=== PATIENT | female | born 1940 | race Caucasian/White ===

== ENCOUNTER 2023-06-30 14:22 | Inpatient (IN) | payer MEDICARE, SELFPAY ==
[2023-06-30 14:30] VITALS: BP 118/73; PULSE 110; RESP 20; TEMP 37.2; O2SAT 95
--- NOTE | 2023-06-30 14:48 | W.ED.GENAD ---
Discharge Plan Disposition Patient Disposition: Admit to [facility] Condition: Poor Discharge Details Clinical Impression: OSWALDO (acute kidney injury), CAP (community acquired pneumonia), Sepsis Primary Care Provider: Unknown,Unknown ED Provider: Marco Ria and New Rx's Prescriptions: No Action levothyroxine Patient Comments: pt does not know the dose of medication atorvastatin Patient Comments: pt states takes a statin every night but doesnt know dose or which brand DuoNeb Rx Instructions: pt states taking a nebulizer 2x daily but does not know the kind of medication. Medical Decision Making Patient presenting with overall vague symptoms with report of recent flulike illness. She does report cough with increased sputum production and has markedly diminished breath sounds in the right base with wheeze and rhonchi scattered throughout the rest of her lung guajardo. She appears to be extremely dehydrated and dry. IV ordered with a liter of fluids, laboratory studies, chest x-ray, urinalysis, EKG. Patient's EKG is sinus rhythm, nonspecific ST changes, nothing acute. White count markedly elevated to 31.6. She is anemic. Likely has OSWALDO with a BUN of 38 and a creatinine of 1.1 but no baseline here. Nasal swab is negative for flu, COVID, RSV. Chest x-ray per my read with large right pneumonia. She is ordered for IV ceftriaxone and oral azithromycin. She is finishing her liter of LR. Still has not produced urine and will likely need more fluids. Blood pressure remained stable. Discussed with hospitalist service. Patient accepted for admission to [facility] for further management. Lab Data Lab results reviewed: Yes I reviewed the patient's lab results. ECG Data Attestation: I personally reviewed and interpreted this ECG (s) as follows: Prior ECG tracings: not available for review Interpretation: see EKG HPI General Mode of arrival: wheelchair. Date/Time Provider Initiated Documentation: 06/30/23 14:48. Information obtained by: patient and family. HPI Narrative: Patient presents to ED brought in by her brother with generalized weakness, malaise, body aches, chapped lips. Reportedly had flulike symptoms a couple weeks ago. Seem to get over that for the most part but continues to have cough productive of sputum, generalized weakness and malaise, body aches. Her primary care physician is over in the [facility]. She has history of COPD and uses DuoNebs. She does not complain of worsening shortness of breath but does complain of cough productive of thick sputum. She has had decreased oral intake. She denies having headache, chest pain, abdominal pain, back pain. Related Data Home Medications Medication Instructions Recorded Confirmed DuoNeb 06/30/23 atorvastatin 06/30/23 levothyroxine 06/30/23 Allergies Allergy/AdvReac Type Severity Reaction Status Date / Time No Known Allergies Allergy Unverified 06/30/23 14:38 General Stated Complaint: GenMedical KRISTIN: 3 Review of Systems Narrative: per HPI PFSH All Active Problems (Updated 06/30/23 @ 16:42 by Marco Rai MD) Sepsis (Acute) CAP (community acquired pneumonia) (Acute) OSWALDO (acute kidney injury) (Acute) Medical History COPD (chronic obstructive pulmonary disease) Hypothyroid Hypercholesterolemia Social History Smoking/Tobacco Use Status: Never Smoking risk assessment performed?: Yes Exam Narrative Exam Narrative: Const: Frail thin elderly female in NAD. HEENT: NC/AT. Normal facial exam. Dry mucous membranes. Eyes: Normal conjunctiva and sclera. Neck: Supple. Trachea midline. Lungs: Normal respiratory effort. Lungs very diminished in the right base with faint wheeze and rhonchi throughout rest of lung guajardo. Cor: RRR with loud mitral murmur and displaced PMI. GI: Soft. NT/ND. No guarding or rebound Neuro: A+O x 3. Normal speech, mentation, gait. Cranial nerves II - XII grossly intact. No gross motor or sensory deficit. Ext: No C/C. 2+ bilateral lower extremity edema. Skin: Warm and dry without rash. Course Vital Signs Vital signs: Vital Signs Temperature 99.0 F 06/30/23 14:30 Pulse 110 H 06/30/23 14:30 Respiratory Rate 20 06/30/23 14:30 Blood Pressure 118/73 06/30/23 14:30 Pulse Oximetry 95 06/30/23 14:30 Temperature 99.0 F 06/30/23 14:30 Temperature Source Skin 06/30/23 14:30 Pulse 110 H 06/30/23 14:30 Respiratory Rate 20 06/30/23 14:30 Blood Pressure 118/73 06/30/23 14:30 Blood Pressure Position Sitting 06/30/23 14:30 Pulse Oximetry 95 06/30/23 14:30 Oxygen Delivery Method Room Air 06/30/23 14:30 Oxygen Flow Rate 0 06/30/23 14:30 Pain Level 10 06/30/23 14:30
--- NOTE | 2023-06-30 15:00 | RT.EKG_ITS ---
APPROVED REPORT Exam: Resting ECG Reason for Exam: tachycardia Patient Location: E HR:96 bpm ECG Measurements Heart Rate 96 AXIS NE 134 P 87 QRSd 93 QRS 79 QT 339 T 82 QTc 428 Conclusion Sinus rhythm...normal P axis, V-rate 60- 99 Probable left atrial enlargement...P >50mS, <-0.10mV V1 Nonspecific T abnrm, anterolateral leads...T <-0.10mV, I aVL V2-V6 I have reviewed and interpreted ECG and agree with software generated interpretation.
[2023-06-30] MEDS: Lactated Ringers 1,000 ML 1000 ML IV (15:33)
[2023-06-30 15:36] LABS: HCT 31.1 % (36.0-46.0); HGB 9.9 g/dL (11.2-15.7); MCH 26.5 pg (27.0-33.0); MCHC 31.8 % (32.0-36.0); MCV 83 fL (80-95); Platelet Count 503 10^3/uL (130-400); RBC 3.74 10^6/uL (3.93-5.22); RDW 16.1 % (11.7-14.6); RDW-SD 49.1 fL
[2023-06-30 15:48] LABS: Absolute Lymphocyte Count 0.32 10^3/uL (1.2-3.4); Absolute Monocyte Count 1.58 10^3/uL (0.1-0.8); Absolute Neutrophil Count 29.66 10^3/uL (1.2-6.7); Bands % 1
[2023-06-30 15:49] LABS: Diff Comment Diff Reviewed; Hypochromasia 1+
[2023-06-30 15:50] LABS: WBC 31.55 10^3/uL (4.4-10.8)
[2023-06-30 15:51] LABS: ALT 29 U/L (14-59); AST 31 U/L (15-37); Albumin 2.2 g/dL (3.4-5.0); Alkaline Phosphatase 157 U/L (46-116); Anion Gap 9.4 mmol/L (3-11); BUN 38 mg/dL (7-18); Bilirubin, Total 0.7 mg/dL (0.2-1.0); CO2 28.6 mmol/L (21.0-32.0); CREATININE 1.1 mg/dL (0.55-1.02); Calcium 9.5 mg/dL (8.5-10.1); Chloride 97 mmol/L (98-107); Estimated GFR 50.48 (mL/min/1.73m2); Glucose 96 mg/dL (74-106); Magnesium 2.1 mg/dL (1.8-2.4); Potassium 3.8 mmol/L (3.5-5.1); Sodium 135 mmol/L (136-145); Total Protein 7.8 g/dL (6.4-8.2)
[2023-06-30 16:18] LABS: COVID-19 PCR Negative (Negative); Influenza A PCR Negative (Negative); Influenza B PCR Negative (Negative); RSV PCR Negative (Negative)
[2023-06-30 16:21] LABS: Source Nasopharynx
--- NOTE | 2023-06-30 16:30 | DI.RAD_ITS ---
Exam(s) XR CHEST 2V PA LATERAL EXAM: XR CHEST 2V PA LATERAL CLINICAL HISTORY: cough, decreased left breath sounds TECHNIQUE: 2D digital imaging was performed of the chest. Two images were obtained. PA and lateral views were obtained. COMPARISON: No exams were available for comparison FINDINGS: MEDIASTINUM: Normal. HEART: Normal. PULMONARY VASCULATURE: Normal. LUNGS: The lungs appear hyperinflated suggesting underlying COPD. Multifocal opacities are seen in t he lungs. PLEURAL SPACE: No pleural effusion or pneumothorax. BONE:Within normal limits for the patient's age. OTHER FINDINGS:Normal. IMPRESSION: Multifocal opacities in the lung suspicious for pneumonia. DATA REPOSITORY: RADIATION DOSE DELIVERED:
--- NOTE | 2023-06-30 17:13 | W.PM.HP.N ---
Date of service: 06/30/23 Time of Service: 17:13 Assessment and Plan Assessment and plan (1) Sepsis: Status: Acute Assessment and plan: Tachycardic, elevated white blood count, and lactate 1.6. Received IV hydration. Source community-acquired pneumonia, we will continue antibiotic therapy as initiated in the ED blood cultures are pending heart rate has improved to the 90s. Trend lactic acid (2) CAP (community acquired pneumonia): Status: Acute Assessment and plan: Admit to the medical surgical unit continue day 1 of ceftriaxone and azithromycin We will add Mucinex nebulizer Acapella and incentive spirometer. (3) OSWALDO (acute kidney injury): Status: Acute Assessment and plan: Receiving IV hydration will avoid nephrotoxic drugs and renal dose meds as needed Suspect prerenal due to dehydration (4) Hypothyroid: Status: Chronic Assessment and plan: We will continue levothyroxine after med rec check by [facility] telepharmary check TSH (5) Discharge planning issues: Status: Acute Assessment and plan: Patient will consult physical therapy for discharge planning recommendations DVT prophylaxis with enoxaparin daily Case management will be following for discharge planning Discussed with Dr. Wing History of Present Illness History of Present Illness Chief Complaint: cough Narrative: This is an 83-year-old female patient who resides with her brother and his who presents for evaluation to the emergency department cough increased sputum production and malaise. She is a poor historian. She denies fever or chest pain. Her work-up in the emergency department included routine lab chest x-ray UA EKG. She received a liter of fluid. Her work-up significant for elevated white blood count viral swab negative for flu COVID RSV. Chest x-ray significant for right-sided pneumonia. She received ceftriaxone and azithromycin and will be admitted to hospitalist services for further management. Review of Systems All systems reviewed & are unremarkable except as noted in HPI and below PFSH All Active Problems (Updated 06/30/23 @ 21:09 by Kassie Garrison NP) Discharge planning issues (Acute) Hypothyroid (Chronic) Sepsis (Acute) CAP (community acquired pneumonia) (Acute) OSWALDO (acute kidney injury) (Acute) Medical History COPD (chronic obstructive pulmonary disease) Hypothyroid Hypercholesterolemia Social History Smoking/Tobacco Use Status: Never Smoking risk assessment performed?: Yes Housing: house Meds Allergies and Home Medications Allergies Allergy/AdvReac Type Severity Reaction Status Date / Time No Known Allergies Allergy Unverified 06/30/23 14:38 Home Medications Medication Instructions Recorded Confirmed Type DuoNeb 06/30/23 History atorvastatin 06/30/23 History levothyroxine 06/30/23 History Exam Narrative Exam Narrative: Frail elderly female in no acute distress resting on the stretcher. Head is atraumatic oral mucosa slightly dry, no JVD, cardiovascular regular rate and rhythm respirations are even and unlabored breath sounds diminished throughout with scattered expiratory wheeze. Abdomen benign extremities trace edema bilateral lower moves all extremities. She is nontoxic-appearing and well perfused no oxygen requirement satting in the mid 90s on room air. Const General: cooperative and comfortable Nutritional Appearance: thin Orientation: alert and awake HENTX Head: normal to inspection, normocephalic and atraumatic Results Labs 06/30/23 15:28 06/30/23 15:28 Labs: Laboratory Results - last 24 hr 06/30/23 06/30/23 15:25 15:28 WBC 31.55 H* RBC 3.74 L Hgb 9.9 L Hct 31.1 L MCV 83 MCH 26.5 L MCHC 31.8 L RDW 16.1 H Plt Count 503 H MPV 9.0 Immature Gran % 0.0 Neutrophils % 93.0 Band Neutrophils % 1 Lymphocytes % 1.0 Monocytes % 5.0 Eosinophils % 0.0 Basophils % 0.0 Nucleated RBC % 0.0 Absolute Neutrophils 29.66 H Absolute Lymphocytes 0.32 L Absolute Monocytes 1.58 H Absolute Eosinophils 0.00 Absolute Basophils 0.00 RBC Morphology See Below Hypochromasia 1+ Sodium 135 L Potassium 3.8 Chloride 97 L Carbon Dioxide 28.6 Anion Gap 9.4 BUN 38 H Creatinine 1.1 H Est GFR (CKD-EPI 2020) 50.48 Glucose 96 Calcium 9.5 Magnesium 2.1 Total Bilirubin 0.7 AST 31 ALT 29 Alkaline Phosphatase 157 H Total Protein 7.8 Albumin 2.2 L COVID-19 Source Nasopharynx SARS-CoV-2 (PCR) Negative Influenza Type A (PCR) Negative Influenza Type B (PCR) Negative RSV (PCR) Negative Last Vital Signs Temp 37.2 C 06/30/23 14:30 Pulse 110 H 11/17/23 14:30 Resp 20 06/30/23 14:30 BP 118/73 06/30/23 14:30 Pulse Ox 95 06/30/23 14:30 Time Spent Time spent with Patient: 40-54 minutes Time was spent: preparing to see the patient(eg.review tests), obtaining and/or reviewing separately otained hiistory, ordering medications,tests, procedures, indepentently interpreting results and counseling the patient
[2023-06-30 17:14] LABS: Lactate 1.1 mmol/L (0.6-1.4)
[2023-06-30] MEDS: cefTRIAXone 1 GM/50 ML BAG IVPB (17:34)
[2023-06-30 18:03] VITALS: BP 146/82; PULSE 99; RESP 18; TEMP 35.6; O2SAT 94
[2023-06-30] MEDS: Enoxaparin 40 MG/0.4 ML SYR SC (19:30)
[2023-06-30 20:00] VITALS: BP 146/82; PULSE 99; RESP 18; TEMP 35.6; O2SAT 94
[2023-06-30 20:02] LABS: Lactate 1.6 mmol/L (0.6-1.4)
[2023-06-30 22:51] LABS: Lactate 0.9 mmol/L (0.6-1.4)
[2023-07-01] MEDS: Lactated Ringers 1,000 ML 75 ML IV (00:40)
[2023-07-01 01:24] LABS: Bilirubin Negative (Negative); Blood Negative (Negative); Clarity Clear (Clear); Glucose Negative (Negative); Ketones Negative (Negative); Leukocyte Esterase Negative (Negative); Nitrite Negative (Negative); Specific Gravity 1.015 (1.005-1.025); pH 5.5 (5-8)
[2023-07-01 06:45] LABS: HCT 26.3 % (36.0-46.0); HGB 8.2 g/dL (11.2-15.7); MCH 26.1 pg (27.0-33.0); MCHC 31.2 % (32.0-36.0); MCV 84 fL (80-95); MPV 9.4 fL (8.0-11.0); Platelet Count 422 10^3/uL (130-400); RBC 3.14 10^6/uL (3.93-5.22); RDW-SD 48.9 fL; WBC 17.83 10^3/uL (4.4-10.8)
[2023-07-01 07:09] VITALS: BP 137/67; PULSE 74; RESP 16; TEMP 36.5; O2SAT 95
--- NOTE | 2023-07-01 07:10 | NUR.NOTE ---
Accessed pt chart to determine number of EKG orders. Nursing Note:
[2023-07-01 07:16] LABS: Anion Gap 5.7 mmol/L (3-11); BUN 31 mg/dL (7-18); CO2 29.3 mmol/L (21.0-32.0); CREATININE 0.9 mg/dL (0.55-1.02); Calcium 8.7 mg/dL (8.5-10.1); Chloride 101 mmol/L (98-107); Estimated GFR 64.23 (mL/min/1.73m2); Glucose 104 mg/dL (74-106); Magnesium 1.8 mg/dL (1.8-2.4); Potassium 3.1 mmol/L (3.5-5.1); Sodium 136 mmol/L (136-145); TSH (W/Ref FT4) 7.83 uIU/mL (0.36-3.74)
[2023-07-01 07:32] LABS: FREE T4 1.33 ng/dL (0.76-1.46)
--- NOTE | 2023-07-01 07:53 | TELEP.MEDR_ITS ---
Date of service: 07/01/23 Time of Service: 07:54 Telepharmacy Home Med Rec Allergies Allergies: No Known Allergies Allergy (Unverified 06/30/23 14:38) Interview Person Interviewed: * Patient Quality Quality of Interview/Accuracy of Medication List: Good Sources Sources used to compile medication list: Xopik Medication List and SureScripts Changes made to Home Medication List: ADDITIONS: * Vitamin D 2000 units PO daily * Calcium 1200mg PO daily DELETIONS: * none CHANGES: * none Additional Notes Additional Notes: * none Recommended Changes Recommended Changes(reason for recommendation): * none Attestation: The home medication list is now updated to the best of my knowledge and is ready to be reconciled by the provider. Please contact the TelePharmacy Medication Reconciliation Pharmacist at for any questions.
--- NOTE | 2023-07-01 07:53 | TELEP.MEDREC ---
Date of service: 07/01/23 Time of Service: 07:54 Telepharmacy Home Med Rec Allergies Allergies: No Known Allergies Allergy (Unverified 06/30/23 14:38) Interview Person Interviewed: Patient Quality Quality of Interview/Accuracy of Medication List: Good Sources Sources used to compile medication list: ROXIMITY Medication List and SureScripts Changes made to Home Medication List: ADDITIONS: Vitamin D 2000 units PO daily Calcium 1200mg PO daily DELETIONS: none CHANGES: none Additional Notes Additional Notes: none Recommended Changes Recommended Changes(reason for recommendation): none Attestation: The home medication list is now updated to the best of my knowledge and is ready to be reconciled by the provider. Please contact the TelePharmacy Medication Reconciliation Pharmacist at for any questions.
--- NOTE | 2023-07-01 08:33 | IN_ITS ---
PT Notes Visit Reasons: Sepsis PNA Inpatient Physical Therapy Evaluation Date: 07/01/23 Referring Doctor: Kassie Garrison NP PT Orders: PT CONSULT: safety consultation for discharge planning Precautions: fall Patient Profile/Admitting Diagnosis: This is an 83-year-old female who presented for evaluation to the emergency department cough increased sputum production and malaise She was admitted for management of community acquired pneumonia and sepsis. Social History/Home Situation: Patient lives with her brother and his . Ambulates independently without device. No longer drives. States that she's always been in excellent health, and has only been in the hospital once before. She's very anxious to return home. Equipment Owned/DME: none Subjective: Jess initially declines PT, stating she'd like to eat her aydin akfast first. She reports that she was able to walk to the chair from her bed without difficulty. Denies h/o falls. Objective: General Observation: Resting in chair with IV in LUE. Mental Status: A&Ox3. Has specific questions about her medications and medical management; deferred questions to nursing and medical staff. Requires redirecting for purpose of PT consultation. Pain: denies ROM: Right Upper Extremity: WFL Left Upper Extremity: WFL Right Lower Extremity: WFL Left Lower Extremity: WFL Strength: Right Upper Extremity: Grossly 3/5 for all motions. Quality Control Lab Technician is strong and equal. Left Upper Extremity: Grossly 3/5 for all motions. Quality Control Lab Technician is strong and equal. Right Lower Extremity: Hip flexion 5/5. Quads 5/5. DF 5/5. Left Lower Extremity: Hip flexion 5/5. Quads 5/5. DF 5/5. Bed Mobility/Transfers: reports independent bed mobility sit-stand: supervision stand-sit: supervision Gait: Ambulates 150' with FWW, SBA. Requires min cues for FWW management. Balance: Static Sitting: normal Dynamic Sitting: good Static Standing: good Dynamic Standing: fair Special Tests: Mobility Limitations Standardized Measure [facility] AM-PAC 6 clicks Basic Mobility Inpatient Short Form: Raw Score: 22 CMS Score: 21% impairment Informed Consent/Education: Patient instructed in purpose of PT consult and plan of care. Treatment: Initial Evaluation (89089) Therapeutic Activities ([id number]) (15 minutes) -began with static standing, 30 seconds x 2. Patient requires wide HOLLAND and demonstrates stooped trunk positioning -ambuates as above, with need for cues for FWW management. Patient opts to ambulate with walker, stating she's been in bed too long and feels wobbly. -upon return to room, ambulates 6' with supervision only, no AD Assessment: Patient is an 83 year old female referred to physical therapy services for safety consult for discharge planning. Patient presents with decreased balance and activity tolerance related to acute illness. Although she required FWW for initiation of gait today, she demosntrated safe short distance ambulation in her room without AD. She additionally has built in rails from her bedroom to the living space in her home, and do not anticipate need for AD upon discharge. She requires skilled PT intervention during her acute care stay to maximize mobility and safety, and is safe for d/c home with family support once medically stable. She currently demonstrates the following impairment level findings: 1. decreased balance 2. decreased activity tolerance Impairments are contributing to the following functional limitations: 1. requiring UE support for community distance ambulation Patient is assessed as low 10729 complexity based on the following: History: Patient is an 83 year old female seen in acute care setting where she is being managed for pneumonia and sepsis. Complicating factors include advanced age and acute medical issues. Examination: functional limitations as above Presentation: stable Decision Making: low Goals: Goals X1 week 1. Supine-Sit : supervision 2. Sit-Supine : supervision 3. Sit-Stand : supervision 4. Stand-Sit : supervision 5. Bed-Chair : supervision 6. Chair-Bed : supervision 7. Gait : supervision wihtout AD x 50' Plan of Care/Treatment Plan: 1-2x/day, 7 days/week x 1 week. Plan of care has been reviewed with the DECORATING CONSULTANT providing the service under Physical Therapy direction. Initiate Physical Therapy intervention for strengthening, bed mobility, transfers, gait, stairs, balance training, use of assistive device. DISCHARGE RECOMMENDATIONS: Home with services ( PT) TREATMENT CODE/TIME: [id number]; [id number] ([id number], [id number]) Janey Shea, PT, DPT [facility]
--- NOTE | 2023-07-01 09:31 | INITIAL_ITS ---
Date of service: 07/01/23 Time of Service: 09:31 Care Management Initial Assmt Initial Assessment REASON FOR HOSPITALIZATION:: sepsis PREVIOUS FUNCTIONAL STATUS/SOCIAL/FAMILY SUPPORTS:: Jess lives in [place] with her brother Venkat and his Viridiana. She has never been nor does she have any children. 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 She is independent at baseline and very active for her age. CURRENT FUNCTIONAL STATUS:: Jess was sitting up in a chair visiting with her brother when CM met with her. She was smiling and pleasant but seemed obsessed with getting something for her dry lips and a denture cup, which CM provided. Jess repeatedly informed CM that she lives with her brother and is safe and does not need any additional help. Her brother confirmed this. She was admitted with pneumonia but is not hypoxic and does not have an oxygen requirement. Per provider it is possible she may discharge as soon as tomorrow. ADVANCE DIRECTIVES:: none Has patient been provided with info about the portal/API?: Yes Did the patient sign up for the portal?: No CODE STATUS:: Full Code INSURANCE COVERAGE / FINANCIAL ISSUES:: Medicare CURRENT HOME/COMMUNITY SERVICES/EQUIPMENT:: none PRIMARY CARE PHYSICIAN:: Jess has a PCP at a [facility] medical clinic in [place], [place] The PCP she used to see named Dr. Patel is no longer with that practice, however other practitioners are covering. POTENTIAL DISCHARGE NEEDS:: follow up with her PCP and plan of care PATIENT/FAMILY EDUCATION NEEDS:: Review of discharge instructions, limitations, follow up plan, discuss Ask Me Three TRANSPORTATION:: via private vehicle with family PLAN:: Anticipate Jess will be discharged home with no new services. She will follow up with her community providers and plan of care and transport with family. CM will folow and continue to assess discharge needs and readiness. PFSH All Active Problems (Updated 06/30/23 @ 21:09 by Kassie Garrison NP) Discharge planning issues (Acute) Hypothyroid (Chronic) Sepsis (Acute) CAP (community acquired pneumonia) (Acute) OSWALDO (acute kidney injury) (Acute) Medical History COPD (chronic obstructive pulmonary disease) Hypothyroid Hypercholesterolemia Social History Smoking/Tobacco Use Status: Never Smoking risk assessment performed?: Yes Housing: house
[2023-07-01] MEDS: Azithromycin 250 MG TAB 500 MG PO (10:03)
[2023-07-01] MEDS: guaiFENesin 600 MG TABCR PO ×2 (10:03→19:56)
[2023-07-01] MEDS: Potassium Chloride 20 MEQ TABCR 40 MEQ PO (10:26)
[2023-07-01 16:31] VITALS: BP 130/84; PULSE 77; RESP 18; TEMP 36.1; O2SAT 96
[2023-07-01] MEDS: Normal Saline Flush 10 ML SYR IVP ×2 (16:49→23:30)
[2023-07-01] MEDS: cefTRIAXone 1 GM/50 ML BAG IVPB (17:00)
--- NOTE | 2023-07-01 17:20 | W.PM.PROGNOT ---
Date of Service Date of service: 07/01/23 Time of Service: 17:20 Assessment and Plan Assessment and plan (1) Sepsis: Status: Resolved Assessment and plan: Tachycardic, elevated white blood count, and lactate 1.6. Received IV hydration. Source community-acquired pneumonia, we will continue antibiotic therapy as initiated in the ED blood cultures are pending heart rate has improved to the 90s. Trend lactic acid (2) CAP (community acquired pneumonia): Status: Acute Assessment and plan: continue day 2 of ceftriaxone and azithromycin Mucinex nebulizer Acapella and incentive spirometer. Respiratory status stable with no oxygen requirements (3) OSWALDO (acute kidney injury): Status: Resolved Assessment and plan: Receiving IV hydration will avoid nephrotoxic drugs and renal dose meds as needed Suspect prerenal due to dehydration (4) Hypothyroid: Status: Chronic Assessment and plan: We will continue levothyroxine after med rec check by [facility] [place] telepharmary check TSH (5) Discharge planning issues: Status: Acute Assessment and plan: Patient will consult physical therapy for discharge planning recommendations DVT prophylaxis with enoxaparin daily Case management will be following for discharge planning Discussed with Dr. Magana Subjective Subjective Patient reports: no new complaints, tolerating liquids well, tolerating a regular diet and afebrile; denies shortness of breath Exam Narrative Exam Narrative: Frail elderly female in no acute distress resting on the stretcher. Head is atraumatic oral mucosa slightly dry, no JVD, cardiovascular regular rate and rhythm respirations are even and unlabored breath sounds diminished throughout with scattered expiratory wheeze. Abdomen benign extremities trace edema bilateral lower moves all extremities. She is nontoxic-appearing and well perfused no oxygen requirement satting in the mid 90s on room air. Objective Last Vital Signs Temp 36.1 C L 07/01/23 16:31 Pulse 77 07/01/23 16:31 Resp 18 07/01/23 16:31 BP 130/84 07/01/23 16:31 Pulse Ox 96 07/01/23 16:31 Laboratory Results - last 24 hr 06/30/23 06/30/23 07/01/23 19:54 22:45 01:15 WBC RBC Hgb Hct MCV MCH MCHC RDW Plt Count MPV VBG Lactate 1.6 H 0.9 Sodium Potassium Chloride Carbon Dioxide Anion Gap BUN Creatinine Est GFR (CKD-EPI 2020) Glucose Calcium Magnesium TSH Free T4 Urine Color Yellow Urine Clarity Clear Urine pH 5.5 Ur Specific [place] 1.015 Urine Protein Negative Urine Ketones Negative Urine Blood Negative Urine Nitrite Negative Urine Bilirubin Negative Urine Urobilinogen 1.0 H Ur Leukocyte Esterase Negative Urine Glucose Negative 07/01/23 06:02 WBC 17.83 H RBC 3.14 L Hgb 8.2 L Hct 26.3 L MCV 84 MCH 26.1 L MCHC 31.2 L RDW 16.0 H Plt Count 422 H MPV 9.4 VBG Lactate Sodium 136 Potassium 3.1 L Chloride 101 Carbon Dioxide 29.3 Anion Gap 5.7 BUN 31 H Creatinine 0.9 Est GFR (CKD-EPI 2020) 64.23 Glucose 104 Calcium 8.7 Magnesium 1.8 TSH 7.83 H Free T4 1.33 Urine Color Urine Clarity Urine pH Ur Specific [place]ac Urine Protein Urine Ketones Urine Blood Urine Nitrite Urine Bilirubin Urine Urobilinogen Ur Leukocyte Esterase Urine Glucose Time Spent with Patient Time Spent with Patient: 25-34 minutes Time was spent: preparing to see the patient(eg.review tests), obtaining and/or reviewing separately otained hiistory, ordering medications,tests, procedures and indepentently interpreting results
[2023-07-01] MEDS: Enoxaparin 40 MG/0.4 ML SYR SC (18:50)
[2023-07-01] MEDS: Calcium Carbonate *TUMS* 500 MG CHEW PO (19:56)
[2023-07-01 20:21] VITALS: BP 126/58; PULSE 95; RESP 18; TEMP 36.3; O2SAT 95
[2023-07-01] MEDS: Pantoprazole 40 MG VIAL IVP (23:30)
[2023-07-01 23:46] VITALS: BP 129/62; PULSE 80; RESP 18; TEMP 36.5; O2SAT 97
[2023-07-02 06:26] LABS: Abs Immature Grans 0.37 10^3/uL (0.0-0.06); Absolute Basophil Count 0.05 10^3/uL (0.0-0.2); Absolute Eosinophil Count 0.22 10^3/uL (0.0-0.7); Absolute Lymphocyte Count 0.71 10^3/uL (1.2-3.4); Absolute Neutrophil Count 8.31 10^3/uL (1.2-6.7); Basophils % 0.5; Eosinophils % 2.1; HCT 26.4 % (36.0-46.0); HGB 8.2 g/dL (11.2-15.7); Immature Grans % 3.6; Lymphocytes % 6.9; MCH 26.2 pg (27.0-33.0); MCHC 31.1 % (32.0-36.0); MCV 84 fL (80-95); MPV 9.2 fL (8.0-11.0); Monocytes % 6.8; Neutrophils % 80.1; Platelet Count 401 10^3/uL (130-400); RBC 3.13 10^6/uL (3.93-5.22); RDW 16.2 % (11.7-14.6); WBC 10.36 10^3/uL (4.4-10.8)
[2023-07-02 06:48] LABS: Anion Gap 4.9 mmol/L (3-11); BUN 24 mg/dL (7-18); CO2 29.1 mmol/L (21.0-32.0); CREATININE 0.9 mg/dL (0.55-1.02); Calcium 8.5 mg/dL (8.5-10.1); Chloride 102 mmol/L (98-107); Estimated GFR 64.23 (mL/min/1.73m2); Glucose 87 mg/dL (74-106); Potassium 4.2 mmol/L (3.5-5.1); Sodium 136 mmol/L (136-145)
[2023-07-02] MEDS: Azithromycin 250 MG TAB 500 MG PO (08:45)
[2023-07-02] MEDS: Levothyroxine 50 MCG TAB PO (08:46)
[2023-07-02 08:47] VITALS: BP 161/67; PULSE 60; RESP 16; TEMP 35.6; O2SAT 92
[2023-07-02] MEDS: guaiFENesin 600 MG TABCR PO ×2 (08:47→20:06)
--- NOTE | 2023-07-02 10:34 | PT.INTREAT ---
PT Notes Visit Reasons: Sepsis PNA Date: 07/02/23 PRECAUTIONS: Fall, standard, activity as tolerated. SUBJECTIVE: Pt in recliner awake, agreed to participating with therapy OBJECTIVE: no complaint, confused with how the spyrometer and acapella works. ? PAIN: no complaint VITALS: monitored by nursing staff. Therapeutic Activities 54396 20mins: Direct one-on-one instruction in dynamic activities to improve functional performance. ? ? BED MOBILITY/TRANSFERS? Rolling L/R: supervision Supine-sit:supervision ? Sit-supine: supervision ? Sit-stand: SBA ? Stand-sit: SBA? Bed-Chair: SBA ? Chair-bed: SBA Gait training [id number]: Gait trained using FWW, SBA/CGA 300', stoop forward posture, low step height and step length Provided skilled cues and instruction on performance and technique throughout. ASSESSMENT:? pt cue for increased step height and length, to get closer to the FWW for increased stability and control, pt education about how to use spyrometer and acapella, eventually labeling the unit for pt to use properly. pt able to utilize device the right way after review. PLAN: Continue strengthening per plan of care to patient tolerance. TREATMENT CODE/TIME: [id number] 20mins (10:10-10:30am)
[2023-07-02 11:07] VITALS: BP 122/69; PULSE 72; RESP 16; TEMP 35.9; O2SAT 92
--- NOTE | 2023-07-02 15:15 | W.PM.PROGNOT ---
Date of Service Date of service: 07/02/23 Time of Service: 15:15 Assessment and Plan Assessment and plan (1) Sepsis: Status: Resolved Assessment and plan: lactic acid, white count and heart rate normalized (2) CAP (community acquired pneumonia): Status: Acute Assessment and plan: continue day 3 of ceftriaxone and azithromycin Mucinex nebulizer Acapella and incentive spirometer. Respiratory status remains stable with no oxygen requirements (3) OSWALDO (acute kidney injury): Status: Resolved Assessment and plan: resolved with hydration (4) Hypothyroid: Status: Chronic Assessment and plan: We will continue levothyroxine, defer changes to outpatient team TSH 7.83 (5) Discharge planning issues: Status: Acute Assessment and plan: Patient will consult physical therapy for discharge planning recommendations DVT prophylaxis with enoxaparin daily Case management will be following for discharge planning Discussed with Dr. Magana Subjective Subjective Patient reports: no new complaints, tolerating liquids well, tolerating a regular diet and afebrile; denies shortness of breath Interval history since last seen: respiratory status remains stable with no oxygen requirements, working with PT and has been reambulated. Exam Narrative Exam Narrative: Frail elderly female in no acute distress resting on the stretcher. Head is atraumatic oral mucosa slightly dry, no JVD, cardiovascular regular rate and rhythm respirations are even and unlabored breath sounds diminished throughout with scattered expiratory wheeze. Abdomen benign extremities trace edema bilateral lower moves all extremities. She is nontoxic-appearing and well perfused no oxygen requirement satting in the mid 90s on room air. Objective Last Vital Signs Temp 35.9 C L 07/02/23 11:07 Pulse 72 07/02/23 11:07 Resp 16 07/02/23 11:07 BP 122/69 07/02/23 11:07 Pulse Ox 92 07/02/23 11:07 Laboratory Results - last 24 hr 07/02/23 06:02 WBC 10.36 RBC 3.13 L Hgb 8.2 L Hct 26.4 L MCV 84 MCH 26.2 L MCHC 31.1 L RDW 16.2 H Plt Count 401 H MPV 9.2 Immature Gran % 3.6 Neutrophils % 80.1 Lymphocytes % 6.9 Monocytes % 6.8 Eosinophils % 2.1 Basophils % 0.5 Nucleated RBC % 0.0 Absolute Neutrophils 8.31 H Absolute Lymphocytes 0.71 L Absolute Monocytes 0.70 Absolute Eosinophils 0.22 Absolute Basophils 0.05 Sodium 136 Potassium 4.2 D Chloride 102 Carbon Dioxide 29.1 Anion Gap 4.9 BUN 24 H Creatinine 0.9 Est GFR (CKD-EPI 2020) 64.23 Glucose 87 Calcium 8.5 Time Spent with Patient Time Spent with Patient: 25-34 minutes Time was spent: preparing to see the patient(eg.review tests), obtaining and/or reviewing separately otained hiistory, ordering medications,tests, procedures and indepentently interpreting results
[2023-07-02] MEDS: cefTRIAXone 1 GM/50 ML BAG IVPB (15:23)
[2023-07-02 15:26] VITALS: BP 146/74; PULSE 60; RESP 17; TEMP 36.3; O2SAT 93
[2023-07-02] MEDS: Enoxaparin 40 MG/0.4 ML SYR SC (17:08)
[2023-07-02 19:47] VITALS: BP 154/68; PULSE 82; RESP 16; TEMP 36.1; O2SAT 96
[2023-07-02 22:43] VITALS: BP 96/60; PULSE 65; RESP 16; TEMP 35.7; O2SAT 95
[2023-07-03 03:30] VITALS: BP 152/71; PULSE 87; RESP 16; TEMP 35.7; O2SAT 98
[2023-07-03] MEDS: Levothyroxine 50 MCG TAB PO (05:43)
[2023-07-03 06:52] LABS: HCT 27.7 % (36.0-46.0); HGB 8.7 g/dL (11.2-15.7); MCH 26.4 pg (27.0-33.0); MCHC 31.4 % (32.0-36.0); MCV 84 fL (80-95); MPV 9.5 fL (8.0-11.0); Platelet Count 438 10^3/uL (130-400); RBC 3.29 10^6/uL (3.93-5.22); RDW-SD 49.5 fL; WBC 10.95 10^3/uL (4.4-10.8)
[2023-07-03] MEDS: guaiFENesin 600 MG TABCR PO (07:55)
[2023-07-03] MEDS: Azithromycin 250 MG TAB 500 MG PO (07:55)
[2023-07-03] MEDS: Pantoprazole 40 MG TABCR PO (07:55)
[2023-07-03 07:59] VITALS: BP 150/77; PULSE 73; RESP 18; TEMP 36; O2SAT 94
[2023-07-03 11:10] VITALS: BP 135/70; PULSE 87; RESP 18; TEMP 36; O2SAT 92
--- NOTE | 2023-07-03 11:14 | PT.INTREAT ---
Date of service: 07/03/23 Time of Service: 10:47 PT Notes Visit Reasons: Sepsis PNA Inpatient Physical Therapy Treatment Note [facility] Date: 07/03/23 PRECAUTIONS: Fall, standard, activity as tolerated. SUBJECTIVE: Patient reports feeling much better than when she arrived. Is eager to get home. OBJECTIVE: Sitting up in recliner, agreeable to therapy. ? PAIN: none reported. VITALS: monitored by nursing staff.? BED MOBILITY/TRANSFERS? Rolling L/R: independent Supine-sit: independent ? Sit-supine: independent ? Sit-stand: independent ? Stand-sit: independent ? Bed-Chair: SBA ? Chair-bed: SBA Gait Training ([id number]): Direct one-on-one instruction and skilled instruction in: [x] employing an assistive device [] modified weight-bearing status [] movement sequencing [x] turning and movement with proper form [x] Provided verbal cues for equipment management and technique [] Provided instruction in gait pattern [] Patient education regarding pacing and breathing techniques to maximize activity tolerance? GAIT? Assistive Device: FWW? Weight bearing: full Assist: SBA ? Distance:?300 feet, seated rest, 200 feet ? Deviation: stooped posture, reduced step height, reduced step length. ? ASSESSMENT:? Patient tolerates therapy well, no c/o pain or dyspnea. Is very concerned as to whether her walker is the right height. Believes it should be higher. Believes that it is causing her to stoop however when this therapist adjustst it up, she remains stooped and simply pushes the walker further out in front of her, which is unsafe. PLAN: Continue treatment per plan of care until patient is medically cleared for discharge, possibly today. Provided youth size FWW from [facility]. TREATMENT CODE/TIME: 22 minutes beginning at 10:47
--- NOTE | 2023-07-03 11:50 | W.PM.DS.N ---
Date of service: 07/03/23 Time of Service: 11:50 DS: Diagnosis Discharge Diagnosis (1) Sepsis: Status: Resolved (2) CAP (community acquired pneumonia): Status: Acute (3) OSWALDO (acute kidney injury): Status: Resolved (4) Hypothyroid: Status: Chronic Discharge Plan Disposition Patient Disposition: Home Condition: Stable Discharge Details Reason For Visit: Sepsis PNA Admit Date/Time: 06/30/23 16:46 Admit Provider: Jemal Wing Attending Provider: Jemal Wing Primary Care Provider: Unknown,Unknown Hospital Course Hospital Course: This is a 83-year-old female patient who lives with family members presented to the emergency department with symptoms of cough and shortness of breath. She was diagnosed with community-acquired pneumonia. She was started on ceftriaxone and azithromycin and was found to be dehydrated so provided IV fluids. She was admitted to the medical surgical unit for further evaluation. She was evaluated by physical therapy and safely really ambulated. She remained hemodynamically stable while on the unit oxygenating in the low to mid 90s on room air. She was eating and drinking bowels and bladder functioning. Blood cultures have remained negative. She is stable and ready for discharge to home now she will be down stepped to oral azithromycin and cefpodoxime to complete her course. She should follow-up with her primary care provider for recheck after discharge. There have been no changes to her medications. It was noted that her TSH was 7.38 on this admission and should be followed up by her outpatient team I did not adjust her levothyroxine in the setting of her acute infection. She was also noted to have some cognitive impairment which I suspect is baseline for her so I do question compliance with medication. On admission she was not able to provide prescription information. She is stable for discharge to home with no services. Discharge discussed with Dr. Magana Home Meds and New Rx's Prescriptions: New azithromycin 250 mg tablet 250 mg PO DAILY Qty: 2 0RF cefpodoxime 200 mg tablet 200 mg PO BID Qty: 5 0RF Rx Instructions: must administer with a meal/food Continued atorvastatin 10 mg tablet 10 mg PO QPM Patient Comments: TAKE 1 TABLET BY MOUTH AT BEDTIME levothyroxine 50 mcg tablet 50 mcg PO DAILY Patient Comments: TAKE 1 TABLET BY MOUTH ONCE DAILY ipratropium-albuterol 0.5 mg-3 mg(2.5 mg base)/3 mL solution for nebulization 3 ml INHALATION 4XD Patient Comments: USE 1 AMPULE IN NEBULIZER 4 TIMES DAILY cholecalciferol (vitamin D3) [D3 DOTS] 50 mcg (2,000 unit) tablet 50 mcg PO DAILY calcium carbonate [Calcium 600] 600 mg calcium (1,500 mg) tablet 1,200 mg PO DAILY Discharge Instructions Instructions: Community Acquired Pneumonia (DC) Stand Alone Forms: Nursing Discharge Form Referrals: Unknown,Unknown [Primary Care Provider] - (Per the patient she said her brother will make her appointment with here PCP marleni he sets that all up for her.) Activity:: Activity as Tolerated Equipment/Supplies:: No Equipment Needed Diet:: As Tolerated Discharge Orders Discharge Orders: Discharge Order (Routine); Ordered 07/03/23 Ordered By: Kassie Garrison Discharge Data Discharge Date/Time-TO BE ENTERED AT DEPARTURE: 07/03/23 14:09 DS: Summary Time Spent with Patient providing and/or coordinating discharge services: Less than 30 minutes Status at Discharge Functional status at discharge: independent ambulation Overall status at discharge: patient is back to baseline Mental Status: mental status grossly normal and other (Cognitive impairment) Speech and Movement: speech and movement normal Mood: congruent mood and other (Cognitive impairment) Affect: normal affect Exam Narrative Exam Narrative: Frail elderly female in no acute distress resting on the stretcher. Head is atraumatic oral mucosa slightly dry, no JVD, cardiovascular regular rate and rhythm respirations are even and unlabored breath sounds diminished throughout with scattered expiratory wheeze. Abdomen benign extremities trace edema bilateral lower moves all extremities. She is nontoxic-appearing and well perfused no oxygen requirement satting in the mid 90s on room air. Psych Mental Status: mental status grossly normal and other (Cognitive impairment) Speech and Movement: speech and movement normal Mood: congruent mood and other (Cognitive impairment) Affect: normal affect DS: Data Vitals/I&O Vitals and I&O: Vital Signs Temperature 36.0 C L 07/03/23 11:10 Temperature Source Tympanic 07/03/23 11:10 Pulse 87 07/03/23 11:10 Pulse Rhythm Regular 07/03/23 03:19 Respiratory Rate 18 07/03/23 11:10 Respiratory Effort Normal, Non-Labored 07/03/23 03:19 Respiratory Depth Normal 07/03/23 03:19 Respiratory Pattern Normal 07/03/23 03:19 Blood Pressure 135/70 07/03/23 11:10 Blood Pressure Position Sitting 06/30/23 14:30 Pulse Oximetry 92 07/03/23 11:10 Oxygen Delivery Method Room Air 07/03/23 11:10 Oxygen Flow Rate 0 07/03/23 11:10 Pain Level 0 07/03/23 11:10 Comment Nurse in room when vitals got done. 07/03/23 07:59 Intake & Output 07/02/23 07/02/23 07/03/23 11:59 23:59 11:59 Intake Total 210 / 260 50 / 260 Output Total 600 / 650 50 / 650 100 / 100 Balance -390 / -390 0 / -390 -100 / -100 Intake: IV 50 / 50 Oral 210 / 210 Output: Urine 600 / 650 50 / 650 100 / 100 Other: Urine Color Yellow Yellow Pale Yellow Urine Appearance Clear Clear Clear Urine Odor Normal Normal Comment hard to tell exactly the amount r/t pt putting an immense amount of toilet paper in the commode after voiding pT voided. Stool Size Small Small Stool Characteristics Formed Brown Voiding Methods Bedside Commode Bedside Commode Toilet Data Completed and Pending Labs on day of discharge: Labs from last 24 hours 07/03/23 05:50 WBC 10.95 H RBC 3.29 L Hgb 8.7 L Hct 27.7 L MCV 84 MCH 26.4 L MCHC 31.4 L RDW 16.0 H Plt Count 438 H MPV 9.5 PFSH All Active Problems (Updated 07/02/23 @ 15:18 by Kassie Garrison NP) Discharge planning issues (Acute) Hypothyroid (Chronic) CAP (community acquired pneumonia) (Acute) Medical History COPD (chronic obstructive pulmonary disease) Hypothyroid Hypercholesterolemia Social History Smoking/Tobacco Use Status: Never Smoking risk assessment performed?: Yes Housing: house Time Spent with Patient Time Spent with Patient: <45 minutes Time was spent: preparing to see the patient(eg.review tests), ordering medications,tests, procedures and indepentently interpreting results
--- NOTE | 2023-07-03 12:17 | PDOC.CMDIS ---
Date of service: 07/03/23 Time of Service: 12:17 LACE Index Scoring Tool Questions: Length of Stay (in days): 3 Was the patient admitted via the E.D.?: Yes Care Management Discharge Plan Reason for Hospitalization: sepsis Discharge Plan: Jess will return home today with no new services. Her brother will drive her home via private vehicle. She will follow up with her PCP and discharge plan of care. She is happy to be going home. Patient/Family Education Needs: Review discharge instructions and limitations, discussion of self care needs including ask me three.
== END 2023-07-03 14:09 | disposition home or self-care (01) | DRG 871 ==
LOC: ER 16:42 → MS 17:58
PROVIDERS: Nurse Practitioner Acute Care; Admitting Provider Family Medicine; Emergency Provider Emergency Medicine; Visit Provider Family Medicine
DX: A41.9 Sepsis, unspecified organism (principal); J18.9 Pneumonia, unspecified organism; N17.9 Acute kidney failure, unspecified; J44.0 Chronic obstructive pulmonary disease with (acute) lower respiratory infection; E03.9 Hypothyroidism, unspecified; E78.00 Pure hypercholesterolemia, unspecified; D64.9 Anemia, unspecified; E86.0 Dehydration
CPT/HCPCS: 00123; 36415; 80048; 80053; 85027; 87637; 93005; 96361; 96365; 97116; 97161; 97530; 99285; J1650; 71046; 81003; 83605; 83735; 84439; 84443; 85025; 93010; 94668; 99223; 99233; 99238; J0696

== ENCOUNTER 2024-03-22 13:31 | Outpatient (REF) | payer MEDICARE, SELFPAY ==
[2024-03-22 16:07] LABS: Abs Immature Grans 0.02 10^3/uL (0.0-0.06); Absolute Basophil Count 0.05 10^3/uL (0.0-0.2); Absolute Eosinophil Count 0.33 10^3/uL (0.0-0.7); Absolute Lymphocyte Count 0.89 10^3/uL (1.2-3.4); Absolute Neutrophil Count 4.43 10^3/uL (1.2-6.7); Basophils % 0.8 %; Eosinophils % 5.3 %; HCT 32.2 % (36.0-46.0); HGB 9.8 g/dL (11.2-15.7); Immature Grans % 0.3 %; Lymphocytes % 14.3 %; MCH 25.8 pg (27.0-33.0); MCHC 30.4 % (32.0-36.0); MCV 85 fL (80-95); Neutrophils % 71.3 %; Platelet Count 275 10^3/uL (130-400); RDW 17.4 % (11.7-14.6); RDW-SD 53.9 fL; WBC 6.22 10^3/uL (4.4-10.8)
[2024-03-22 16:46] LABS: ALT 12 U/L (14-59); AST 21 U/L (15-37); Albumin 3.1 g/dL (3.4-5.0); Alkaline Phosphatase 125 U/L (46-116); Anion Gap 5.7 mmol/L (3-11); BUN 14 mg/dL (7-18); CO2 31.3 mmol/L (21.0-32.0); CREATININE 0.8 mg/dL (0.55-1.02); Calcium 9.3 mg/dL (8.5-10.1); Chloride 103 mmol/L (98-107); Estimated GFR 73.98 (mL/min/1.73m2); Glucose 97 mg/dL (74-106); Sodium 140 mmol/L (136-145); TSH (W/Ref FT4) 3.22 uIU/mL (0.36-3.74); Total Protein 7.7 g/dL (6.4-8.2)
[2024-03-25 12:59] LABS: Iron 26 ug/dL (50-170); Total Iron Binding Capacity 321 ug/dL (250-450); Transferrin Sat 8 % (15-50)
[2024-03-25 18:38] LABS: Folate 13.2 ng/mL (See Note); Vitamin B12 499 pg/mL (211-911)
[2024-03-25 19:29] LABS: Ferritin 29 ng/mL (8-252)
== END 2024-03-22 13:32 | disposition home or self-care (01) ==
LOC: NCHCN 13:31
PROVIDERS: PCP Student in an Organized Health Care Education/Training Program; Visit Provider Student in an Organized Health Care Education/Training Program
DX: D64.9 Anemia, unspecified (principal); E03.9 Hypothyroidism, unspecified; R10.30 Lower abdominal pain, unspecified; Z79.899 Other long term (current) drug therapy
CPT/HCPCS: 80053; 82607; 82728; 82746; 83540; 83550; 84443; 85025

== ENCOUNTER 2024-04-02 01:07 | Outpatient (CLI) | payer MEDICARE, SELFPAY ==
--- NOTE | 2024-04-02 | DI.US_ITS ---
Exam(s) US ABDOMEN PELVIS EXAM: US ABDOMEN PELVIS CLINICAL HISTORY: Lower abd pain, R10.30, with 3 mos of low-grade RLQ pain; TECHNIQUE: Ultrasound abdomen performed using standard protocol. COMPARISON: No exams were available for comparison FINDINGS: Exam limited by large quadrant bowel gas. Patient was not fasting. Gallbladder is contracted and n ot well evaluated. LIVER: Normal size and echogenicity. No focal liver lesions are seen. GALLBLADDER: Contracted, not well evaluated.. SHANKAR'S SIGN: Negative. BILIARY SYSTEM: No intrahepatic or extrahepatic biliary ductal dilation. KIDNEYS: Right kidney normal in size. No evidence of renal calculi. No evidence of hydronephrosis. N o renal mass or cyst identified. Left kidney obscured by bowel gas. PANCREAS: Normal where visualized. SPLEEN: Not enlarged. ABDOMINAL AORTA AND IVC: Visualized portions normal caliber. ASCITES: None seen. Bladder not sufficiently distended to evaluate pelvic contents. It is area obscured by bowel gas. IMPRESSION: Limited exam due to bowel gas. Left kidney is obscured. Gallbladder is contracted. DATA REPOSITORY:
== END 2024-04-02 01:27 ==
LOC: DI 01:07
PROVIDERS: PCP Student in an Organized Health Care Education/Training Program; Visit Provider Student in an Organized Health Care Education/Training Program
DX: R10.30 Lower abdominal pain, unspecified (principal)
CPT/HCPCS: 76700; 76856

== ENCOUNTER 2024-04-19 13:32 | Outpatient (REF) | payer MEDICARE, SELFPAY ==
[2024-04-19 15:34] LABS: Abs Immature Grans 0.02 10^3/uL (0.0-0.06); Absolute Basophil Count 0.03 10^3/uL (0.0-0.2); Absolute Eosinophil Count 0.32 10^3/uL (0.0-0.7); Absolute Neutrophil Count 3.39 10^3/uL (1.2-6.7); Basophils % 0.6 %; Eosinophils % 6.3 %; HCT 31.8 % (36.0-46.0); HGB 9.6 g/dL (11.2-15.7); Immature Grans % 0.4 %; Lymphocytes % 15.8 %; MCH 26.4 pg (27.0-33.0); MCHC 30.2 % (32.0-36.0); MCV 87 fL (80-95); MPV 11.1 fL (8.0-11.0); Monocytes % 9.9 %; Platelet Count 239 10^3/uL (130-400); RBC 3.64 10^6/uL (3.93-5.22); RDW 18.7 % (11.7-14.6); RDW-SD 59.4 fL; WBC 5.06 10^3/uL (4.4-10.8)
== END 2024-04-19 13:33 | disposition home or self-care (01) ==
LOC: NCHCN 13:32
PROVIDERS: PCP Student in an Organized Health Care Education/Training Program; Visit Provider Student in an Organized Health Care Education/Training Program
DX: D64.9 Anemia, unspecified (principal)
CPT/HCPCS: 85025

== ENCOUNTER → 2024-05-20 12:44 | Outpatient (BNVA) | payer MEDICARE, SELFPAY | PROVIDERS: PCP Student in an Organized Health Care Education/Training Program; Referring Provider Student in an Organized Health Care Education/Training Program; Visit Provider Surgery | DX: D64.9 Anemia, unspecified (principal); E03.9 Hypothyroidism, unspecified; R63.6 Underweight; J44.9 Chronic obstructive pulmonary disease, unspecified | CPT/HCPCS: 99214 ==

== ENCOUNTER 2024-05-29 14:22 | Emergency (ER) | payer MEDICARE, SELFPAY ==
[2024-05-29 14:26] VITALS: BP 166/80; PULSE 76; RESP 16; TEMP 36.4; O2SAT 96
--- NOTE | 2024-05-29 14:40 | ED.GENADUL_ITS ---
Discharge Plan Disposition Patient Disposition: Home Condition: Stable Discharge Details Clinical Impression: Fall, CHI (closed head injury) Primary Care Provider: Sean Henderson ED Provider: Kath Elizabeth Home Meds and New Rx's Prescriptions: No Action levothyroxine 50 mcg tablet 75 mcg PO DAILY Patient Comments: TAKE 1 TABLET BY MOUTH ONCE DAILY Ensure Enlive 0.08 gram-1.5 kcal/mL liquid 250 ml PO BID ferrous sulfate [FeroSul] 325 mg (65 mg iron) tablet 325 mg PO DAILY omeprazole 40 mg capsule,delayed release(DR/EC) 40 mg PO DAILY atorvastatin 10 mg tablet 10 mg PO QPM Patient Comments: TAKE 1 TABLET BY MOUTH AT BEDTIME cholecalciferol (vitamin D3) [D3 DOTS] 50 mcg (2,000 unit) tablet 50 mcg PO DAILY calcium carbonate [Calcium 600] 600 mg calcium (1,500 mg) tablet 1,200 mg PO DAILY ipratropium-albuterol 0.5 mg-3 mg(2.5 mg base)/3 mL solution for nebulization 3 ml INHALATION 4XD PRN Patient Comments: USE 1 AMPULE IN NEBULIZER 4 TIMES DAILY Discharge Instructions Additional Instructions: The bruise on your face is getting larger, you can continue to apply ice pack 10 minutes every hour or so to help with this You may be a little sore tomorrow after this fall, you can take Motrin or Tylenol as needed Follow-up with your PCP as needed or return to the emergency department with any concerns HPI General Date/Time Provider Initiated Documentation: 05/29/24 14:37 . Limitations to Documentation: no limitations . Information obtained by: patient and family () . HPI Narrative: 84 y F with PMH of dementia, gait instability, anemia, presents for evaluation after a fall. reports she was upstairs getting iron infusion and when she was finished, she missed the step down out of the chair and lost her balance. she landed on her left hip and then fell against the wall and slid down. reports that it wasn't a very hard fall and that she didn't loose consciousness. she is not on blood thinner. Related Data Home Medications ?Medication ?Instructions ?Recorded ?Confirmed atorvastatin 10 mg tablet 10 mg PO QPM 07/01/23 05/29/24 calcium carbonate (Calcium 600) 1,200 mg PO DAILY 07/01/23 05/29/24 cholecalciferol (vitamin D3) 50 50 mcg PO DAILY 07/01/23 05/29/24 mcg (2,000 unit) tablet (D3 DOTS) ferrous sulfate 325 mg (65 mg 325 mg PO DAILY 05/09/24 05/29/24 iron) tablet (FeroSul) food supplemt, lactose-reduced 250 ml PO BID 05/09/24 05/29/24 0.08 gram-1.5 kcal/mL oral liquid (Ensure Enlive) levothyroxine 50 mcg tablet 75 mcg PO DAILY 05/09/24 05/29/24 omeprazole 40 mg capsule,delayed 40 mg PO DAILY 05/09/24 05/29/24 release ipratropium 0.5 mg-albuterol 3 mg 3 ml inhalation 4XD PRN 05/20/24 05/29/24 (2.5 mg base)/3 mL nebulization soln Allergies Allergy/AdvReac Type Severity Reaction Status Date / Time No Known Allergies Allergy Unverified 05/29/24 14:32 General Stated Complaint: Fall/Non TraumaCriteria KRISTIN: 3 Exam Narrative Exam Narrative: Review of Systems: All systems reviewed & are unremarkable except as noted in HPI and below cachectic, no acute distress small bruise noted over left presybeterian, no head trauma no c spine tenderness, full ROM Unlabored respiratory effort, CTAB Nondistended abdomen , soft non tender Extremities w/o deformity or tenderness pelvis stable, non tender no midline back tenderness no focal neurologic deficits, 5/5 strength bilateral LE Course Vital Signs Vital signs: Vital Signs Temperature 36.4 C 05/29/24 14:26 Pulse 76 05/29/24 14:26 Respiratory Rate 16 05/29/24 14:26 Blood Pressure 166/80 H 05/29/24 14:26 Pulse Oximetry 96 05/29/24 14:26 Temperature 36.4 C 05/29/24 14:26 Pulse 76 05/29/24 14:26 Respiratory Rate 16 05/29/24 14:26 Respiratory Effort Normal 05/29/24 14:32 Blood Pressure 166/80 H 05/29/24 14:26 Pulse Oximetry 96 05/29/24 14:26 Pain Level 5 05/29/24 14:26 Medical Decision Making emergent evaluation after a fall. fall was mechanical and unlikely to be syncope, vasovagal episode or malignant dysrythmia. minimal injury appreciated and patient has no complaints. she has non tender pelvis and is able to high kick impressively. i doubt pelvis injury. given age with get head CT. 1455 just prior to imaging, patient has started vomiting. will give ODT and proceed with imaging. 1546 Discussed imaging with radiologist, there are no acute findings. The patient was observed in the emergency department and reports resolution of any nausea. Her bruise on the face is slightly getting worse and recommend some ice pack to that area. a gait trial was performed and the patient basically ran in the emergency department. At this time I feel she is stable for discharge home. Continued Motrin and Tylenol as needed for any soreness. Follow-up with PCP as needed. Quality:SDOH Health Related Social Needs: No Data to Display PFSH All Active Problems (Updated 05/29/24 @ 15:48 by Kath Elizabeth MD) CHI (closed head injury) (Acute) Fall (Acute) Abdominal pain (Acute) Anemia (Chronic ~04/19/24) Unsteady gait (Acute) Advanced care planning/counseling discussion (Acute) Palliative care patient (Acute) Underweight (Acute) Mild cognitive impairment with memory loss (Acute) Bronchiectasis (Acute) [facility], last eval 05/2023 Hypothyroid (Chronic) CAP (community acquired pneumonia) (Acute) Medical History COPD (chronic obstructive pulmonary disease) Hypercholesterolemia Surgical History S/P tonsillectomy Social History Smoking/Tobacco Use Status: Never Smoking risk assessment performed?: Yes Alcohol Intake: never Drug use: Never Substance use type: does not use Housing: house Do you feel safe at home: Yes Do you feel safe in your relationship?: Yes
--- NOTE | 2024-05-29 15:10 | DI.CT_ITS ---
Exam(s) CT HEAD CERVICAL SPINE WO EXAM: CT HEAD CERVICAL SPINE WO CLINICAL HISTORY: fall. TECHNIQUE: Imaging Protocol: Axial computed tomography images with coronal and sagittal reformatted images were created and reviewed COMPARISON: CR XR CHEST 2V PA LATERAL from 06/30/2023 FINDINGS: BRAIN: There are no skull fractures nor fluid in the visualized paranasal sinuses. There is no evidence of intracranial hemorrhage, mass effect, or shift of midline structures. There are no extra-axial fluid collections. The ventricles are not enlarged or shifted and there is no blo od within the ventricular system nor within the basal cisterns. There is a moderate amount of bilateral symmetrical periventricular hypodensity consistent with chron ic small vessel disease. CERVICAL SPINE: There is no evidence of fracture nor listhesis. No significant prevertebral soft tissue swelling. Multilevel advanced chronic this narrowing at each level in the cervical spine. There is mild degene rative anterolisthesis of C4 upon C5. There is multilevel facet arthropathy. There is no significant facet joint malalignment. No significant osseous lesions evident. Incidentally noted is infiltrate in the upper lobes, more so on the left side. IMPRESSION: No acute intracranial findings on this noninfused CT scan of the brain. No evidence of cervical spine fracture, malalignment, nor acute compromise of the cervical spinal can al. However, multilevel chronic degenerative disc disease and facet arthropathy most levels evident. Infiltrate is noted in the visualized bilateral lung apices, more on the left than right side Report called by myself to ER physician 05/29/2024 3:30 p.m. RADIATION DOSE DELIVERED: Total DLP DATA REPOSITORY: All CT scans at this facility are submitted to the National Radiology Data Registry (NRDR) Dose Index Registry (DIR) with the [employer] ([employer]). RADIATION OPTIMIZATION: All CT scans at this facility use at least one of these dose optimization te chniques: automated exposure control; mA and/or kV adjustment per patient size (includes targeted exa ms where dose is matched to clinical indication); or iterative reconstruction.
[2024-05-29] MEDS: Ondansetron O.D.T. 4 MG TABEF (15:39)
== END 2024-05-29 15:57 | disposition home or self-care (01) ==
PROVIDERS: Emergency Provider Emergency Medicine; PCP Student in an Organized Health Care Education/Training Program
DX: S09.8XXA Other specified injuries of head, initial encounter (principal); W01.190A Fall on same level from slipping, tripping and stumbling with subsequent striking against furniture, initial encounter; Y92.238 Other place in hospital as the place of occurrence of the external cause
CPT/HCPCS: 96365; 99284; 70450; 72125; 99283; J1756

== ENCOUNTER 2024-06-05 03:06 | Outpatient (RCR) | payer MEDICARE, SELFPAY ==
[2024-05-22] MEDS: IRON SUCROSE COMPLEX 200 MG in Normal Saline 100 ML 440 MG IVPB (12:38)
[2024-05-22] MEDS: Normal Saline Flush 10 ML SYR IVP (12:38)
[2024-05-29] MEDS: Normal Saline Flush 10 ML SYR IVP (13:02)
[2024-05-29] MEDS: IRON SUCROSE COMPLEX 200 MG in Normal Saline 100 ML 440 MG IVPB (13:14)
[2024-05-29 13:40] VITALS: BP 195/92; PULSE 72; RESP 16; O2SAT 96
[2024-05-29 13:50] VITALS: BP 158/84; PULSE 72; RESP 17; O2SAT 98
[2024-05-29 14:03] VITALS: BP 176/81; PULSE 75; RESP 16; TEMP 36.2; O2SAT 95
[2024-06-05] MEDS: IRON SUCROSE COMPLEX 200 MG in Normal Saline 100 ML 440 MG IVPB (12:57)
[2024-06-05] MEDS: Normal Saline Flush 10 ML SYR IVP (12:57)
== END 2024-06-13 23:59 | disposition home or self-care (01) ==
LOC: INF 03:06
PROVIDERS: PCP Student in an Organized Health Care Education/Training Program; Visit Provider Surgery
DX: D50.9 Iron deficiency anemia, unspecified
CPT/HCPCS: 96365; J1756

== ENCOUNTER → 2024-06-25 13:12 | Outpatient (BNVA) | payer MEDICARE, SELFPAY | PROVIDERS: PCP Student in an Organized Health Care Education/Training Program; Referring Provider Student in an Organized Health Care Education/Training Program; Visit Provider Nurse Practitioner Adult Health | DX: F03.90 Unspecified dementia, unspecified severity, without behavioral disturbance, psychotic disturbance, mood disturbance, and anxiety (principal) | CPT/HCPCS: 99215 ==

== ENCOUNTER 2024-08-13 16:07 | Inpatient (IN) | payer MEDICARE, SELFPAY ==
[2024-08-13] VITALS (50 sets, daily range): BP systolic 107–168; BP diastolic 55–85; PULSE 85–122; RESP 16–32; TEMP 36.5–38.1; O2SAT 93–98
--- NOTE | 2024-08-13 16:15 | RT.EKG_ITS ---
APPROVED REPORT Exam: Resting ECG Reason for Exam: Fall Patient Location: E HR:111 bpm ECG Measurements Heart Rate 111 AXIS MI 157 P 82 QRSd 92 QRS -12 QT 298 T 75 QTc 406 Conclusion Sinus tachycardia...rate> 99
--- NOTE | 2024-08-13 16:15 | DI.RAD_ITS ---
Exam(s) XR PELVIS AP XR FEMUR RT EXAM: XR PELVIS AP CLINICAL HISTORY: Fall, Right hip pain. TECHNIQUE: 2D digital imaging was performed. Single AP view of the pelvis. AP and lateral views of the femur. COMPARISON: CR XR FEMUR RT from 08/13/2024 FINDINGS: BONES: No acute fracture is present. No bony destructive lesion is seen. Severe degenerative change s are noted in the lower lumbar spine. JOINTS: No dislocation present. Mild degenerative changes of both hips and SI joints. The knee is u nremarkable. SOFT TISSUE: Vascular calcifications. IMPRESSION: No acute abnormality. DATA REPOSITORY: RADIATION DOSE DELIVERED:
--- NOTE | 2024-08-13 16:15 | DI.RAD_ITS ---
Exam(s) XR CHEST 2V PA LATERAL EXAM: XR CHEST 2V PA LATERAL CLINICAL HISTORY: Fall TECHNIQUE: 2D digital imaging was performed. Two views. COMPARISON: CR XR CHEST 2V PA LATERAL from 06/30/2023 FINDINGS: The AP views limited by rotation. HEART: Normal size. Aorta: Not dilated. PULMONARY VASCULATURE: Normal. MEDIASTINUM: Unremarkable. LUNGS: Severe underlying emphysematous and fibrotic changes. Similar atelectasis versus scarring in the anterior lung seen on the lateral view. New dense infiltrate seen in the posterior right upper l obe. Increased densities also noted at the right lower lobe. Similar scarring and pleural thickenin g at the left lung apex. Other areas of scarring or infiltrate in the left mid lung. PLEURAL SPACE: No pleural effusion or pneumothorax. BONE:Unremarkable for age. SOFT TISSUES: Unremarkable. IMPRESSION: Area of consolidation in the posterior right upper lobe. Other questionable areas of pneumonia in th e left upper and right lower lobes. DATA REPOSITORY: RADIATION DOSE DELIVERED:
--- NOTE | 2024-08-13 16:25 | W.ED.GENAD ---
Discharge Plan Disposition Patient Disposition: Admit to [facility] Condition: Stable Discharge Details Clinical Impression: Pneumonia Primary Care Provider: Sean Henderson ED Provider: Lakeshia Gallardo Home Meds and New Rx's Prescriptions: No Action levothyroxine 50 mcg tablet 75 mcg PO DAILY Patient Comments: TAKE 1 TABLET BY MOUTH ONCE DAILY Ensure Enlive 0.08 gram-1.5 kcal/mL liquid 250 ml PO BID ferrous sulfate [FeroSul] 325 mg (65 mg iron) tablet 325 mg PO DAILY omeprazole 40 mg capsule,delayed release(DR/EC) 40 mg PO DAILY atorvastatin 10 mg tablet 10 mg PO QPM Patient Comments: TAKE 1 TABLET BY MOUTH AT BEDTIME cholecalciferol (vitamin D3) [D3 DOTS] 50 mcg (2,000 unit) tablet 50 mcg PO DAILY calcium carbonate [Calcium 600] 600 mg calcium (1,500 mg) tablet 1,200 mg PO DAILY ipratropium-albuterol 0.5 mg-3 mg(2.5 mg base)/3 mL solution for nebulization 3 ml INHALATION 4XD PRN Patient Comments: USE 1 AMPULE IN NEBULIZER 4 TIMES DAILY HPI General Mode of arrival: wheelchair. Date/Time Provider Initiated Documentation: 08/13/24 16:22. Limitations to Documentation: no limitations and altered mental status (Somewhat limited memory of the event). Information obtained by: patient, family (Brother), RN notes reviewed and old records reviewed. HPI Narrative: 84-year-old female presents to the ER accompanied by her brother who found her 7:00 this morning on her knees by her bed. Patient states she fell out of bed but cannot give details about the event. She does not think she hit her head. Is not complaining of headache or neck pain. She is complaining of right hip and femur pain and right ankle pain. No obvious deformity noted. She is quite thin. She usually uses a walker at home. Past medical history includes hypothyroidism, high cholesterol, chronic anemia, gait instability inability to gain weight and GERD., COPD. She does have a history of dementia. She has not been unable to stand on her leg since the fall. The brother reports that she has been more weak today. She did have Tylenol this morning. Related Data Home Medications ?Medication ?Instructions ?Recorded ?Confirmed atorvastatin 10 mg tablet 10 mg PO QPM 07/01/23 08/13/24 calcium carbonate (Calcium 600) 1,200 mg PO DAILY 07/01/23 08/13/24 cholecalciferol (vitamin D3) 50 50 mcg PO DAILY 07/01/23 08/13/24 mcg (2,000 unit) tablet (D3 DOTS) ferrous sulfate 325 mg (65 mg 325 mg PO DAILY 05/09/24 08/13/24 iron) tablet (FeroSul) food supplemt, lactose-reduced 250 ml PO BID 05/09/24 08/13/24 0.08 gram-1.5 kcal/mL oral liquid (Ensure Enlive) levothyroxine 50 mcg tablet 75 mcg PO DAILY 05/09/24 08/13/24 omeprazole 40 mg capsule,delayed 40 mg PO DAILY 05/09/24 08/13/24 release ipratropium 0.5 mg-albuterol 3 mg 3 ml inhalation 4XD PRN 05/20/24 08/13/24 (2.5 mg base)/3 mL nebulization soln Allergies Allergy/AdvReac Type Severity Reaction Status Date / Time No Known Allergies Allergy Unverified 08/13/24 17:11 General Stated Complaint: Orthopedic KRISTIN: 3 Review of Systems All systems reviewed & are unremarkable except as noted in HPI and below Constitutional Constitutional: Reports as per HPI and Reports weakness Musculoskeletal Musculoskeletal: Reports as per HPI Neurologic Neurologic: Reports weakness Exam Narrative Exam Narrative: General: Appears very thin, slightly confused, Awake and conversant. Skin: Warm and Dry HEENT: Head: No palpable deformities, Normocephalic Eyes: Pupils PERRLA, EOM's intact. No periorbital eccymosis or step off Ears: Canal patent. Tympanic membranes are clear . No norton's sign, no hemptympanum. Nose/Face: Atraumatic. Facial bones nontender to palpation and stable with manipulation. Mouth/Throat: No intraoral trauma. Teeth and mandible are intact. Neck: No midline tenderness, no step off, no deformity to palpation of C-spine. Trachea midline. Chest: No surface trauma. Nontender without crepitus or deformity. Lungs clear to ausculatation bilaterally. Heart: RRR, no rubs, murmurs or gallop. Abdomen: No abrasions, ecchymosis, or surface trauma. Nondistended. Nontender to palpation no guarding, rebound, or rigidity. Pelvis: Tender with palpation to right hip and femur and right ankle femoral pulses strong and equal Extremities: no surface trauma. Sensation intact. Peripheral pulses intact and equal. Neuro: ANO x2, GCS 15, cranial nerves II through XII intact. Motor and sensory exam nonfocal. Reflexes are symmetric. Course Vital Signs Vital signs: Vital Signs Temperature 37.0 C 08/13/24 16:10 Pulse 118 H 08/13/24 16:10 Respiratory Rate 18 08/13/24 16:10 Blood Pressure 164/82 H 08/13/24 16:10 Pulse Oximetry 95 08/13/24 16:10 Temperature 37.0 C 08/13/24 16:10 Pulse 118 H 08/13/24 16:10 Respiratory Rate 18 08/13/24 16:10 Blood Pressure 164/82 H 08/13/24 16:10 Pulse Oximetry 95 08/13/24 16:10 Medical Decision Making 84-year-old female presents to the ER accompanied by her brother who found her 7:00 this morning on her knees by her bed. Patient states she fell out of bed but cannot give details about the event. She does not think she hit her head. Is not complaining of headache or neck pain. She is complaining of right hip and femur pain and right ankle pain. No obvious deformity noted. She is quite thin. She usually uses a walker at home. Past medical history includes hypothyroidism, high cholesterol, chronic anemia, gait instability inability to gain weight and GERD., COPD. She does have a history of dementia. She has not been unable to stand on her leg since the fall. The brother reports that she has been more weak today. She did have Tylenol this morning. Workup ordered including CBC CMP TSH UA chest x-ray hip and pelvis and femur x-ray and ankle x-ray. Informed by ED staff that temperature is 100.5 blood cultures added on lactate added on patient also has dry mucous membranes. Will consider IV fluids or p.o. fluids. Will give a liter of normal saline and 650 mg IV acetaminophen, at this time pending further workup patient is meeting SIRS criteria. She is tachycardic tachypneic febrile with a temperature. Lactate is within normal limits at 1.2 CBC shows a white blood cell count of 17.48, absolute neutrophils 16.27, sodium and potassium within normal limits BUN 25 creatinine 1.1 GFR is 50 glucose 115 magnesium 1.6 alk phos 131 albumin 2.9 TSH within normal limits, negative flu COVID and RSV. X-rays show possible right upper quadrant pneumonia and multilobular left side pneumonia. Urinalysis is pending at this time. I will initiate antibiotics and consult with hospitalist as patient has fallen twice in the last 2 days, fever and weakness also with history of dementia and confusion.. Offered admission discussed with brother who is primary caregiver and patient he agrees that admission would probably be safest for the patient at this time. I did discuss lab and x-ray results with them they verbalized understanding. Most recent temperature is 99. 1903: Hospitalist paged. 192: Spoke with Dr. Taylor who agrees to accept patient for admission, patient and family aware of plan of care. This text was generated using [employer] system, please disregard any oddities of phrase or misspellings. Medical Records Medical records reviewed: Yes I reviewed the patient's medical records. Imaging Data Radiologic Study: Imaging: X-Ray Radiologist's impression: COMPARISON: CR XR CHEST 2V PA LATERAL from 06/30/2023 FINDINGS: The AP views limited by rotation. HEART: Normal size. Aorta: Not dilated. PULMONARY VASCULATURE: Normal. MEDIASTINUM: Unremarkable. LUNGS: Severe underlying emphysematous and fibrotic changes. Similar atelectasis versus scarring in the anterior lung seen on the lateral view. New dense infiltrate seen in the posterior right upper lobe. Increased densities also noted at the right lower lobe. Similar scarring and pleural thickening at the left lung apex. Other areas of scarring or infiltrate in the left mid lung. PLEURAL SPACE: No pleural effusion or pneumothorax. BONE:Unremarkable for age. SOFT TISSUES: Unremarkable. IMPRESSION: Area of consolidation in the posterior right upper lobe. Other questionable areas of pneumonia in the left upper and right lower lobes. Lab Data Lab results reviewed: Yes I reviewed the patient's lab results. Labs: 08/13/24 16:54 Blood Blood Culture - Pending 08/13/24 16:44 Blood Blood Culture - Pending Laboratory Tests Range/Units 08/13/24 08/13/24 16:35 16:44 WBC (4.4-10.8) 10^3/uL 17.48 H RBC (3.93-5.22) 10^6/uL 4.19 Hgb (11.2-15.7) g/dL 12.2 Hct (36.0-46.0) % 38.6 MCV (80-95) fL 92 MCH (27.0-33.0) pg 29.1 MCHC (32.0-36.0) % 31.6 L RDW (11.7-14.6) % 16.1 H Plt Count (130-400) 10^3/uL 211 MPV (8.0-11.0) fL 9.7 Immature Gran % % 0.4 Neutrophils % % 93.1 Lymphocytes % % 2.2 Monocytes % % 3.9 Eosinophils % % 0.1 Basophils % % 0.3 Nucleated RBC % (0.0-0.3) % 0.0 Absolute Neutrophils (1.2-6.7) 10^3/uL 16.27 H Absolute Lymphocytes (1.2-3.4) 10^3/uL 0.38 L Absolute Monocytes (0.1-0.8) 10^3/uL 0.68 Absolute Eosinophils (0.0-0.7) 10^3/uL 0.02 Absolute Basophils (0.0-0.2) 10^3/uL 0.05 VBG Lactate (0.6-1.4) mmol/L 1.2 Sodium (136-145) mmol/L 136 Potassium (3.5-5.1) mmol/L 4.0 Chloride (98-107) mmol/L 98 Carbon Dioxide (21.0-32.0) mmol/L 32.5 H Anion Gap (3-11) mmol/L 5.5 BUN (7-18) mg/dL 25 H Creatinine (0.55-1.02) mg/dL 1.1 H Est GFR (CKD-EPI 2020) (mL/min/1.73m2) 50.17 Glucose (74-106) mg/dL 115 H Calcium (8.5-10.1) mg/dL 9.3 Magnesium (1.8-2.4) mg/dL 1.6 L Total Bilirubin (0.2-1.0) mg/dL 0.61 AST (15-37) U/L 21 ALT (14-59) U/L 16 Alkaline Phosphatase (46-116) U/L 131 H Troponin I (<or=51) ng/L 17 Total Protein (6.4-8.2) g/dL 8.5 H Albumin (3.4-5.0) g/dL 2.9 L TSH (0.36-3.74) uIU/mL 0.58 COVID-19 Source NASOPHARYNX SARS-CoV-2 (PCR) (Negative) Negative Influenza Type A (PCR) (Negative) Negative Influenza Type B (PCR) (Negative) Negative RSV (PCR) (Negative) Negative Quality:SDOH Health Related Social Needs: No Data to Display PFSH All Active Problems Hypomagnesemia (Acute) SASKIA (obstructive sleep apnea) (Chronic) Acute right hip pain (Acute) Pneumonia (Acute) Dementia (Chronic) Anemia (Chronic ~04/19/24) Unsteady gait (Chronic) Advanced care planning/counseling discussion (Acute) Palliative care patient (Acute) Underweight (Acute) Mild cognitive impairment with memory loss (Acute) Bronchiectasis (Acute) [facility] Pulmonary, last eval 05/2023 Hypothyroid (Chronic) CAP (community acquired pneumonia) (Acute) Medical History COPD (chronic obstructive pulmonary disease) Hypercholesterolemia Surgical History S/P tonsillectomy Social History Smoking/Tobacco Use Status: Never Smoking risk assessment performed?: Yes Alcohol Intake: never Drug use: Never Substance use type: does not use Housing: house Do you feel safe at home: Yes Do you feel safe in your relationship?: Yes
[2024-08-13 16:50] LABS: Lactate 1.2 mmol/L (0.6-1.4)
[2024-08-13 16:53] LABS: Abs Immature Grans 0.07 10^3/uL (0.0-0.06); Absolute Basophil Count 0.05 10^3/uL (0.0-0.2); Absolute Neutrophil Count 16.27 10^3/uL (1.2-6.7); Basophils % 0.3 %; Eosinophils % 0.1 %; HCT 38.6 % (36.0-46.0); HGB 12.2 g/dL (11.2-15.7); Immature Grans % 0.4 %; Lymphocytes % 2.2 %; MCH 29.1 pg (27.0-33.0); MCHC 31.6 % (32.0-36.0); MCV 92 fL (80-95); MPV 9.7 fL (8.0-11.0); Monocytes % 3.9 %; Neutrophils % 93.1 %; Platelet Count 211 10^3/uL (130-400); RBC 4.19 10^6/uL (3.93-5.22); RDW 16.1 % (11.7-14.6); RDW-SD 54.8 fL; WBC 17.48 10^3/uL (4.4-10.8)
[2024-08-13 16:55] LABS: Absolute Eosinophil Count 0.02 10^3/uL (0.0-0.7); Absolute Lymphocyte Count 0.38 10^3/uL (1.2-3.4); Absolute Monocyte Count 0.68 10^3/uL (0.1-0.8)
[2024-08-13] MEDS: ACETAMINOPHEN 650 MG/65 ML BAG 260 MG IVPB (16:58)
[2024-08-13] MEDS: Normal Saline 500 ML 1000 ML IV (16:59)
[2024-08-13 17:16] LABS: ALT 16 U/L (14-59); AST 21 U/L (15-37); Albumin 2.9 g/dL (3.4-5.0); Alkaline Phosphatase 131 U/L (46-116); Anion Gap 5.5 mmol/L (3-11); BUN 25 mg/dL (7-18); Bilirubin, Total 0.61 mg/dL (0.2-1.0); CO2 32.5 mmol/L (21.0-32.0); CREATININE 1.1 mg/dL (0.55-1.02); Calcium 9.3 mg/dL (8.5-10.1); Chloride 98 mmol/L (98-107); Estimated GFR 50.17 (mL/min/1.73m2); Glucose 115 mg/dL (74-106); Magnesium 1.6 mg/dL (1.8-2.4); Sodium 136 mmol/L (136-145); TSH (W/Ref FT4) 0.58 uIU/mL (0.36-3.74); Total Protein 8.5 g/dL (6.4-8.2); Troponin I 17 ng/L (<or=51)
[2024-08-13 17:29] LABS: COVID-19 PCR Negative (Negative); Influenza A PCR Negative (Negative); Influenza B PCR Negative (Negative); RSV PCR Negative (Negative)
[2024-08-13 17:30] LABS: Source NASOPHARYNX
--- NOTE | 2024-08-13 17:54 | DI.RAD_ITS ---
Exam(s) XR ANKLE RT COMPLETE EXAM: XR ANKLE RT COMPLETE CLINICAL HISTORY: Fall, pain. TECHNIQUE: 2D digital imaging was performed. Three views. COMPARISON: No exams were available for comparison FINDINGS: BONES: No acute fracture is present. No bony destructive lesion is seen. JOINTS: The ankle mortise is normally aligned. SOFT TISSUE: Normal. IMPRESSION: Unremarkable radiographs of the right ankle. DATA REPOSITORY: RADIATION DOSE DELIVERED:
[2024-08-13] MEDS: DOXYCYCLINE 100 MG in Normal Saline 100 ML IVPB (18:45)
[2024-08-13] MEDS: cefTRIAXone 1 GM/50 ML BAG IVPB (18:45)
[2024-08-13 18:55] LABS: Troponin I 22 ng/L (<or=51)
[2024-08-13 19:23] LABS: Bilirubin Negative (Negative); Blood Negative (Negative); Clarity Clear (Clear); Glucose Negative (Negative); Ketones Negative (Negative); Leukocyte Esterase Negative (Negative); Nitrite Negative (Negative); Urobilinogen 0.2 mg/dL (Up to 0.2); pH 6.5 (5-8)
--- NOTE | 2024-08-13 19:23 | W.PM.HP.N ---
Date of service: 08/13/24 Time of Service: 19:23 Assessment and Plan Assessment and plan (1) CAP (community acquired pneumonia): Start date: 08/13/24 Status: Acute Assessment and plan: This is an 84-year-old lady with progressive dementia and weight loss with her dementia having increased weakness and increased falls recently. She had right hip pain which is negative for any acute fractures but will be followed closely. She was found to have a rather prominent right upper lobe pneumonia which is new this will be treated aggressively with IV antibiotic therapy. Ceftriaxone and Zithromax have been initiated. She is not hypoxic. Aggressive nebulizer treatments for her underlying COPD with emphysema and pulmonary fibrosis. She remains a full code and this should be reviewed with her progressive disease and severe lung disease as a baseline. Palliative care consultation has been sought in the past. (2) COPD (chronic obstructive pulmonary disease): Assessment and plan: Continue aggressive nebulizer treatments while patient is being treated for pneumonia. (3) Hypomagnesemia: Start date: 08/13/24 Status: Acute Assessment and plan: Most likely nutritional deficit with repletion IV while hospitalized. (4) Acute right hip pain: Start date: 08/13/24 Status: Acute Assessment and plan: Patient did fall but has no acute fracture by imaging. If PT is not making progress and if pain persist, consider CT of the hip and pelvis reviewing for occult fracture. (5) Unsteady gait: Status: Chronic Assessment and plan: Patient does have arthritis and uses a walker and/or cane at home but did fall and is falling more frequently with increased weakness at home. Consider increase services at discharge. CODE STATUS needs to be reviewed. (6) Dementia: Status: Chronic Assessment and plan: Patient does have some memory deficits but is not on medication for behavioral abnormalities. She has become cachectic and is malnourished which may be part of this disease. Continue nutritional supplements as tolerated. (7) Hypothyroid: Status: Chronic Assessment and plan: Continue outpatient medical therapy. TSH was normal. History of Present Illness History of Present Illness Chief Complaint: Fall at home the morning of admission with right hip pain Narrative: This is an 84-year-old female patient who lives with her brother and was found by her brother at her bedside on her knees and then she had fallen and could not bear weight on her right leg. Patient was brought to the ED for evaluation and by imaging was found to have no fractures but an acute right upper posterior lobe pneumonia with chronic severe emphysematous and pulmonary fibrosis changes with chronic COPD on no oxygen at home. She has a history of using a nebulizer at home but no other breathing treatments and no history of prolonged smoking though [place] and her father smoked. She was not hypoxic in the ED but did have a fever and this responded to Tylenol. She does not have any complaints of cough or shortness of breath and had negative screening for flu/RSV/COVID. Her WBC was elevated around 17,000, creatinine was slightly elevated from baseline and she had a low magnesium of 1.6. Magnesium will be repleted IV and she was on gentle IV hydration. She was weak compared to her baseline according to the brother. Vital signs did reveal tachycardia initially which resolved but no tachypnea and her fever did resolve with Tylenol as mentioned. Patient will be admitted for PT evaluation for safety and weightbearing of the right lower extremity which has arthritic changes but no acute fractures. Patient does use a walker and/or cane at home. If hip pain persists consider CT of the hip. She also will be treated with gentle IV hydration with follow-up labs and IV ceftriaxone and a Zithromax for her pneumonia. She is not requiring oxygen supplementation. She is a full code. Review of Systems Narrative: 13 point review of systems otherwise unrevealing or stable per patient and brother. PFSH All Active Problems Hypomagnesemia (Acute) SASKIA (obstructive sleep apnea) (Chronic) Acute right hip pain (Acute) Pneumonia (Acute) Dementia (Chronic) Anemia (Chronic ~04/19/24) Unsteady gait (Chronic) Advanced care planning/counseling discussion (Acute) Palliative care patient (Acute) Underweight (Acute) Mild cognitive impairment with memory loss (Acute) Bronchiectasis (Acute) [facility], last eval 05/2023 Hypothyroid (Chronic) CAP (community acquired pneumonia) (Acute) Medical History COPD (chronic obstructive pulmonary disease) Hypercholesterolemia Surgical History S/P tonsillectomy Social History Smoking/Tobacco Use Status: Never Smoking risk assessment performed?: Yes Alcohol Intake: never Drug use: Never Substance use type: does not use Housing: house Do you feel safe at home: Yes Do you feel safe in your relationship?: Yes Meds Allergies and Home Medications Allergies Allergy/AdvReac Type Severity Reaction Status Date / Time No Known Allergies Allergy Unverified 08/13/24 17:11 Home Medications ?Medication ?Instructions ?Recorded ?Confirmed ?Type atorvastatin 10 mg tablet 10 mg PO QPM 07/01/23 08/13/24 History calcium carbonate (Calcium 600) 1,200 mg PO DAILY 07/01/23 08/13/24 History cholecalciferol (vitamin D3) 50 50 mcg PO DAILY 07/01/23 08/13/24 History mcg (2,000 unit) tablet (D3 DOTS) ferrous sulfate 325 mg (65 mg 325 mg PO DAILY 05/09/24 08/13/24 History iron) tablet (FeroSul) food supplemt, lactose-reduced 250 ml PO BID 05/09/24 08/13/24 History 0.08 gram-1.5 kcal/mL oral liquid (Ensure Enlive) levothyroxine 50 mcg tablet 75 mcg PO DAILY 05/09/24 08/13/24 History omeprazole 40 mg capsule,delayed 40 mg PO DAILY 05/09/24 08/13/24 History release ipratropium 0.5 mg-albuterol 3 mg 3 ml inhalation 4XD PRN 05/20/24 08/13/24 History (2.5 mg base)/3 mL nebulization soln Exam Narrative Exam Narrative: General: Thin and frail appearing in no acute distress, good eye contact and normal speech but decreased memory of recent events. Alert and oriented at least to person and place. HEENT: Normocephalic with coarsened facial features, eyes with pupils equal and react to light specially, extraocular movement intact and sclera anicteric. Oropharynx with slightly dry mucosa and poor dentition with missing broken teeth. No acute trauma apparent. Neck: Supple without JVD. Back: Kyphotic without CVA tenderness. Lungs: Inspiratory coarse crackles left more than right but no focalizing, fair aeration and bronchovesicular breath sounds diffusely without expiratory wheeze. Breast: Exam deferred. Heart: Tachycardic rate, regular rhythm with 4/6 pansystolic murmur over left sternum. No gallop or rub. Abdomen: Scaphoid contour, soft nontender to palpation with no palpable hepatosplenomegaly. No focalizing guarding or rebound. Bowel sounds positive all quadrants. Genitalia/rectal: Exam deferred. Extremities: Nonpitting edema lower extremities with no obvious bruising or trauma to lower extremities, no clubbing or cyanosis. Hip is tender to rotational movements but has full rotational movement without restriction. Minimal tenderness to palpation with hip, no knee or ankle tenderness. Peripheral pulses intact. Skin: Normal color, warm and dry. Neuro: Cranial nerves II through XII gross intact, no focalized motor deficits and no tremor. Psych: Normal affect blunted depressed mood. No abnormal thought processes. Remote memory intact and recent memory less intact. Results Imaging Imaging Studies: EXAM: XR CHEST 2V PA LATERAL CLINICAL HISTORY: Fall TECHNIQUE: 2D digital imaging was performed. Two views. COMPARISON: CR XR CHEST 2V PA LATERAL from 06/30/2023 FINDINGS: The AP views limited by rotation. HEART: Normal size. Aorta: Not dilated. PULMONARY VASCULATURE: Normal. MEDIASTINUM: Unremarkable. LUNGS: Severe underlying emphysematous and fibrotic changes. Similar atelectasis versus scarring in the anterior lung seen on the lateral view. New dense infiltrate seen in the posterior right upper lobe. Increased densities also noted at the right lower lobe. Similar scarring and pleural thickening at the left lung apex. Other areas of scarring or infiltrate in the left mid lung. PLEURAL SPACE: No pleural effusion or pneumothorax. BONE:Unremarkable for age. SOFT TISSUES: Unremarkable. IMPRESSION: Area of consolidation in the posterior right upper lobe. Other questionable areas of pneumonia in the left upper and right lower lobes. EXAM: XR PELVIS AP CLINICAL HISTORY: Fall, Right hip pain. TECHNIQUE: 2D digital imaging was performed. Single AP view of the pelvis. AP and lateral views of the femur. COMPARISON: CR XR FEMUR RT from 08/13/2024 FINDINGS: BONES: No acute fracture is present. No bony destructive lesion is seen. Severe degenerative changes are noted in the lower lumbar spine. JOINTS: No dislocation present. Mild degenerative changes of both hips and SI joints. The knee is unremarkable. SOFT TISSUE: Vascular calcifications. IMPRESSION: No acute abnormality. Exam(s) XR PELVIS AP XR FEMUR RT EXAM: XR PELVIS AP CLINICAL HISTORY: Fall, Right hip pain. TECHNIQUE: 2D digital imaging was performed. Single AP view of the pelvis. AP and lateral views of the femur. COMPARISON: CR XR FEMUR RT from 08/13/2024 FINDINGS: BONES: No acute fracture is present. No bony destructive lesion is seen. Severe degenerative changes are noted in the lower lumbar spine. JOINTS: No dislocation present. Mild degenerative changes of both hips and SI joints. The knee is unremarkable. SOFT TISSUE: Vascular calcifications. IMPRESSION: No acute abnormality. EXAM: XR ANKLE RT COMPLETE CLINICAL HISTORY: Fall, pain. TECHNIQUE: 2D digital imaging was performed. Three views. COMPARISON: No exams were available for comparison FINDINGS: BONES: No acute fracture is present. No bony destructive lesion is seen. JOINTS: The ankle mortise is normally aligned. SOFT TISSUE: Normal. IMPRESSION: Unremarkable radiographs of the right ankle. Labs 08/13/24 16:44 08/13/24 16:44 Labs: Laboratory Results - last 24 hr 08/13/24 08/13/24 08/13/24 16:35 16:44 18:34 WBC 17.48 H RBC 4.19 Hgb 12.2 Hct 38.6 MCV 92 MCH 29.1 MCHC 31.6 L RDW 16.1 H Plt Count 211 MPV 9.7 Immature Gran % 0.4 Neutrophils % 93.1 Lymphocytes % 2.2 Monocytes % 3.9 Eosinophils % 0.1 Basophils % 0.3 Nucleated RBC % 0.0 Absolute Neutrophils 16.27 H Absolute Lymphocytes 0.38 L Absolute Monocytes 0.68 Absolute Eosinophils 0.02 Absolute Basophils 0.05 VBG Lactate 1.2 Sodium 136 Potassium 4.0 Chloride 98 Carbon Dioxide 32.5 H Anion Gap 5.5 BUN 25 H Creatinine 1.1 H Est GFR (CKD-EPI 2020) 50.17 Glucose 115 H Calcium 9.3 Magnesium 1.6 L Total Bilirubin 0.61 AST 21 ALT 16 Alkaline Phosphatase 131 H Troponin I 17 22 Total Protein 8.5 H Albumin 2.9 L TSH 0.58 COVID-19 Source NASOPHARYNX SARS-CoV-2 (PCR) Negative Influenza Type A (PCR) Negative Influenza Type B (PCR) Negative RSV (PCR) Negative Last Vital Signs Temp 37.3 C 08/13/24 18:00 Pulse 102 H 08/13/24 17:56 Resp 22 08/13/24 17:56 BP 123/59 L 08/13/24 17:56 Pulse Ox 94 08/13/24 17:56 Time Spent Time spent with Patient: >75 minutes Time was spent: preparing to see the patient(eg.review tests), obtaining and/or reviewing separately otained hiistory, ordering medications,tests, procedures, indepentently interpreting results and care coordination
[2024-08-13 19:35] LABS: Bacteria Negative HPF (Negative); C & S Indicated? No; Crystals Negative HPF (Negative); Epithelial Cells Rare HPF (Negative); Mucus Negative (Negative); RBC 0-2 HPF (0-2); WBC 0-2 HPF (0-5)
[2024-08-13] MEDS: MAGNESIUM SULFATE 2 GM/50 ML BAG IV_INF (21:25)
[2024-08-13] MEDS: Atorvastatin 10 MG TAB PO (21:25)
[2024-08-13] MEDS: Enoxaparin 40 MG/0.4 ML SYR SC (21:25)
[2024-08-13] MEDS: Normal Saline 1,000 ML 100 ML IV (21:56)
--- NOTE | 2024-08-13 22:22 | W.PC.ACHO ---
Registration Status: Primary Language: Preferred Language: ED Information & Data Chief Complaint Orthopedic 08/13/24 16:27 Triage Note right hip pain. fell trying 08/13/24 16:10 to get out of bed today was able to get on knees but unable to get self up Denies hitting head. Also Fell yesterday. Medical / Surgical History (Last Reviewed 08/13/24 @ 20:00 by Venkat Valles) COPD (chronic obstructive pulmonary disease) Hypercholesterolemia (Last Reviewed 08/13/24 @ 20:00 by Venkat Valles) S/P tonsillectomy Most Recent Vital Signs Temperature 36.5 C 08/13/24 21:30 Temperature Source Axillary 08/13/24 18:00 Pulse 88 08/13/24 21:30 Pulse Rhythm Regular 08/13/24 20:49 Pulse 87 08/13/24 20:31 Respiratory Rate 20 08/13/24 21:30 Respiratory Effort Normal, Non-Labored 08/13/24 20:49 Respiratory Depth Normal 08/13/24 20:49 Respiratory Pattern Normal 08/13/24 20:49 Blood Pressure 125/68 08/13/24 21:30 Blood Pressure Mean 81 08/13/24 20:31 Pulse Oximetry 98 08/13/24 21:30 Oxygen Delivery Method Room Air 08/13/24 21:30 Oxygen Flow Rate 0 08/13/24 21:30 Pain Level 6 08/13/24 21:30 Allergies No Known Allergies Allergy (Unverified 08/13/24 17:11) Active Medications Generic Name Dose Route Start Last Admin Trade Name Freq PRN Reason Stop Dose Admin Atorvastatin Calcium 10 mg 08/13/24 20:49 08/13/24 21:25 Atorvastatin 10 Mg Tab PO 10 mg QPM PAULO Administration Enoxaparin Sodium 40 mg 08/13/24 22:00 08/13/24 21:25 Enoxaparin 40 Mg/0.4 Ml Syr SC 40 mg Q24H PAULO Administration Sodium Chloride 1,000 mls @ 100 mls/hr 08/13/24 20:49 08/13/24 21:56 Saline 1000ml Bag IV 100 mls/hr INFUSION PAULO Administration Magnesium Sulfate 2 gm in 50 mls @ 25 mls/hr 08/13/24 20:49 08/13/24 21:25 IV_INF 08/13/24 22:48 25 mls/hr NOW ONE Administration IV IV Catheter Type [Right Peripheral IV Antecubital] IV Catheter Gauge [Right 18 Antecubital] Diet Orders Category Date Time Status Heart Healthy Eating [DIET] Nutrition 08/14/24 Breakfast Ordered Diagnostics 08/13/24 08/13/24 08/13/24 Range/Units 18:34 18:32 16:44 WBC 17.48 H (4.4-10.8) 10^3/uL RBC 4.19 (3.93-5.22) 10^6/uL Hgb 12.2 (11.2-15.7) g/dL Hct 38.6 (36.0-46.0) % MCV 92 (80-95) fL MCH 29.1 (27.0-33.0) pg MCHC 31.6 L (32.0-36.0) % RDW 16.1 H (11.7-14.6) % Plt Count 211 (130-400) 10^3/uL MPV 9.7 (8.0-11.0) fL Immature Gran % 0.4 % Neutrophils % 93.1 % Lymphocytes % 2.2 % Monocytes % 3.9 % Eosinophils % 0.1 % Basophils % 0.3 % Nucleated RBC % 0.0 (0.0-0.3) % Absolute Neutrophils 16.27 H (1.2-6.7) 10^3/uL Absolute Lymphocytes 0.38 L (1.2-3.4) 10^3/uL Absolute Monocytes 0.68 (0.1-0.8) 10^3/uL Absolute Eosinophils 0.02 (0.0-0.7) 10^3/uL Absolute Basophils 0.05 (0.0-0.2) 10^3/uL VBG Lactate 1.2 (0.6-1.4) mmol/L Sodium 136 (136-145) mmol/L Potassium 4.0 (3.5-5.1) mmol/L Chloride 98 (98-107) mmol/L Carbon Dioxide 32.5 H (21.0-32.0) mmol/L Anion Gap 5.5 (3-11) mmol/L BUN 25 H (7-18) mg/dL Creatinine 1.1 H (0.55-1.02) mg/dL Est GFR (CKD-EPI 2020) 50.17 (mL/min/1.73m2) Glucose 115 H (74-106) mg/dL Calcium 9.3 (8.5-10.1) mg/dL Magnesium 1.6 L (1.8-2.4) mg/dL Total Bilirubin 0.61 (0.2-1.0) mg/dL AST 21 (15-37) U/L ALT 16 (14-59) U/L Alkaline Phosphatase 131 H (46-116) U/L Troponin I 22 17 (<or=51) ng/L Total Protein 8.5 H (6.4-8.2) g/dL Albumin 2.9 L (3.4-5.0) g/dL TSH 0.58 (0.36-3.74) uIU/mL Urine Color Yellow (Yellow) Urine Clarity Clear (Clear) Urine pH 6.5 (5-8) Ur Specific [place] 1.020 (1.005-1.025) Urine Protein 100 H (Neg-Trace) mg/dL Urine Ketones Negative (Negative) mg/dL Urine Blood Negative (Negative) Urine Nitrite Negative (Negative) Urine Bilirubin Negative (Negative) Urine Urobilinogen 0.2 (Up to 0.2) mg/dL Ur Leukocyte Esterase Negative (Negative) Urine RBC 0-2 (0-2) HPF Urine WBC 0-2 (0-5) HPF Ur Epithelial Cells Rare (Negative) HPF Urine Crystals Negative (Negative) HPF Urine Bacteria Negative (Negative) HPF Urine Mucus Negative (Negative) Ur Culture Indicated? No Urine Glucose Negative (Negative) mg/dL COVID-19 Source SARS-CoV-2 (PCR) (Negative) Influenza Type A (PCR) (Negative) Influenza Type B (PCR) (Negative) RSV (PCR) (Negative) 08/13/24 Range/Units 16:35 WBC (4.4-10.8) 10^3/uL RBC (3.93-5.22) 10^6/uL Hgb (11.2-15.7) g/dL Hct (36.0-46.0) % MCV (80-95) fL MCH (27.0-33.0) pg MCHC (32.0-36.0) % RDW (11.7-14.6) % Plt Count (130-400) 10^3/uL MPV (8.0-11.0) fL Immature Gran % % Neutrophils % % Lymphocytes % % Monocytes % % Eosinophils % % Basophils % % Nucleated RBC % (0.0-0.3) % Absolute Neutrophils (1.2-6.7) 10^3/uL Absolute Lymphocytes (1.2-3.4) 10^3/uL Absolute Monocytes (0.1-0.8) 10^3/uL Absolute Eosinophils (0.0-0.7) 10^3/uL Absolute Basophils (0.0-0.2) 10^3/uL VBG Lactate (0.6-1.4) mmol/L Sodium (136-145) mmol/L Potassium (3.5-5.1) mmol/L Chloride (98-107) mmol/L Carbon Dioxide (21.0-32.0) mmol/L Anion Gap (3-11) mmol/L BUN (7-18) mg/dL Creatinine (0.55-1.02) mg/dL Est GFR (CKD-EPI 2020) (mL/min/1.73m2) Glucose (74-106) mg/dL Calcium (8.5-10.1) mg/dL Magnesium (1.8-2.4) mg/dL Total Bilirubin (0.2-1.0) mg/dL AST (15-37) U/L ALT (14-59) U/L Alkaline Phosphatase (46-116) U/L Troponin I (<or=51) ng/L Total Protein (6.4-8.2) g/dL Albumin (3.4-5.0) g/dL TSH (0.36-3.74) uIU/mL Urine Color (Yellow) Urine Clarity (Clear) Urine pH (5-8) Ur Specific [place] (1.005-1.025) Urine Protein (Neg-Trace) mg/dL Urine Ketones (Negative) mg/dL Urine Blood (Negative) Urine Nitrite (Negative) Urine Bilirubin (Negative) Urine Urobilinogen (Up to 0.2) mg/dL Ur Leukocyte Esterase (Negative) Urine RBC (0-2) HPF Urine WBC (0-5) HPF Ur Epithelial Cells (Negative) HPF Urine Crystals (Negative) HPF Urine Bacteria (Negative) HPF Urine Mucus (Negative) Ur Culture Indicated? Urine Glucose (Negative) mg/dL COVID-19 Source NASOPHARYNX SARS-CoV-2 (PCR) Negative (Negative) Influenza Type A (PCR) Negative (Negative) Influenza Type B (PCR) Negative (Negative) RSV (PCR) Negative (Negative) 08/13/24 16:54 Blood Culture - Pending Blood 08/13/24 16:44 Blood Culture - Pending Blood Intake and Output - 24 Hour Total 08/13/24 16:07 thru 08/13/24 22:05 Intake Total 715 Output Total 150 Balance 565 Weight 42.5 kg Intake: IV 715 Output: Urine 150 Other: Urine Color Yellow Urine Appearance Sediment Urine Odor Normal Falls Risk Assessment History of Falls Admit Due to Fall 08/13/24 20:49 Contributing Factors Confusion,Impairments 08/13/24 20:49 Ambulatory Aids Uses ambulatory device 08/13/24 20:49 Tubes/Lines With any additional score 08/13/24 20:49 Gait Evaluation W/any additional score 08/13/24 20:49 Cognition Cognitive impairment 08/13/24 20:49 Fall Total Score 101 08/13/24 20:49 Level of Risk Maximum Risk 08/13/24 20:49 Problems (Last Reviewed 08/13/24 @ 20:00 by Venkat Valles) Hypomagnesemia (Acute) Acute right hip pain (Acute) Dementia (Chronic) Unsteady gait (Chronic) Hypothyroid (Chronic) CAP (community acquired pneumonia) (Acute) v v v v v v v v v Sending and/or Receiving Nurses: Please use comment section below to note any information pertinent to the patient hand-off not included above. Information / Comments: Pt arrived to ED post fall at home per brother. Pt tachypneic, tachycardic and febrile upon arrival. Pt c/o RLE pain, Xray neg for fractures. CXR shows bilateral PNA. Pt started on ceftriaxone and doxycycline. Scattered bruising to bilateral knees and elbows. Pt is A&O x 1, hx of dementia. IV tylenol and 500ml bolus given with good result. Current VS: HR 86, R 20, BP 125/58, Temp 99.4, SPO2 96% on RA. Pt is 1A w/ walker. Report received from: Venkatesh Rouse, PERLA
[2024-08-13] MEDS: AZITHROMYCIN 500 MG in Normal Saline 250 ML 250 MG IVPB (23:55)
[2024-08-14] VITALS (12 sets, daily range): BP systolic 94–105; BP diastolic 50–55; PULSE 80–99; RESP 2–19; TEMP 36.5–37.5; O2SAT 91–100
[2024-08-14] MEDS: Albuterol/Ipratropium 3 ML UPD VIAL IH ×3 (02:45→21:33)
[2024-08-14] MEDS: Levothyroxine 50 MCG TAB 75 MCG PO (05:55)
[2024-08-14 06:47] LABS: HCT 32.5 % (36.0-46.0); HGB 10.5 g/dL (11.2-15.7); MCH 29.2 pg (27.0-33.0); MCHC 32.3 % (32.0-36.0); MCV 90 fL (80-95); MPV 10.1 fL (8.0-11.0); Platelet Count 184 10^3/uL (130-400); RDW-SD 53.3 fL; WBC 20.06 10^3/uL (4.4-10.8)
[2024-08-14 07:17] LABS: ALT 8 U/L (14-59); AST 16 U/L (15-37); Albumin 2.1 g/dL (3.4-5.0); Alkaline Phosphatase 103 U/L (46-116); Anion Gap 6.3 mmol/L (3-11); BUN 21 mg/dL (7-18); Bilirubin, Total 0.41 mg/dL (0.2-1.0); CO2 29.7 mmol/L (21.0-32.0); CREATININE 0.9 mg/dL (0.55-1.02); Calcium 8.6 mg/dL (8.5-10.1); Chloride 104 mmol/L (98-107); Estimated GFR 63.83 (mL/min/1.73m2); Glucose 88 mg/dL (74-106); Magnesium 2.1 mg/dL (1.8-2.4); Potassium 3.3 mmol/L (3.5-5.1); Sodium 140 mmol/L (136-145); Total Protein 6.6 g/dL (6.4-8.2)
[2024-08-14] MEDS: Calcium Carbonate 1.5 GM TAB PO (07:39)
[2024-08-14] MEDS: Pantoprazole 40 MG TABCR PO (07:39)
[2024-08-14] MEDS: Cholecalciferol (Vitamin D3) 1,000 UNIT TAB 2000 UNITS PO (07:39)
[2024-08-14] MEDS: Ferrous Sulfate 325 MG TAB PO (07:39)
[2024-08-14] MEDS: Normal Saline 1,000 ML 100 ML IV ×2 (07:40→17:34)
[2024-08-14] MEDS: Potassium Chloride 20 MEQ TABCR 40 MEQ PO (09:45)
--- NOTE | 2024-08-14 10:35 | NUR.NOTE ---
Nursing Note: RN noted patient unable to saftley swallow medication, fluids and food without coughing or aspirating. HYDRO TECHNICIAN aware, speech consult ordered.
--- NOTE | 2024-08-14 11:40 | IN_ITS ---
Date of service: 08/14/24 Time of Service: 11:17 PT Notes Visit Reasons: Right upper lobe pneumonia, COPD with emphysema Inpatient Physical Therapy Evaluation I certify the need for these services as being medically necessary and skilled as furnished under this plan of treatment while under my care. Please sign and return within 14 days if you agree with the plan of care listed below.? Thank you for this referral! ? Referring Physician? Date Referring Doctor:? Venkat Valles PT Orders: PT CONSULT for frequent falls with right hip pain Precautions: fall risk Patient Profile/Admitting Diagnosis:? The patient is an 84 yo female adm on 08/13/24 with community acquired pneumonia, COPD, Hypomagnesemia and right hip pain s/p fall at home. Past Medical History: PFSH All Active Problems Hypomagnesemia (Acute) SASKIA (obstructive sleep apnea) (Chronic) Acute right hip pain (Acute) Pneumonia (Acute) Dementia (Chronic) Anemia (Chronic ~04/19/24) Unsteady gait (Chronic) Advanced care planning/counseling discussion (Acute) Palliative care patient (Acute) Underweight (Acute) Mild cognitive impairment with memory loss (Acute) Bronchiectasis (Acute) [facility] Pulmonary, last eval 05/2023Hypothyroid (Chronic) CAP (community acquired pneumonia) (Acute) Medical History COPD (chronic obstructive pulmonary disease) Hypercholesterolemia Surgical History S/P tonsillectomy Medications: See chart Social History/Home Situation: Lives with brother, Venkat, and his in [facility] in a one level home with 3 steps to enter. Normally walks around the home with a 2 wheeled rolling walker independently (holding too far anteriorly at baseline). Sister in laws assists with showering (just got a walk in shower with grab bar). Patient is normally able to dress herself. Family assists with meals, laundry, appointments, etc Subjective: I don't shower...I can't get over the edge (of the tub. Brother reports she has used the new walk in shower with the assist of his . Objective: Mental Status: Patient is alert. Able to state her name. Difficulty but was able to report the town she lives in. Did not remember that she had a new walk in shower that she had used. Pain: C/o left pain today. C/o right hip pain upon admission; negative right hip xray. Vital Signs: 11:14 97/50 89 bpm 92% on RA by nursing just prior to arrival. ROM/Strength: Upper extremities: able to move against gravity WFL with c/o pain Lower extremities: able to move against gravity WFL with c/o left hip pain Sensation: no c/o numbness or tingling Soft tissue/edema: no bruising observed on either hip. bruising in left anterior elbow Bed Mobility: Supine to sit supervision Transfers: Sit to/from stand CGA. Patient leaving walker and turning to sit on the bed quickly, starting to sit prior to completely turned and in line with bed Gait: Ambulated 30 feet with rolling walker close CGA, holding walker too far anteriorly. Assist with walker positioning by therapist 2x for safety. Balance: Unsteady in standing with walker [facility] 6 clicks Basic Mobility Inpatient Short Form: Raw Score:???18? CMS Score:46.58% Informed Consent/Education:? Patient instructed in purpose of PT consult and plan of care and is agreeable Assessment:? The patient is an 84 yo female adm on 08/13/24 with community acq uired pneumonia, COPD, Hypomagnesemia and right hip pain s/p fall. ? Patient presents with left hip pain (previously right hip pain), decreased strength, decreased functional mobility, decreased balance and difficulty with ambulation. The patient would benefit from skilled inpatient services to improve these impairments to maximize function and safety. Patient is assessed as:? Low 36118?? History: dementia Examination: see above Presentation: Stable and uncomplicated? Decision Making:? Low (0 history, 1-2 exam, stable/predictable, easy 20) Goals: 3 days Able to get in/out of bed independently Able to perform sit to/from stand with supervision only. Able to walk 100 feet with rolling walker with supervision only. Able to go up and down 2-3 steps with 1 rail with contact guard assist only. Independent with home exercise program Plan of Care/Treatment Plan: 1-2x/day, 7 days/week x 1 week. Plan of care has been reviewed with the DEVELOPMENT ASSISTANT providing the service under Physical Therapy direction. Initiate Physical Therapy intervention for strengthening, bed mobility, transfers, gait, stairs, balance training, use of assistive device. DISCHARGE RECOMMENDATIONS: HHPT Informed consent Prior to the start and throughout the course of the examination and treatment, patient was made aware of the specifics and purpose of the physical assessment and treatment procedures. Appropriate draping procedures were utilized to protect modesty where applicable. Billing Charges: Treatment Units Time Duration Manual Therapy(91180) Hands-on techniques to modulate pain increase joint range of motion reduce or eliminate soft tissue swelling, inflammation, or restriction facilitate relaxation and improve contractile and non-contractile tissue extensibility ? ? Therapeutic Procedures (20835) Instruction in therapeutic exercises to develop strength and endurance, range of motion and flexibility. HEP instruction and review: Provided skilled instruction in proper exercise performance: Provided skilled manual cues to facilitate proper muscle recruitment and/or movement pattern Neurological Re-Education(05689) To improve balance, coordination, kinesthetic and proprioceptive sensations. ? ? Ultrasound(41619) To promote healing. ? ? Gait Training(02840) ? ? Therapeutic Activity(05032) Instruction in dynamic activities with one on one patient contact by the provider to improve functional performance as follows: 1 ? 9 ? Self Care Training(55182) ? ? E-Stim (Attended)(71645) ? ? Low IE(25513) 1 15 Mod IE(02444) ? ? High IE(96629) ? ? Time Coded Treatment Time ? 9 Total Treatment Time ? 24
[2024-08-14] MEDS: cefTRIAXone 1 GM/50 ML BAG IVPB (17:01)
--- NOTE | 2024-08-14 17:17 | W.PM.PROGNOT ---
Date of Service Date of service: 08/14/24 Time of Service: 17:17 Assessment and Plan Assessment and plan (1) CAP (community acquired pneumonia): Start date: 08/13/24 Status: Acute Assessment and plan: Right upper lobe pneumonia Continue ceftriaxone and Zithromax Nebulizer treatments for her underlying COPD with emphysema and pulmonary fibrosis. IS (2) COPD (chronic obstructive pulmonary disease): Assessment and plan: Continue nebulizer treatments (3) Hypomagnesemia: Start date: 08/13/24 Status: Resolved Assessment and plan: 2.1 today - trend (4) Acute right hip pain: Start date: 08/13/24 Status: Acute Assessment and plan: Patient did fall but has no acute fracture by imaging. PT consult -if pain persist, consider CT of the hip and pelvis reviewing for occult fracture. (5) Unsteady gait: Status: Chronic Assessment and plan: Patient does have arthritis and uses a walker and/or cane at home but did fall and is falling more frequently with increased weakness at home. Consider increase services at discharge. (6) Dementia: Status: Chronic Assessment and plan: Some memory deficits but is not on medication for behavioral abnormalities. Continue nutritional supplements as tolerated. (7) Hypothyroid: Status: Chronic Assessment and plan: Continue outpatient medical therapy. TSH was normal. (8) DNR (do not resuscitate) discussion: Status: Acute Assessment and plan: Patient was admitted with Full Code status. Her brother, Venkat, is the DPOA (Durable Power of Public Affairs Specialist). Shannon has a history of dementia and was somewhat confused today, but was able to recognize her location, identify her brother, and express that she wanted him to make all decisions for her. Venkat and Naila discussed code status and the various medical orders in the event of a life-threatening situation, particularly cardiac or respiratory arrest. We reviewed the following options: Full Code: Full resuscitation efforts, including chest compressions, defibrillation, medications, and intubation if necessary. Full Code offers the most aggressive chance of survival, but with potential for harm and suffering, especially in terminal or irreversible conditions. Do Not Resuscitate: No resuscitation (no CPR, intubation, or life support) if heart or breathing stops. DNR respects the desire for a natural without aggressive interventions, but sacrifices the possibility of recovery from a potentially reversible event. Do Not Intubate: No intubation if breathing stops, but CPR and other life-saving measures are still allowed. DNI offers a middle ground, allowing for life-saving treatments like CPR while avoiding invasive procedures like intubation, though it may not be sufficient in cases of severe respiratory failure. We discussed the risk/benefit of each. After the discussion, Shannon decided on DNR/DNI, and Venkat agreed. A COLST form was completed, signed, and scanned into her chart. Subjective Subjective Patient reports: no new complaints, tolerating a regular diet (small bites, thickened liquids ), voiding w/o difficulty, no bowel movement, bowel movement and afebrile; denies flatus, diarrhea or nausea Interval history since last seen: Conversant, up in the chair, somewhat confused to time/season. Answers where she is, who is with her etc but unclear on the date, holday, how long she has been here. Exam Narrative Exam Narrative: Frail elderly female in no acute distress sitting in the recliner in the room. Head is atraumatic oral mucosa slightly dry, no JVD, cardiovascular regular rate and rhythm respirations are even and unlabored breath sounds diminished throughout with scattered expiratory wheeze. Abdomen benign extremities no edema bilateral lower moves all extremities. She is nontoxic-appearing and well perfused no oxygen requirement satting in the mid 90s on room air. Psych Mental Status: mental status grossly normal and other (Cognitive impairment) Speech and Movement: speech and movement normal Mood: congruent mood and other (Cognitive impairment) Affect: normal affect Objective Last Vital Signs Temp 36.5 C 08/14/24 14:59 Pulse 86 08/14/24 14:59 Resp 18 08/14/24 14:59 BP 105/55 L 08/14/24 14:59 Pulse Ox 93 08/14/24 14:59 Laboratory Results - last 24 hr 08/13/24 08/13/24 08/13/24 16:35 16:44 18:32 WBC RBC Hgb Hct MCV MCH MCHC RDW Plt Count MPV Sodium 136 Potassium 4.0 Chloride 98 Carbon Dioxide 32.5 H Anion Gap 5.5 BUN 25 H Creatinine 1.1 H Est GFR (CKD-EPI 2020) 50.17 Glucose 115 H Calcium 9.3 Magnesium 1.6 L Total Bilirubin 0.61 AST 21 ALT 16 Alkaline Phosphatase 131 H Troponin I 17 Total Protein 8.5 H Albumin 2.9 L TSH 0.58 Urine Color Yellow Urine Clarity Clear Urine pH 6.5 Ur Specific [place] 1.020 Urine Protein 100 H Urine Ketones Negative Urine Blood Negative Urine Nitrite Negative Urine Bilirubin Negative Urine Urobilinogen 0.2 Ur Leukocyte Esterase Negative Urine RBC 0-2 Urine WBC 0-2 Ur Epithelial Cells Rare Urine Crystals Negative Urine Bacteria Negative Urine Mucus Negative Ur Culture Indicated? No Urine Glucose Negative COVID-19 Source NASOPHARYNX SARS-CoV-2 (PCR) Negative Influenza Type A (PCR) Negative Influenza Type B (PCR) Negative RSV (PCR) Negative 08/13/24 08/14/24 18:34 06:30 WBC 20.06 H RBC 3.60 L Hgb 10.5 L Hct 32.5 L MCV 90 MCH 29.2 MCHC 32.3 RDW 16.0 H Plt Count 184 MPV 10.1 Sodium 140 Potassium 3.3 L Chloride 104 Carbon Dioxide 29.7 Anion Gap 6.3 BUN 21 H Creatinine 0.9 Est GFR (CKD-EPI 2020) 63.83 Glucose 88 Calcium 8.6 Magnesium 2.1 Total Bilirubin 0.41 AST 16 ALT 8 L Alkaline Phosphatase 103 Troponin I 22 Total Protein 6.6 Albumin 2.1 L TSH Urine Color Urine Clarity Urine pH Ur Specific [place] Urine Protein Urine Ketones Urine Blood Urine Nitrite Urine Bilirubin Urine Urobilinogen Ur Leukocyte Esterase Urine RBC Urine WBC Ur Epithelial Cells Urine Crystals Urine Bacteria Urine Mucus Ur Culture Indicated? Urine Glucose COVID-19 Source SARS-CoV-2 (PCR) Influenza Type A (PCR) Influenza Type B (PCR) RSV (PCR) Time Spent with Patient Time Spent with Patient: 25-34 minutes Time was spent: preparing to see the patient(eg.review tests), ordering medications,tests, procedures, referring, communicating with other health health care coach, indepentently interpreting results, counseling the patient and care coordination
[2024-08-14] MEDS: Atorvastatin 10 MG TAB PO (22:19)
[2024-08-14] MEDS: Enoxaparin 40 MG/0.4 ML SYR SC (22:19)
[2024-08-15 00:29] VITALS: BP 96/51; PULSE 97; RESP 18; TEMP 37.6; O2SAT 93
[2024-08-15] MEDS: AZITHROMYCIN 500 MG in Normal Saline 250 ML 250 MG IVPB (00:41)
[2024-08-15 04:05] VITALS: BP 100/56; PULSE 85; RESP 18; TEMP 36.5; O2SAT 92
[2024-08-15 04:21] VITALS: PULSE 88; RESP 18; RESP 2; RESP 9; O2SAT 92
[2024-08-15] MEDS: Albuterol/Ipratropium 3 ML UPD VIAL IH (04:21)
[2024-08-15 04:43] VITALS: PULSE 72; RESP 18; RESP 2; RESP 9; O2SAT 93
[2024-08-15] MEDS: Normal Saline 1,000 ML 100 ML IV (05:11)
[2024-08-15 06:41] LABS: HCT 27.3 % (36.0-46.0); HGB 9.8 g/dL (11.2-15.7); MCH 33.2 pg (27.0-33.0); MCHC 35.9 % (32.0-36.0); MCV 93 fL (80-95); MPV 10.2 fL (8.0-11.0); Platelet Count 176 10^3/uL (130-400); RBC 2.95 10^6/uL (3.93-5.22); RDW 16.4 % (11.7-14.6); RDW-SD 55.3 fL; WBC 9.95 10^3/uL (4.4-10.8)
[2024-08-15] MEDS: Levothyroxine 50 MCG TAB 75 MCG PO (06:44)
[2024-08-15] MEDS: Pantoprazole 40 MG TABCR PO (06:47)
[2024-08-15 07:00] LABS: ALT 8 U/L (14-59); AST 15 U/L (15-37); Albumin 1.7 g/dL (3.4-5.0); Alkaline Phosphatase 89 U/L (46-116); Anion Gap 6.1 mmol/L (3-11); BUN 15 mg/dL (7-18); Bilirubin, Total 0.21 mg/dL (0.2-1.0); CO2 25.9 mmol/L (21.0-32.0); CREATININE 0.9 mg/dL (0.55-1.02); Calcium 8.4 mg/dL (8.5-10.1); Chloride 110 mmol/L (98-107); Estimated GFR 63.83 (mL/min/1.73m2); Glucose 84 mg/dL (74-106); Magnesium 1.9 mg/dL (1.8-2.4); Potassium 3.8 mmol/L (3.5-5.1); Sodium 142 mmol/L (136-145); Total Protein 5.7 g/dL (6.4-8.2)
[2024-08-15 07:46] VITALS: BP 105/54; PULSE 86; RESP 16; TEMP 36.7; O2SAT 97
--- NOTE | 2024-08-15 08:53 | PT.INTREAT ---
PT Notes Visit Reasons: Right upper lobe pneumonia, COPD with emphysema Inpatient Physical Therapy Treatment Note [facility] Date: 08/15/2024 PRECAUTIONS: Standard precautions. Fall risk. Activity as tolerated. SUBJECTIVE: Hopes to go back to brother's house as soon as medically cleared. Complained of pain in back of L hip that somewhat decreased with walking, Nurse Liam aware and managing. Mildly short of breath with activity but managed to recover okay later in the session. OBJECTIVE: IV through L UE. Cachexic.? No bruise/contusion noted on the L hip. Thoracic kyphosis. Mental Status: Mild confusion, thinks she is in [place] and unable to tell the year and the day. ? PAIN: Minimal pain in posterior L hip VITALS: ?126/56 mmHg, 96% SaO2on RA, 83 bpm AFTER walking about 100 feet ? BED MOBILITY/TRANSFERS: Moderate cueing provided for use of B hands as needed for support, movement sequence, AD management, and posture to reduce fall risk and minimize pain report ? Sit-stand: contact guard assist with FWW? Stand-sit: contact guard assist with FWW ? Bed-Chair: contact guard assist with FWW ? Chair-bed: contact guard assist with FWW GAIT: ? Minimal cueing provided for use of B hands as needed for support, movement sequence, AD management, and posture to reduce fall risk and minimize pain report Assistive Device: FWW? Weight bearing: FWB Assist: Stand by assist ? Distance:? 100 feet + 200 feet ? Deviation: Slowed lynn. Decreased step height and length. Decreased trunk extension. Mild SOB. No LOB. ? STAIRS: Minimal cueing provided for use of B hands as needed for support, movement sequence, AD management, and posture to reduce fall risk and minimize pain report. Guided patient with safe and correct negotiation of 6 x 4-inch steps and 4 x 6-inch steps while holding onto B rails for support with conatct guard assist provided. ASSESSMENT:? Femur and pelvic radiographs showed no fracture nor dislocation on L hip. Patient mildly confused, may be at baseline cognitive level as of right now. She will have adequate support at home and will benefit from PT services to continue with increasing safety of mobility performance using FWW. PLAN: Continue with PT POC to achieve initially established goals. DISCHARGE RECOMMENDATIONS: [] [] Home with no services [] [X] Home with services. Patient will benefit from home health PT services in order to progress mobility level using least restrictive assistive ambulatory device, assess home safety, identify additional equipment needs, and establish a functional maintenance program that will increase ability of patient to remain at home. [] Home with outpatient PT [] [] SNF for continued rehabilitation [] [] Sustainability Coordinator Care [] [] SNF versus LTC based on ability to participate and progress [] TREATMENT CODE/TIME: 99071 x 42 minutes for 3 units (8:53-09:40).
[2024-08-15] MEDS: Ferrous Sulfate 325 MG TAB PO (09:09)
[2024-08-15] MEDS: Calcium Carbonate 1.5 GM TAB PO (09:09)
[2024-08-15] MEDS: Cholecalciferol (Vitamin D3) 1,000 UNIT TAB 2000 UNITS PO (09:09)
--- NOTE | 2024-08-15 09:53 | PDOC.CMIN ---
Date of service: 08/15/24 Time of Service: 09:53 Care Management Initial Assmt Initial Assessment Reason for Hospitalization: Pneumonia Functional Status/Living Situation Town of Residence: [place] Resides with: Other (lives with brother Venkat) Employment Status: Retired Instrumental Activities of Daily Living (ADLs): Independent Medications Medication Management: No Issues/Barriers identified Physical Functioning/Mobility Assistive Device: uses cane and walker Advance Directives Advance Directives: Do you have an Advance Directive: N 06/30/23 14:30 AD On File at [facility]: N 06/30/23 14:30 Date Asked 08/13/24 08/13/24 16:09 AD Date Reviewed COLST On File at [facility] Yes 08/14/24 12:22 COLST Date Scanned 08/14/24 08/14/24 12:22 Code Status Resuscitation Status DNR/DNI Portal Pt does not currently have a portal and education provided: No Insurance Coverage/Financial Issues Insurance: Medicare Care Team Visit Care Team Role Provider Type Sean Henderson Primary Care Provider MD [facility] STAFF PHYSICIAN Keira Smith, BREAD DISTRIBUTOR Other Providers SPEECH LANGUAGE PATHOLOGIST Olga Lyons RDN, [facility] Other Providers CLOTHES WRINGER Yuli Pickens Other Providers CLOTHES WRINGER Wang Gordon, BREAD DISTRIBUTOR Other Providers SPEECH LANGUAGE PATHOLOGIST Rosana Montmeayor Other Providers SPEECH LANGUAGE PATHOLOGIST Ashley Null, BREAD DISTRIBUTOR Other Providers SPEECH LANGUAGE PATHOLOGIST Rashida Mata, BREAD DISTRIBUTOR Other Providers SPEECH LANGUAGE PATHOLOGIST Abram Carvalho Other Providers OTHER Mitch Conrad RDN Other Providers CLOTHES WRINGER Lakeshia Gallardo, EBONIE Emergency Provider NURSE PRACTITIONER Venkat Valles Admit Provider [facility] Attending Provider Discharge Potential Discharge Needs: PCP F/U Appt Anticipated Barriers to Discharge: None Identified Patient/Family Education Needs: Review discharge instructions, discuss Ask Me Three Transportation: Private vehicle Plan: Anticipate Shannon will be discharged back home with no new services when medically cleared. She will follow up with her PCP and plan ogf care and transport with family. CM will follow and continue to support discharge needs. Social Determinants of Health Screening Will the Patient Participate in the Screening?: Declined to provide PFSH All Active Problems (Updated 08/14/24 @ 17:56 by Sheree Giron NP) DNR (do not resuscitate) discussion (Acute) SASKIA (obstructive sleep apnea) (Chronic) Acute right hip pain (Acute) Pneumonia (Acute) Dementia (Chronic) Anemia (Chronic ~04/19/24) Unsteady gait (Chronic) Advanced care planning/counseling discussion (Acute) Palliative care patient (Acute) Underweight (Acute) Mild cognitive impairment with memory loss (Acute) Bronchiectasis (Acute) [facility] Pulmonary, last eval 05/2023 Hypothyroid (Chronic) CAP (community acquired pneumonia) (Acute) Medical History COPD (chronic obstructive pulmonary disease) Hypercholesterolemia Surgical History S/P tonsillectomy Social History Smoking/Tobacco Use Status: Never Smoking risk assessment performed?: Yes Alcohol Intake: never Drug use: Never Substance use type: does not use Housing: house Do you feel safe at home: Yes Do you feel safe in your relationship?: Yes
[2024-08-15 10:03] VITALS: O2SAT 100
--- NOTE | 2024-08-15 10:03 | PDOC.CMIN ---
Date of service: 08/15/24 Time of Service: 10:03 Care Management Initial Assmt Initial Assessment Reason for Hospitalization: pneumonia Functional Status/Living Situation Patient Presentation: Shannon was admitted through the ED on 08/13 secondary to a fall and increased weakness. She was unable to stand on her right leg after the fall. CXR showed possible RUQ pneumonia. Shannon was discharged home today before CM could meet with her. CM did speak with Shannon's brother, Venkat today, after she left. He stated that Shannon was so much better today, and he is happy to have her home. He was pleased to know that HH was going to be coming in, RN, PT, OT and LOOM CHANGER are all ordered and denied any concerns. 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) Instrumental Activities of Daily Living (ADLs): Independent and Requires support with Dishes/food prep, Continuous Still Operator, Groceries, Laundry and Transportation Activities/Hobbies/SocialSupport: likes to walk in good weather, enjoys caring for her grand nephew Medications Medication Management: No Issues/Barriers identified Advance Directives Advance Directives: Do you have an Advance Directive: N 06/30/23 14:30 AD On File at [facility]: N 06/30/23 14:30 Date Asked 08/13/24 08/13/24 16:09 AD Date Reviewed COLST On File at [facility] Yes 08/14/24 12:22 COLST Date Scanned 08/14/24 08/14/24 12:22 Code Status Resuscitation Status DNR/DNI Insurance Coverage/Financial Issues Insurance: Medicare Care Team Visit Care Team Role Provider Type Sean Henderson Primary Care Provider NON-[facility] STAFF PHYSICIAN Keira Smith, LOOM CHANGER Other Providers SPEECH LANGUAGE PATHOLOGIST Olga Lyons, RANDELL, CDCES Other Providers AUXILIARY POWER EQUIPMENT OPERATOR Yuli Pickens Other Providers AUXILIARY POWER EQUIPMENT OPERATOR Wang Gordon, LOOM CHANGER Other Providers SPEECH LANGUAGE PATHOLOGIST Rosana Montemayor Other Providers SPEECH LANGUAGE PATHOLOGIST Ashley Null, LOOM CHANGER Other Providers SPEECH LANGUAGE PATHOLOGIST Rashida Mata, LOOM CHANGER Other Providers SPEECH LANGUAGE PATHOLOGIST In[employer] Luis E Carvalho Other Providers OTHER Mitch Conrad RDN Other Providers AUXILIARY POWER EQUIPMENT OPERATOR Lakeshia Gallardo NP Emergency Provider NURSE PRACTITIONER Venkat Valles Admit Provider NON-[facility] STAFF PHYSICIAN Attending Provider Discharge Potential Discharge Needs: PCP F/U Appt Anticipated Barriers to Discharge: None Identified Patient/Family Education Needs: Review discharge instructions, discuss Ask Me Three Transportation: Private vehicle (with brother) Plan: Shannon was discharged home today with new orders for HH RN, PT, OT and LOOM CHANGER. CM was in touch with Shannon's Grievance And Appeals Specialist at her PCP office. Encouraged a ugashik on aging referral, or addition of CAMERA CONTROL OPERATOR to her HH orders, for senior care planning. Shannon has new orders for antibiotic tx, and will need to f/u with her PCP. Shannon was driven home by her brother. Social Determinants of Health Screening Will the Patient Participate in the Screening?: Declined to provide PFSH All Active Problems (Updated 08/14/24 @ 17:56 by Sheree Giron NP) DNR (do not resuscitate) discussion (Acute) SASKIA (obstructive sleep apnea) (Chronic) Acute right hip pain (Acute) Pneumonia (Acute) Dementia (Chronic) Anemia (Chronic ~04/19/24) Unsteady gait (Chronic) Advanced care planning/counseling discussion (Acute) Palliative care patient (Acute) Underweight (Acute) Mild cognitive impairment with memory loss (Acute) Bronchiectasis (Acute) [facility] Pulmonary, last eval 05/2023 Hypothyroid (Chronic) CAP (community acquired pneumonia) (Acute) Medical History COPD (chronic obstructive pulmonary disease) Hypercholesterolemia Surgical History S/P tonsillectomy Social History Smoking/Tobacco Use Status: Never Smoking risk assessment performed?: Yes Alcohol Intake: never Drug use: Never Substance use type: does not use Housing: house Do you feel safe at home: Yes Do you feel safe in your relationship?: Yes Readmission Within the Past 30 Days Yes or No: No Anticipated HH Services Anticipated HH Services at Discharge [facility] Needed, OT, PT, RN and Other (speech).
--- NOTE | 2024-08-15 10:59 | W.PM.DS.N ---
Date of service: 08/15/24 Time of Service: 10:59 DS: Diagnosis Discharge Diagnosis (1) CAP (community acquired pneumonia): Status: Acute (2) COPD (chronic obstructive pulmonary disease): (3) Hypomagnesemia: Status: Resolved (4) Acute right hip pain: Status: Acute (5) Unsteady gait: Status: Chronic (6) Dementia: Status: Chronic (7) Hypothyroid: Status: Chronic (8) DNR (do not resuscitate) discussion: Status: Acute Discharge Plan Disposition Patient Disposition: Home W/Home Health Services Condition: Improving Discharge Details Reason For Visit: Right upper lobe pneumonia, COPD with emphysema Admit Date/Time: 08/13/24 19:52 Admit Provider: Venkat Valles Attending Provider: Venkat Valles Primary Care Provider: Sean Henderson Hospital Course Hospital Course: This is an 84-year-old female patient past medical history significant for dementia, hypothyroidism, COPD who presented to the emergency department for evaluation of increased weakness and falls. Her workup in the emergency department was concerning for a right upper lobe pneumonia. She was admitted under hospitalist services and treated with ceftriaxone and azithromycin. She was not hypoxic with no oxygen requirements. She also was complaining of right hip pain following her fall there was no fracture by imaging and she has safely been really ambulated. She was also noted to have some difficulty with swallowing with suspicion of aspiration. She is being discharged to home on Augmentin for 3 more days to complete a 5-day course. She will be referred to home health services for nursing, physical therapy, Occupational Therapy, speech therapy, and medical manager. She has remained medically stable she has had no fever oxygenating in the mid to high 90s on room air with stable vital signs. She has been really ambulated with physical therapy utilizing her walker and tolerated well. Prescription has been sent to [facility] for Augmentin for 3 more days. Home health referral has been sent for the above services. She is also followed by palliative services who will follow her outpatient. She is being discharged to home by private vehicle. She resides with her brother and his discharge discussed with Dr. Clifton Home Meds and New Rx's Prescriptions: New amoxicillin-pot clavulanate 875-125 mg tablet 1 tab PO BID Qty: 7 0RF Continued levothyroxine 50 mcg tablet 75 mcg PO DAILY Patient Comments: TAKE 1 TABLET BY MOUTH ONCE DAILY Ensure Enlive 0.08 gram-1.5 kcal/mL liquid 250 ml PO BID ferrous sulfate [FeroSul] 325 mg (65 mg iron) tablet 325 mg PO DAILY omeprazole 40 mg capsule,delayed release(DR/EC) 40 mg PO DAILY atorvastatin 10 mg tablet 10 mg PO QPM Patient Comments: TAKE 1 TABLET BY MOUTH AT BEDTIME cholecalciferol (vitamin D3) [D3 DOTS] 50 mcg (2,000 unit) tablet 50 mcg PO DAILY calcium carbonate [Calcium 600] 600 mg calcium (1,500 mg) tablet 1,200 mg PO DAILY ipratropium-albuterol 0.5 mg-3 mg(2.5 mg base)/3 mL solution for nebulization 3 ml INHALATION 4XD PRN Patient Comments: USE 1 AMPULE IN NEBULIZER 4 TIMES DAILY Discharge Instructions Instructions: Community-acquired pneumonia in adults Additional Instructions: please complete antibiotics as prescribed even if you feel better. resume usual medication as previously directed. you have been ordered home health services for further evaluation and recommendations. Referrals: Sean Henderson [Primary Care Provider] - Activity:: Activity as Tolerated Equipment/Supplies:: No Equipment Needed Diet:: As Tolerated Discharge Orders Discharge Orders: Discharge Order (Routine); Ordered 08/15/24 Ordered By: Kassie Garrison DS: Summary Time Spent with Patient providing and/or coordinating discharge services: Greater than 30 minutes Status at Discharge Functional status at discharge: uses cane/walker Overall status at discharge: patient is progressing back to baseline Mental Status: other (Dementia at baseline) Speech and Movement: speech and movement normal Mood: congruent mood and other (Dementia at baseline) Affect: normal affect Quality:SDOH Health Related Social Needs: No Data to Display Exam Narrative Exam Narrative: Frail elderly female of stated age in no acute distress sitting up in her Eileen chair. She has been awake oriented to person alert, interactive and responding appropriately. Head is atraumatic eyes nonicteric noninjected oral mucosa is moist neck with no JVD full range of motion respirations even and unlabored she has bibasilar Rales cardiovascular regular rate and rhythm positive murmur. Abdomen is flat nontender extremities without edema moves extremities equally she is kyphotic. Psychiatric normal mood and affect, she is animated this morning when she was told that she was being discharged. Psych Mental Status: other (Dementia at baseline) Speech and Movement: speech and movement normal Mood: congruent mood and other (Dementia at baseline) Affect: normal affect DS: Data Vitals/I&O Vitals and I&O: Vital Signs Temperature 36.7 C 08/15/24 07:46 Temperature Source Tympanic 08/15/24 07:46 Pulse 86 08/15/24 07:46 Pulse Rhythm Regular 08/13/24 20:49 Pulse 87 08/13/24 20:31 Respiratory Rate 16 08/15/24 07:46 Respiratory Effort Normal, Non-Labored 08/13/24 20:49 Respiratory Depth Normal 08/13/24 20:49 Respiratory Pattern Normal 08/13/24 20:49 Blood Pressure 105/54 L 08/15/24 07:46 Blood Pressure Mean 81 08/13/24 20:31 Pulse Oximetry 100 08/15/24 10:03 Oxygen Delivery Method Room Air 08/15/24 10:03 Oxygen Flow Rate 0 08/15/24 10:03 Pain Level 0 08/15/24 04:05 Intake & Output 08/14/24 08/14/24 08/15/24 11:59 23:59 11:59 Intake Total 1471.667 / 2610.000 1138.333 / 2610.000 2432 2433 Output Total 200 / 680 480 / 680 400 / 400 Balance 1271.667 / 1930.000 658.333 / 8789.230 5582 / 2033 Weight 43.6 kg Intake: IV 1471.667 / 2510.000 1038.333 / 2510.000 2072 Oral 100 / 100 360 / 360 Output: Urine 200 / 680 480 / 680 400 / 400 Other: Urine Color Yellow Yellow Yellow Urine Appearance Clear Clear Clear Sediment Urine Odor Normal None Normal Stool Size Large Small Stool Characteristics Formed Soft Liquid Data Completed and Pending Labs on day of discharge: Labs from last 24 hours 08/15/24 08/15/24 08/14/24 06:48 06:23 22:45 WBC 9.95 RBC 2.95 L Hgb 9.8 L Hct 27.3 L MCV 93 MCH 33.2 H MCHC 35.9 D RDW 16.4 H Plt Count 176 MPV 10.2 Sodium 142 Potassium 3.8 Chloride 110 H Carbon Dioxide 25.9 Anion Gap 6.1 BUN 15 Creatinine 0.9 Est GFR (CKD-EPI 2021) 63.83 Glucose 84 Calcium 8.4 L Magnesium 1.9 Total Bilirubin 0.21 AST 15 ALT 8 L Alkaline Phosphatase 89 Total Protein 5.7 L Albumin 1.7 L Urine Legionella Ag Pending Ur Strep pneumoniae Ag Pending Preliminary micro results at discharge 08/13/24 16:54 Blood Culture - Preliminary Blood Gram positive cocci 08/13/24 16:44 Blood Culture - Preliminary Blood NO GROWTH 24 HOURS PFSH All Active Problems (Updated 08/14/24 @ 17:56 by Sheree Giron NP) DNR (do not resuscitate) discussion (Acute) SASKIA (obstructive sleep apnea) (Chronic) Acute right hip pain (Acute) Pneumonia (Acute) Dementia (Chronic) Anemia (Chronic ~04/19/24) Unsteady gait (Chronic) Advanced care planning/counseling discussion (Acute) Palliative care patient (Acute) Underweight (Acute) Mild cognitive impairment with memory loss (Acute) Bronchiectasis (Acute) [facility] Pulmonary, last eval 05/2023 Hypothyroid (Chronic) CAP (community acquired pneumonia) (Acute) Medical History COPD (chronic obstructive pulmonary disease) Hypercholesterolemia Surgical History S/P tonsillectomy Social History Smoking/Tobacco Use Status: Never Smoking risk assessment performed?: Yes Alcohol Intake: never Drug use: Never Substance use type: does not use Housing: house Do you feel safe at home: Yes Do you feel safe in your relationship?: Yes Time Spent with Patient Time Spent with Patient: 45-69 minutes Time was spent: preparing to see the patient(eg.review tests), obtaining and/or reviewing separately otained hiistory, ordering medications,tests, procedures, referring, communicating with other health aged or disabled care worker, indepentently interpreting results, counseling the patient and care coordination
--- NOTE | 2024-08-15 11:11 | PDOC.HHF2F_ITS ---
Home Health Referral Home Health Orders Clinical synopsis of why skilled professionals are needed: Frail elderly female at high risk Medical diagnosis necessitation home health referral: Pneumonia, dementia, unsteady gait with recent falls, Registered Nurse: Check all that apply Instruct on new or changed medication(s)/assess compliance: Ordered Assess for exacerbation of medical condition, instruct patient/caregivers on signs and symptoms to report for early detection: Ordered Physical Therapist: Check all that apply Increase strength & endurance for safe mobility at home: Ordered To design/establish home maintenance program: Ordered Fall reduction therapy program for patient with history of frequent falls: Ordered Home safety evaluation and teaching/gait training including stair management (if applicable): Ordered Better Breathing Program: Ordered Occupational Therapist: Evaluate and treat for patient unable to perform ADL/IADL/self-care: Ordered Upper extremity strengthening, range and motion: Ordered Speech Therapist: Check all that apply For swallow evaluation/therapy due to dysphagia: Ordered Cognition/memory: Ordered Other: Suspect aspiration Home Bound Status Requires the aid of supportive device (check all that apply): Walker Describe why leaving home would require a considerable and taxing effort: Requires frequent rest periods, Confusion and Safety Concerns: describe (Frequent falls) Encounter Date and Reason: I certify that a FTF encounter for this patient was performed on August 15, 2024 and that such encounter was related to the primary reason the patient requires home health services. The encounter was conducted in the following manner: * By me as the certifying physician, FLIGHT LINE MECHANIC, PA or * By an inpatient physician, FLIGHT LINE MECHANIC or PA during an inpatient stay who communicated findings to me, Certification And Authentication I certify that I composed the above information based on my clinical judgment relating to this patient's medical condition and, if applicable, clinical findings communicated to me by the NPP or inpatient physician who performed the FTF encounter. Name of Provider that will be monitoring home health services: Sean Henderson
[2024-08-17 00:40] LABS: Streptococcus Pneumoniae Ag, U Negative (Negative)
== END 2024-08-15 11:39 | disposition home health service (06) | DRG 194 ==
LOC: ER 19:26 → MS 20:39
PROVIDERS: Nurse Practitioner Family; Admitting Provider Family Medicine; Emergency Provider Registered Nurse Emergency; PCP Student in an Organized Health Care Education/Training Program; Visit Provider Family Medicine
DX: J18.9 Pneumonia, unspecified organism (principal); J44.0 Chronic obstructive pulmonary disease with (acute) lower respiratory infection; J47.0 Bronchiectasis with acute lower respiratory infection; F03.90 Unspecified dementia, unspecified severity, without behavioral disturbance, psychotic disturbance, mood disturbance, and anxiety; D64.9 Anemia, unspecified; E03.9 Hypothyroidism, unspecified; E83.42 Hypomagnesemia; M25.551 Pain in right hip; Z66 Do not resuscitate; R53.1 Weakness; R29.6 Repeated falls; R13.10 Dysphagia, unspecified; G47.33 Obstructive sleep apnea (adult) (pediatric); W19.XXXA Unspecified fall, initial encounter
CPT/HCPCS: 00123; 36415; 73552; 80053; 85027; 87040; 87077; 87449; 87637; 93005; 96365; 96367; 96368; 97161; 97530; 99285; J1650; 71046; 72170; 73610; 81003; 81015; 83605; 83735; 84443; 84484; 85025; 87186; 87899; 93010; 94640; 94760; 99223; 99232; 99239; J0131; J0456; J0696; J3475; J7620

== ENCOUNTER 2024-12-10 00:34 | Outpatient (CLI) | payer MEDICARE, SELFPAY ==
[2024-12-10 14:13] LABS: Abs Immature Grans 0.02 10^3/uL (0.0-0.06); Absolute Basophil Count 0.03 10^3/uL (0.0-0.2); Absolute Eosinophil Count 0.21 10^3/uL (0.0-0.7); Absolute Lymphocyte Count 0.87 10^3/uL (1.2-3.4); Absolute Monocyte Count 0.46 10^3/uL (0.1-0.8); Absolute Neutrophil Count 4.19 10^3/uL (1.2-6.7); Basophils % 0.5 %; Eosinophils % 3.6 %; HCT 37.1 % (36.0-46.0); HGB 11.6 g/dL (11.2-15.7); Immature Grans % 0.3 %; Lymphocytes % 15.1 %; MCH 29.8 pg (27.0-33.0); MCHC 31.3 % (32.0-36.0); MCV 95 fL (80-95); MPV 10.1 fL (8.0-11.0); Neutrophils % 72.5 %; Platelet Count 262 10^3/uL (130-400); RBC 3.89 10^6/uL (3.93-5.22); RDW 15.5 % (11.7-14.6); WBC 5.78 10^3/uL (4.4-10.8)
== END 2024-12-10 00:35 | disposition home or self-care (01) ==
LOC: LBO 00:34
PROVIDERS: PCP Student in an Organized Health Care Education/Training Program; Visit Provider Student in an Organized Health Care Education/Training Program
DX: D50.9 Iron deficiency anemia, unspecified (principal)
CPT/HCPCS: 36415; 85025

== ENCOUNTER 2025-03-28 09:22 | Emergency (ER) | payer MEDICARE, SELFPAY ==
[2025-03-28] VITALS (20 sets, daily range): BP systolic 147–180; BP diastolic 76–101; PULSE 60–88; RESP 14–26; TEMP 34.7; O2SAT 93–97
--- NOTE | 2025-03-28 09:15 | RT.EKG_ITS ---
APPROVED REPORT Exam: Resting ECG Reason for Exam: chest pain Patient Location: E HR:74 bpm ECG Measurements Heart Rate 74 AXIS NM 170 P 79 QRSd 81 QRS 0 QT 350 T 88 QTc 389 Conclusion Sinus rhythm...normal P axis, V-rate 60- 99 Left atrial enlargement...P, P'>60mS, <-0.15mV V1 ST elevation, consider inferior injury...ST >0.08mV, II III aVF No STEMI
--- NOTE | 2025-03-28 09:46 | W.ED.GENAD ---
Discharge Plan Discharge Details Chief Complaint: SOB Clinical Impression: Chronic cough, Urinary tract infection Primary Care Provider: Sean Henderson ED Provider: Edgar Castelan Home Meds and New Rx's Prescriptions: New nitrofurantoin monohyd/m-cryst [Macrobid] 100 mg capsule 100 mg PO Q12H 5 Days Qty: 10 0RF Rx Instructions: must administer with a meal/food Continued levothyroxine 50 mcg tablet 75 mcg PO DAILY Patient Comments: TAKE 1 TABLET BY MOUTH ONCE DAILY Ensure Enlive 0.08 gram-1.5 kcal/mL liquid 250 ml PO BID ferrous sulfate [FeroSul] 325 mg (65 mg iron) tablet 325 mg PO DAILY omeprazole 40 mg capsule,delayed release(DR/EC) 40 mg PO DAILY atorvastatin 10 mg tablet 10 mg PO QPM Patient Comments: TAKE 1 TABLET BY MOUTH AT BEDTIME cholecalciferol (vitamin D3) [D3 DOTS] 50 mcg (2,000 unit) tablet 50 mcg PO DAILY calcium carbonate [Calcium 600] 600 mg calcium (1,500 mg) tablet 1,200 mg PO DAILY ipratropium-albuterol 0.5 mg-3 mg(2.5 mg base)/3 mL solution for nebulization 3 ml INHALATION 4XD PRN Patient Comments: USE 1 AMPULE IN NEBULIZER 4 TIMES DAILY Discharge Instructions Instructions: Cough in adults, Urinary Tract Infection, Adult ED Additional Instructions: Please follow-up with your primary care provider regarding your visit to the emergency department today. I did not appreciate a murmur on your exam today, and the remainder of your cardiac workup was reassuring. Your chest x-ray showed no signs of pneumonia, and blood test did not show evidence of an acute infection. However, your urinalysis performed today showed signs of possible infection as such we decided that treating with an antibiotic that is in your best interest given your recent new fatigue. Be sure to discuss results of all test performed here today to include radiology, and laboratory testing as well as results for any pending cultures. Should your symptoms worsen, or if you develop new concerning symptoms, please return immediately emergency department for further evaluation. HPI General Date/Time Provider Initiated Documentation: 03/28/25 09:26. HPI Narrative: 84-year-old female with asthma history of COPD, dementia, bronchiectasis, presents for evaluation of outpatient physician referral. As per the patient's medical detail representative her adult brother, he notes that over the past 10 days she has been more tired, and has not been eating or drinking as she normally does. He notes that she has a chronic cough, and was also complaining intermittently of feeling hot, although when he checked her temperature at home it was normal. He brought her to be seen by her PCP Dr. Azevedo today, who referred to the emergency department for concern of pneumonia, as well as when he noted as a new murmur on examination. Patient currently denies any significant complaints. Her brother also denies any recent hemoptysis, cyanosis, diarrhea, dysuria, vomiting, abdominal pain or any other new or concerning symptoms. Related Data Home Medications ?Medication ?Instructions ?Recorded ?Confirmed atorvastatin 10 mg tablet 10 mg PO QPM 07/01/23 10/08/24 calcium carbonate (Calcium 600) 1,200 mg PO DAILY 07/01/23 10/08/24 cholecalciferol (vitamin D3) 50 50 mcg PO DAILY 07/01/23 10/08/24 mcg (2,000 unit) tablet (D3 DOTS) ferrous sulfate 325 mg (65 mg 325 mg PO DAILY 05/09/24 10/08/24 iron) tablet (FeroSul) food supplemt, lactose-reduced 250 ml PO BID 05/09/24 10/08/24 0.08 gram-1.5 kcal/mL oral liquid (Ensure Enlive) levothyroxine 50 mcg tablet 75 mcg PO DAILY 05/09/24 10/08/24 omeprazole 40 mg capsule,delayed 40 mg PO DAILY 05/09/24 10/08/24 release ipratropium 0.5 mg-albuterol 3 mg 3 ml inhalation 4XD PRN 05/20/24 10/08/24 (2.5 mg base)/3 mL nebulization soln nitrofurantoin 100 mg PO Q12H 5 days #10 caps 03/28/25 monohydrate/macrocrystals 100 mg capsule (Macrobid) Previous Rx's ?Medication ?Instructions ?Recorded nitrofurantoin 100 mg PO Q12H 5 days #10 caps 03/28/25 monohydrate/macrocrystals 100 mg capsule (Macrobid) Allergies Allergy/AdvReac Type Severity Reaction Status Date / Time No Known Allergies Allergy Verified 10/08/24 08:44 General Stated Complaint: SOB KRISTIN: 3 Review of Systems All systems reviewed & are unremarkable except as noted in HPI and below Exam Narrative Exam Narrative: Gen: A&O NAD, emaciated. HEENT: NCAT, EOMI, not icteric. External ears normal. No rhinorrhea. Moist mucous membranes. Neck: Supple, full range of motion, no observable masses, No meningeal sign. Lungs: No Respiratory distress. No adventitious breath sounds on auscultation. CV: RRR, no edema. No appreciable murmurs. Abdomen: Soft, nondistended, No rebound tenderness. MSK: No joint swelling, no redness. Skin: No rashes, petechiae, lesions. Normal color per patient. Neuro: Normal Gait, Grossly intact. Psych: Appropriate for situation. Course Reevaluation(s) Additional Reevaluation(s): Patient resting comfortably in bed, no acute distress. Initial results shared with the patient and her brother, who are in agreement with starting antibiotics for possible urinary tract infection. Vital Signs Vital signs: Vital Signs Temperature 34.7 C L 03/28/25 09:23 Pulse 77 03/28/25 09:23 Respiratory Rate 18 03/28/25 09:23 Blood Pressure 180/84 H 03/28/25 09:23 Pulse Oximetry 95 03/28/25 09:23 Temperature 34.7 C L 03/28/25 09:44 Temperature Source Tympanic 03/28/25 09:44 Pulse 77 03/28/25 09:44 Respiratory Rate 18 03/28/25 09:44 Blood Pressure 180/84 H 03/28/25 09:44 Pulse Oximetry 95 03/28/25 09:44 Oxygen Delivery Method Room Air 03/28/25 09:44 Oxygen Flow Rate 0 03/28/25 09:44 Pain Level 0 03/28/25 09:44 Lab/Test Results Lab/Test Results: 03/28/25 10:57 Urine - Reflex from Ua Urine Culture - Pending Laboratory Tests Range/Units 03/28/25 03/28/25 03/28/25 09:44 09:44 10:44 WBC (4.4-10.8) 10^3/uL 5.99 RBC (3.93-5.22) 10^6/uL 4.31 Hgb (11.2-15.7) g/dL 12.6 Hct (36.0-46.0) % 40.3 MCV (80-95) fL 94 MCH (27.0-33.0) pg 29.2 MCHC (32.0-36.0) % 31.3 L RDW (11.7-14.6) % 14.9 H Plt Count (130-400) 10^3/uL 227 MPV (8.0-11.0) fL 10.7 Immature Gran % % 0.3 Neutrophils % % 68.3 Lymphocytes % % 14.5 Monocytes % % 7.7 Eosinophils % % 8.7 Basophils % % 0.5 Nucleated RBC % (0.0-0.3) % 0.0 Absolute Neutrophils (1.2-6.7) 10^3/uL 4.09 Absolute Lymphocytes (1.2-3.4) 10^3/uL 0.87 L Absolute Monocytes (0.1-0.8) 10^3/uL 0.46 Absolute Eosinophils (0.0-0.7) 10^3/uL 0.52 Absolute Basophils (0.0-0.2) 10^3/uL 0.03 Sodium (136-145) mmol/L 134 L Potassium (3.5-5.1) mmol/L 4.2 Chloride (98-107) mmol/L 94 L Carbon Dioxide (21.0-32.0) mmol/L 35.1 H Anion Gap (3-11) mmol/L 4.9 BUN (7-18) mg/dL 26 H Creatinine (0.55-1.02) mg/dL 0.8 Est GFR (CKD-EPI 2020) (mL/min/1.73m2) 73.52 Glucose (74-106) mg/dL 118 H Calcium (8.5-10.1) mg/dL 9.6 Magnesium (1.8-2.4) mg/dL 1.7 L Total Bilirubin (0.2-1.0) mg/dL 0.4 AST (15-37) U/L 21 ALT (14-59) U/L 14 Alkaline Phosphatase (46-116) U/L 120 H Troponin I (<or=51) ng/L 16 16 NT-Pro-B Natriuret Pep (<300) pg/mL 707 H Cancelled Total Protein (6.4-8.2) g/dL 8.3 H Albumin (3.4-5.0) g/dL 3.0 L Urine Color (Yellow) Urine Clarity (Clear) Urine pH (5-8) Ur Specific [place] (1.005-1.025) Urine Protein (Neg-Trace) mg/dL Urine Ketones (Negative) mg/dL Urine Blood (Negative) Urine Nitrite (Negative) Urine Bilirubin (Negative) Urine Urobilinogen (Up to 0.2) mg/dL Ur Leukocyte Esterase (Negative) Urine RBC (0-2) HPF Urine WBC (0-5) HPF Ur Epithelial Cells (Negative) HPF Urine Crystals (Negative) HPF Urine Bacteria (Negative) HPF Urine Casts (Negative) LPF Urine Mucus (Negative) Ur Culture Indicated? Urine Glucose (Negative) mg/dL Range/Units 03/28/25 10:57 WBC (4.4-10.8) 10^3/uL RBC (3.93-5.22) 10^6/uL Hgb (11.2-15.7) g/dL Hct (36.0-46.0) % MCV (80-95) fL MCH (27.0-33.0) pg MCHC (32.0-36.0) % RDW (11.7-14.6) % Plt Count (130-400) 10^3/uL MPV (8.0-11.0) fL Immature Gran % % Neutrophils % % Lymphocytes % % Monocytes % % Eosinophils % % Basophils % % Nucleated RBC % (0.0-0.3) % Absolute Neutrophils (1.2-6.7) 10^3/uL Absolute Lymphocytes (1.2-3.4) 10^3/uL Absolute Monocytes (0.1-0.8) 10^3/uL Absolute Eosinophils (0.0-0.7) 10^3/uL Absolute Basophils (0.0-0.2) 10^3/uL Sodium (136-145) mmol/L Potassium (3.5-5.1) mmol/L Chloride (98-107) mmol/L Carbon Dioxide (21.0-32.0) mmol/L Anion Gap (3-11) mmol/L BUN (7-18) mg/dL Creatinine (0.55-1.02) mg/dL Est GFR (CKD-EPI 2020) (mL/min/1.73m2) Glucose (74-106) mg/dL Calcium (8.5-10.1) mg/dL Magnesium (1.8-2.4) mg/dL Total Bilirubin (0.2-1.0) mg/dL AST (15-37) U/L ALT (14-59) U/L Alkaline Phosphatase (46-116) U/L Troponin I (<or=51) ng/L NT-Pro-B Natriuret Pep (<300) pg/mL Total Protein (6.4-8.2) g/dL Albumin (3.4-5.0) g/dL Urine Color (Yellow) Yellow Urine Clarity (Clear) Clear Urine pH (5-8) 6.5 Ur Specific [place] (1.005-1.025) 1.015 Urine Protein (Neg-Trace) mg/dL 100 H Urine Ketones (Negative) mg/dL Negative Urine Blood (Negative) Negative Urine Nitrite (Negative) Negative Urine Bilirubin (Negative) Negative Urine Urobilinogen (Up to 0.2) mg/dL 0.2 Ur Leukocyte Esterase (Negative) Moderate H Urine RBC (0-2) HPF 0-2 Urine WBC (0-5) HPF 10-20 H Ur Epithelial Cells (Negative) HPF Rare Urine Crystals (Negative) HPF Negative Urine Bacteria (Negative) HPF Moderate Urine Casts (Negative) LPF Negative Urine Mucus (Negative) Negative Ur Culture Indicated? Yes Urine Glucose (Negative) mg/dL Negative Medical Decision Making 84-year-old female presents as above. Vital signs within normal limits outside of chronic hypertension. Physical exam shows a elderly frail emaciated female, otherwise with no focal evidence of acute trauma, infection, or acute process. Given recent malaise, decreased p.o. intake as well as referral and concern for PCP will evaluate for occult infection such as pneumonia, UTI, ischemia, metabolic derangement, with labs, EKG, chest x-ray. Should patient have clinical decompensation, or if significant abnormalities are found on initial workup, will consider expanding differential and diagnostic workup. Imaging Data Radiologic Study: Radiologist's impression: Exam(s) XR CHEST 2V PA LATERAL EXAM: XR CHEST 2V PA LATERAL CLINICAL HISTORY: Cough and subjective fever TECHNIQUE: 2D digital imaging was performed. Two views. COMPARISON: No exams were available for comparison FINDINGS: Exam is limited by rotation on the frontal view. There overlying monitoring leads. HEART: Normal size. Aorta: Not dilated. PULMONARY VASCULATURE: Normal. MEDIASTINUM: Unremarkable. 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 There is stable left apical pleural thickening and scarring. The previously noted right sided infiltrate is no longer present. There is scarring seen on the lateral view anteriorly. No new infiltrate is visible. PLEURAL SPACE: No pleural effusion or pneumothorax. BONE:Severe levoscoliosis at the thoracolumbar junction. SOFT TISSUES: Unremarkable. IMPRESSION: No acute abnormality. DATA REPOSITORY: RADIATION DOSE DELIVERED: ECG Data Interpretation: Rhythm: NSR Rate: 74 bpm [place]: Normal axis Intervals: Normal intervals Other findings: No acute ST segment or T wave changes to suggest acute ischemia. PFSH All Active Problems (Updated 03/28/25 @ 11:37 by Edgar Castelan MD) Urinary tract infection (Acute) Chronic cough (Acute) DNR (do not resuscitate) discussion (Acute) SASKIA (obstructive sleep apnea) (Chronic) Acute right hip pain (Acute) Dementia (Chronic) Anemia (Chronic ~04/19/24) Unsteady gait (Chronic) Advanced care planning/counseling discussion (Acute) Palliative care patient (Acute) Underweight (Acute) Mild cognitive impairment with memory loss (Acute) Bronchiectasis (Acute) [facility], last eval 05/2023 Hypothyroid (Chronic) CAP (community acquired pneumonia) (Acute) Medical History COPD (chronic obstructive pulmonary disease) Hypercholesterolemia Surgical History S/P tonsillectomy Social History Smoking/Tobacco Use Status: Never Smoking risk assessment performed?: Yes Alcohol Intake: never Drug use: Never Substance use type: does not use Housing: house Do you feel safe at home: Yes Do you feel safe in your relationship?: Yes
[2025-03-28 09:56] LABS: Abs Immature Grans 0.02 10^3/uL (0.0-0.06); HCT 40.3 % (36.0-46.0); HGB 12.6 g/dL (11.2-15.7); Immature Grans % 0.3 %; MCH 29.2 pg (27.0-33.0); MCHC 31.3 % (32.0-36.0); MCV 94 fL (80-95); MPV 10.7 fL (8.0-11.0); Platelet Count 227 10^3/uL (130-400); RBC 4.31 10^6/uL (3.93-5.22); RDW 14.9 % (11.7-14.6); RDW-SD 51.3 fL; WBC 5.99 10^3/uL (4.4-10.8)
--- NOTE | 2025-03-28 10:12 | DI.RAD_ITS ---
Exam(s) XR CHEST 2V PA LATERAL EXAM: XR CHEST 2V PA LATERAL CLINICAL HISTORY: Cough and subjective fever TECHNIQUE: 2D digital imaging was performed. Two views. COMPARISON: No exams were available for comparison FINDINGS: Exam is limited by rotation on the frontal view. There overlying monitoring leads. HEART: Normal size. Aorta: Not dilated. PULMONARY VASCULATURE: Normal. MEDIASTINUM: Unremarkable. 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 There is stable left apical pleural thickening and scarring. The previously noted right sided infiltrate is no longer present. There is scarring seen on the lateral view anteriorly. No new infiltrate is visible. PLEURAL SPACE: No pleural effusion or pneumothorax. BONE:Severe levoscoliosis at the thoracolumbar junction. SOFT TISSUES: Unremarkable. IMPRESSION: No acute abnormality. DATA REPOSITORY: RADIATION DOSE DELIVERED:
[2025-03-28 10:22] LABS: ALT 14 U/L (14-59); AST 21 U/L (15-37); Albumin 3.0 g/dL (3.4-5.0); Alkaline Phosphatase 120 U/L (46-116); Anion Gap 4.9 mmol/L (3-11); BUN 26 mg/dL (7-18); Bilirubin, Total 0.4 mg/dL (0.2-1.0); CO2 35.1 mmol/L (21.0-32.0); Calcium 9.6 mg/dL (8.5-10.1); Chloride 94 mmol/L (98-107); Estimated GFR 73.52 (mL/min/1.73m2); Glucose 118 mg/dL (74-106); Magnesium 1.7 mg/dL (1.8-2.4); NT-proBNP 707 pg/mL (<300); Potassium 4.2 mmol/L (3.5-5.1); Sodium 134 mmol/L (136-145); Total Protein 8.3 g/dL (6.4-8.2); Troponin I 16 ng/L (<or=51)
[2025-03-28 11:16] LABS: Glucose Negative (Negative)
[2025-03-28 11:20] LABS: Troponin I 16 ng/L (<or=51)
[2025-03-28] MEDS: Acetaminophen 325 MG TAB PO (11:25)
[2025-03-28 11:26] LABS: C & S Indicated? Yes; RBC 0-2 HPF (0-2)
[2025-03-28] MEDS: MacroBID 100 MG CAP PO (11:53)
== END 2025-03-28 12:11 | disposition home or self-care (01) ==
LOC: ER 09:32
PROVIDERS: Emergency Provider General Practice; PCP Student in an Organized Health Care Education/Training Program
DX: N39.0 Urinary tract infection, site not specified (principal); R05.3 Chronic cough; R53.83 Other fatigue; I10 Essential (primary) hypertension
CPT/HCPCS: 99284 ×2; 36415; 80053; 93005; 71046; 81003; 81015; 83735; 83880; 84484; 85025; 87086; 93010

== ENCOUNTER 2025-07-02 14:27 | Inpatient (IN) | payer MEDICARE, SELFPAY ==
[2025-07-02 14:39] VITALS: BP 122/84; PULSE 82; RESP 14
--- NOTE | 2025-07-02 15:15 | RT.EKG_ITS ---
APPROVED REPORT Exam: Resting ECG Reason for Exam: AMS Patient Location: E HR:78 bpm ECG Measurements Heart Rate 78 AXIS NH 234 P 69 QRSd 92 QRS 95 QT 372 T -27 QTc 424 Conclusion Sinus rhythm, rate 78 1st degree HB, NH interval 234ms Borderline ST elevation II, aVF with new T wave inversion compared to priors, no reciprocal changes
--- NOTE | 2025-07-02 15:15 | DI.CT_ITS ---
Exam(s) CT ABDOMEN PELVIS CTA EXAM: CT ABDOMEN PELVIS CTA CLINICAL HISTORY: melana, eval GI bleed. TECHNIQUE: Imaging Protocol: Axial CT angiography was performed with multi- slice acquisition and multi-planar and/or 3D reconstructions. CONTRAST MATERIAL: Intravenous: Omnipaque 350 Contrast volume:60 ml Oral: no COMPARISON: CR XR PELVIS AP from 08/13/2024 CR XR CHEST 2V PA LATERAL from 03/28/2025 FINDINGS: Aorta: No aneurysm. No dissection. Moderate to severe outer atherosclerotic changes distally. No significant stenosis. Iliac Arteries: No evidence of stenosis. Common Femoral Arteries: No evidence of stenosis. Celiac [place]:Calcification at the origin and focal moderate to severe stenosis and some poststenotic dilatation. The splenic arteries heavily calcified. SMA: Heavy calcification at the origin. Occlusion in the proximal portion, proximally 3 cm. SMA is visible distal to this level. Renal Arteries: Calcification at the ostia. Mild bilateral stenosis stenosis. There is a single renal artery perfusing each kidney. [place]OL[place]: Not visible. Venous structures: The portal vein is patent. The hepatic veins and IVC are not yet opacified on the venous sequence. Lung bases:No acute findings. Chronic interstitial changes. Right middle lobe and lingular bronchiectasis. Mild right lower lobe bronchiectasis. Liver: Normal size. Normal density. No measurable mass. Gallbladder and biliary tract: There are few stones near the fundus of the gallbladder. No gallbladder wall thickening or abnormal distension. No biliary dilation. Pancreas: Normal density, no abnormal calcifications or inflammatory process. Spleen: Normal. Kidneys: Normal size, contour and axis. No obstructive uropathy. No masses seen. No evidence of calculi. Adrenal glands: No masses seen. Bladder: No gross wall thickening. No evidence of calculi. No evidence of mass. Bowel: There is some high density material within the colon, consistent with ingested material. No obstruction. Extensive diverticulosis. No gross evidence of diverticulitis. The evaluation is limited due to lack of intra-abdominal fat. No evidence active GI bleed. Normal quantity of stool. Appendix not visualized. Peritoneal cavity: No ascites. No focal collection. No mesenteric inflammatory response. Lymph nodes: Within normal limits. Reproductive: Unremarkable. Soft Tissues:Unremarkable. Bones: No acute findings. Severe scoliosis and degenerative changes. IMPRESSION: No visible GI bleed. Extensive diverticulosis. No evidence of aneurysm or dissection. 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 Findings called to ER provider. RADIATION DOSE DELIVERED: Total DLP DATA REPOSITORY: All CT scans at this facility are submitted to the National Radiology Data Registry (NRDR) Dose Index Registry (DIR) with the [employer] (ACR). RADIATION OPTIMIZATION: All CT scans at this facility use at least one of these dose optimization techniques: automated exposure control; mA and/or kV adjustment per patient size (includes targeted exams where dose is matched to clinical indication); or iterative reconstruction.
--- NOTE | 2025-07-02 15:15 | DI.US_ITS ---
Exam(s) US LOWER EXTREMITY VENOUS RT EXAM: US LOWER EXTREMITY VENOUS RT CLINICAL HISTORY: eval DVT, unilateral swelling. TECHNIQUE: Lower extremity venous ultrasound performed using grayscale, color- flow, and spectral Doppler analysis. COMPARISON: No exams were available for comparison FINDINGS: The common femoral, femoral and popliteal veins demonstrate normal compressibility, augmentation, and color Doppler. The posterior tibial and peroneal veins are patent. No saphenous vein thrombosis or other superficial venous thrombosis is seen. Edema in the subcutaneous fat of the lower leg. 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 IMPRESSION: Santos's cyst. No evidence of DVT. DATA REPOSITORY:
--- NOTE | 2025-07-02 15:44 | W.ED.GENAD ---
Discharge Plan Disposition Patient Disposition: Admit to [facility] Condition: Stable Discharge Details Clinical Impression: Palliative care patient, ST elevation (STEMI) myocardial infarction, GI bleeding, Dementia Primary Care Provider: Sean Henderson ED Provider: Micheline Escobar Home Meds and New Rx's Prescriptions: No Action levothyroxine 50 mcg tablet 75 mcg PO DAILY Patient Comments: TAKE 1 TABLET BY MOUTH ONCE DAILY Ensure Enlive 0.08 gram-1.5 kcal/mL liquid 250 ml PO BID ferrous sulfate [FeroSul] 325 mg (65 mg iron) tablet 325 mg PO DAILY omeprazole 40 mg capsule,delayed release(DR/EC) 40 mg PO DAILY atorvastatin 10 mg tablet 10 mg PO QPM Patient Comments: TAKE 1 TABLET BY MOUTH AT BEDTIME cholecalciferol (vitamin D3) [D3 DOTS] 50 mcg (2,000 unit) tablet 50 mcg PO DAILY calcium carbonate [Calcium 600] 600 mg calcium (1,500 mg) tablet 1,200 mg PO DAILY ipratropium-albuterol 0.5 mg-3 mg(2.5 mg base)/3 mL solution for nebulization 3 ml INHALATION 4XD PRN Patient Comments: USE 1 AMPULE IN NEBULIZER 4 TIMES DAILY HPI General Mode of arrival: wheelchair. Date/Time Provider Initiated Documentation: 07/02/25 14:58. Limitations to Documentation: altered mental status. Information obtained by: patient, family and old records reviewed. HPI Narrative: This is an 85-year-old female patient with a past medical history of dementia, iron deficiency anemia, SASKIA, COPD, bronchiectasis, who is followed by palliative care, presenting for evaluation of fatigue, low hemoglobin, and melena. The patient is accompanied by her brother, who is her primary caregiver. They noticed over the last few days that the patient has felt more weak than typical, has difficulty getting up and about and performing activities of daily living to her norm. She is alert and oriented to self only which is her baseline, but seems sleepier than typical. They have noticed several episodes of dark black runny stool, which is different from her normal stool. She takes iron supplementation but has been taking that for several years now. Has a history of GERD for which she takes omeprazole, does not take blood thinning medications. The patient reports no chest pain, abdominal pain, did have an episode of vomiting today. She has had a 1 week history of unilateral leg swelling on her right lower extremity without reported falls, trauma, or injury. She was seen at urgent care and had a [id number] hemoglobin of 9.9, and was sent to our facility for further workup and evaluation. Related Data Home Medications ?Medication ?Instructions ?Recorded ?Confirmed atorvastatin 10 mg tablet 10 mg PO QPM 07/01/23 07/02/25 calcium carbonate (Calcium 600) 1,200 mg PO DAILY 07/01/23 07/02/25 cholecalciferol (vitamin D3) 50 50 mcg PO DAILY 07/01/23 07/02/25 mcg (2,000 unit) tablet (D3 DOTS) ferrous sulfate 325 mg (65 mg 325 mg PO DAILY 05/09/24 07/02/25 iron) tablet (FeroSul) food supplemt, lactose-reduced 250 ml PO BID 05/09/24 07/02/25 0.08 gram-1.5 kcal/mL oral liquid (Ensure Enlive) levothyroxine 50 mcg tablet 75 mcg PO DAILY 05/09/24 07/02/25 omeprazole 40 mg capsule,delayed 40 mg PO DAILY 05/09/24 07/02/25 release ipratropium 0.5 mg-albuterol 3 mg 3 ml inhalation 4XD PRN 05/20/24 07/02/25 (2.5 mg base)/3 mL nebulization soln Allergies Allergy/AdvReac Type Severity Reaction Status Date / Time No Known Allergies Allergy Verified 07/02/25 14:41 General Stated Complaint: GenMedical KRISTIN: 3 Exam Narrative Exam Narrative: Gen: The patient keeps her eyes closed and when spoken to, appears in no apparent distress. Cachectic. HEENT: PERRL, EOMs full and without nystagmus. External ears and nose normal, mucous membranes moist. Neck: Supple, full range of motion, no observable masses Lungs: No increased work of breathing, lung sounds clear and equal bilaterally without wheezes, rhonchi, or rales. CV: Heart with regular rate and rhythm, no murmurs auscultated. Strong and symmetrical radial pulses. Abdomen: Soft, nondistended, non-tender to palpation. No rigidity, rebound tenderness, or guarding. MSK: No joint swelling, no redness. Full ROM without limitation, no external traumatic findings. 1+ peripheral edema right lower extremity to the mid recinos, with no induration, warmth, or significant redness. DP pulses present and symmetrical bilateral feet. Skin: No rashes or lesions to visualized skin. Normal color, warm, and dry. Neuro: Pleasantly confused, opens eyes to gentle verbal stimuli. Cranial nerves II-XII intact and symmetrical bilaterally. 4/5 strength in all muscle groups x4 extremities, consistent with the report of generalized weakness.. No sensory deficits. Course Vital Signs Vital signs: Vital Signs Pulse 82 07/02/25 14:39 Respiratory Rate 14 07/02/25 14:39 Blood Pressure 122/84 07/02/25 14:39 Temperature Source Tympanic 07/02/25 14:39 Pulse 82 07/02/25 14:39 Respiratory Rate 14 07/02/25 14:39 Blood Pressure 122/84 07/02/25 14:39 Oxygen Delivery Method Room Air 07/02/25 14:39 Oxygen Flow Rate 0 07/02/25 14:39 Medical Decision Making This is AN 85-year-old female patient presenting for evaluation of fatigue, melena, and right leg swelling. Differential includes but is not limited to GI bleeding, most likely upper GI bleeding, consider gastritis, peptic ulcer disease. No alcohol use reported nor history of liver failure to suggest portal hypertension, cirrhosis, hepatitis. No significant abdominal discomfort to suggest mesenteric ischemia, bowel obstruction, diverticulitis, appendicitis, cholecystitis. Considered anemia, metabolic electrolyte derangement, dehydration, kidney injury. Certainly considered DVT given the right lower extremity swelling, as well as cellulitis. Fluid overload/heart failure less likely given the unilaterality. Certainly considered arrhythmia, ACS, pericarditis/myocarditis. No respiratory complaints or hypoxia to suggest pneumonia, bronchitis, COPD exacerbation. We will obtain an EKG, labs to include CBC, CMP, magnesium, troponin, INR, type and screen, lactate, urinalysis. Obtain a CTA of the abdomen and pelvis to evaluate for sources of active GI bleeding. I will provide the patient with a dose of Protonix for GI protection, and obtain ultrasound of the right lower extremity. - I obtained an EKG, which shows a sinus rhythm with a first-degree heart block and new T wave inversions in 3 and aVF when compared to her most recent priors. She does have just shy of 1 mm of elevation in 2 and aVF without associated reciprocal changes. Ultrasound of her right lower extremity shows no DVT but does demonstrate a Santos's cyst. CTA of her abdomen and pelvis does not show any acute intra-abdominal bleeding, but does show some stenosis with revascularization/collateral circulation of her celiac and SMA. No elevation in lactate nor wall thickening to suggest mesenteric ischemia. I reviewed the patient's laboratory studies, which showed no leukocytosis, a mild anemia and no thrombocytopenia. Chemistry panel reveals an elevation in her BUN to 30 without associated creatinine elevation, which may represent dehydration given the ratio of greater than 20-1. She has no other significant electrolyte derangements, AST very slightly elevated to 51 but no other liver enzyme elevation. Initial troponin is notably elevated to 3400, TSH within normal limits. A repeat EKG was obtained, the patient remains chest pain-free. Repeat EKG shows worsening of the ST segment elevation in leads III amd aVF with ST depressions in V2 and V3, now meeting criteria for inferior STEMI. I shared this finding with the patient and her family member. The patient is her own DPOA, though given her dementia and baseline confusion I am concerned that she has limited understanding of her condition. Her family member at baseline is understanding of the diagnosis and states that the patient would not be amenable to transfer to a tertiary care facility such as [facility], and would not want to undergo cardiac catheterization. I did reach out to the cardiology team at [facility] to discuss this patient's case. Given the concern for active and ongoing ischemia (delta troponin 4600), they do recommend if the patient is amenable to proceed with medical management. Certainly the upper GI bleed makes heparinization a risk/benefits decision conversation. The patient did receive an oral dose of aspirin. She was unable to swallow the Plavix without coughing/choking, despite attempts to crush the pill or provide it with applesauce. I had an extended conversation with the patient and her family member regarding heparinization and the risk of associated worsening of her GI bleeding, versus holding anticoagulation and transitioning to hospice/comfort care for her ongoing acute myocardial infarction. The patient is unable to demonstrate complete understanding of her medical condition, her family member certainly understands the challenge of balancing risk of bleeding versus her active OK. When asked if the patient would prefer us to focus on prolonging her life with medical interventions, versus prioritizing her comfort, the patient states that she would prefer that we use medicine to prolong her life. She remains without desire for transfer or revascularization therapies. Given her risk of bleeding I did elect to provide her with a heparin drip without the bolus, and I reached out to the hospitalist team who is graciously accepted this patient for admission to their service for ongoing workup and management. She remained hemodynamically appropriate while under my care and was transferred to their service without incident. Micheline Escobar MD Quality:SDOH Health Related Social Needs: Health related social needs details pt with history of dementia, lives with brother, appears well cared for Critical Care Time Critical Care Time Critical Care Time: Yes Total Critical Care Time: 45 Attestation: Upon my evaluation, this patient had a high probability of imminent or life-threatening deterioration due to STEMI, GI bleed, which required my direct attention, intervention, and personal management. I have personally provided 45 minutes of critical care time exclusive of time spent on separately billable procedures. Time includes review of laboratory data, radiology results, discussion with consultants, and monitoring for potential decompensation. Interventions were performed as documented above. Micheline Escobar MD PFSH All Active Problems (Updated 07/02/25 @ 22:10 by Micheline Escobar MD) ST elevation (STEMI) myocardial infarction (Acute) Synovial cyst of popliteal space [Santos], right knee (Acute) GI bleeding (Chronic) STEMI (ST elevation myocardial infarction) (Acute) DNR (do not resuscitate) discussion (Acute) SASKIA (obstructive sleep apnea) (Chronic) Acute right hip pain (Acute) Dementia (Chronic) Anemia (Chronic ~04/19/24) Unsteady gait (Chronic) Advanced care planning/counseling discussion (Acute) Palliative care patient (Acute) Underweight (Acute) Mild cognitive impairment with memory loss (Acute) Bronchiectasis (Acute) [facility] Pulmonary, last eval 05/2023 Hypothyroid (Chronic) CAP (community acquired pneumonia) (Acute) Medical History COPD (chronic obstructive pulmonary disease) Hypercholesterolemia Pneumonia Surgical History S/P tonsillectomy Social History Smoking/Tobacco Use Status: Never Smoking risk assessment performed?: Yes Alcohol Intake: never Drug use: Never Substance use type: does not use Housing: house Do you feel safe at home: Yes Do you feel safe in your relationship?: Yes
[2025-07-02] MEDS: Normal Saline - Diluent 50 ML VIAL IJ (15:47)
[2025-07-02] MEDS: Normal Saline Flush 10 ML SYR IVP (15:47)
[2025-07-02] MEDS: Omnipaque 350 MG/ML 100 ML BTL IJ (15:47)
[2025-07-02 17:19] LABS: Abs Immature Grans 0.06 10^3/uL (0.0-0.06); HCT 34.7 % (36.0-46.0); HGB 10.7 g/dL (11.2-15.7); Immature Grans % 0.5 %; MCH 29.0 pg (27.0-33.0); MCHC 30.8 % (32.0-36.0); MCV 94 fL (80-95); MPV 10.6 fL (8.0-11.0); Platelet Count 187 10^3/uL (130-400); RBC 3.69 10^6/uL (3.93-5.22); RDW 15.7 % (11.7-14.6); RDW-SD 54.2 fL; WBC 11.72 10^3/uL (4.4-10.8)
[2025-07-02 17:29] LABS: INR 1.2 (0.9-1.1); Prothrombin Time 12.0 sec (9.1-11.1)
[2025-07-02 17:42] LABS: Magnesium 1.8 mg/dL (1.6-2.6)
[2025-07-02 17:43] LABS: ALT 12 U/L (10-49); AST 51 U/L (<34); Albumin 3.7 g/dL (3.4-5.0); Alkaline Phosphatase 120 U/L (46-116); Anion Gap 6.5 mmol/L (3-11); BUN 30 mg/dL (9-23); Bilirubin, Total 0.40 mg/dL (0.2-1.2); CO2 36.0 mmol/L (20.0-31.0); Calcium 9.8 mg/dL (8.3-10.6); Chloride 94 mmol/L (98-107); Glucose 97 mg/dL (74-106); Potassium 4.5 mmol/L (3.5-5.1); Sodium 137 mmol/L (136-145); Total Protein 7.8 g/dL (5.7-8.2)
[2025-07-02 17:45] LABS: TSH (W/Ref FT4) 2.67 uIU/mL (0.55-4.78)
--- NOTE | 2025-07-02 17:45 | RT.EKG_ITS ---
APPROVED REPORT Exam: Resting ECG Reason for Exam: Repeat please Patient Location: E HR:89 bpm ECG Measurements Heart Rate 89 AXIS MD 209 P 62 QRSd 98 QRS 93 QT 365 T -60 QTc 444 Conclusion Sinus rhythm, rate [address] elevation III, aVF, with ST depression in V2 and V3, increased compared to prior and concerning for inferior STEMI
[2025-07-02 17:59] LABS: Troponin I 3477 ng/L (<35)
[2025-07-02] MEDS: Pantoprazole 40 MG VIAL 80 MG IVP (18:14)
[2025-07-02] MEDS: Lactated Ringers 500 ML IV (18:20)
[2025-07-02] MEDS: Aspirin 81 MG CHEW 324 MG CH (18:58)
[2025-07-02 19:38] LABS: Troponin I 4662 ng/L (<35)
[2025-07-02] MEDS: Heparin in 0.45% NaCl 25,000 UNIT/250 ML BAG 5 UNIT IVINF (20:49)
--- NOTE | 2025-07-02 20:54 | W.PM.HP.N ---
Date of service: 07/02/25 Time of Service: 20:55 Assessment and Plan Assessment and plan (1) STEMI (ST elevation myocardial infarction): Status: Acute Assessment and plan: Evolving CASTILLO and weakness are her symptoms, troponins and EKG diagnostic for STEMI. Case reviewed with cardiology and patient/family Decision was made to not transfer for PCI, but treat medically without bolusing heparin or clopidogrel On ASA, clopidogrel, heparin. Give high dose atorvastatin and a small dose of metoprolol to start. Monitor on tele, but she is DNR/DNI. (2) GI bleeding: Status: Chronic Assessment and plan: history c/w UGI bleed. CTA of a/p did no show active bleeding. Given high dose PPI, will continue BID They do not desire intervention so will not consult surgery at this point. NPO for now however. AST up but this is acute, likely a/w STEMI rather than a sign of liver fibrosis and risk of portal HTN (3) Hypothyroid: Status: Chronic Assessment and plan: TSH at goal, no change in lT4 therapy (4) Underweight: Status: Acute Assessment and plan: She has slowly lost weight with deminished appetite a/w her dementia. Offer boost when taking PO again, consider nutrition consult. (5) COPD (chronic obstructive pulmonary disease): Assessment and plan: No active wheezing, monitor. (6) Anemia: Status: Chronic Assessment and plan: A/w what appears to be a subacute UGI bleed. hgb is a little below baseline. Will follow. Given STEMI I would use a threshold of 9 rather than the typical 7. Get iron/b12 levels with AM labs, treat deficiency if present. (7) Dementia: Status: Chronic Assessment and plan: chronic (8) Synovial cyst of popliteal space [Santos], right knee: Status: Acute Assessment and plan: Seen on LE ultrasound, no DVT. Can use TEDs to help swelling. (9) Advanced care planning/counseling discussion: Status: Acute Assessment and plan: She has previously communicated wishes of being DNR/DNI. Currently I don't think she has capacity for decision making, but brother Venkat is DPOA and confirms her wishes to be DNR/DNI and not transfer to tertiary care to persue most aggressive treatment. He understands risk of . 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 History per brother who lives with her, patient seems to agree but cannot relay recent history due to dementia. About 2 weeks ago he noticed she was getting more dyspeic when doing normal things around the house. She was more tired, would fall asleep during the day. Twice in the past 3 days, most recently yesterday, she had a black colored stool. She has had some intermittent chest pain over the past few days as well. This morning, he noticed she looked more pale and weak and took her to clinic. She complained of nausea and vomited (mostly mucous, no red or coffee grounds). She was sent to the ED. On direct questioning, she denies chest pain or palpitaitons currently. She is not short of breath. No abdominal pain, nausea has resolved. She is not hungry. She denies any alcohol or NSAID use. Review of Systems All systems reviewed & are unremarkable except as noted in HPI and below Constitutional Constitutional: Reports anorexia, Denies fever(s) and Reports weight loss (gradual) PFSH All Active Problems ST elevation (STEMI) myocardial infarction (Acute) Synovial cyst of popliteal space [Santos], right knee (Acute) GI bleeding (Chronic) STEMI (ST elevation myocardial infarction) (Acute) DNR (do not resuscitate) discussion (Acute) SASKIA (obstructive sleep apnea) (Chronic) Acute right hip pain (Acute) Dementia (Chronic) Anemia (Chronic ~04/19/24) Unsteady gait (Chronic) Advanced care planning/counseling discussion (Acute) Palliative care patient (Acute) Underweight (Acute) Mild cognitive impairment with memory loss (Acute) Bronchiectasis (Acute) [facility] Pulmonary, last eval 05/2023 CAP (community acquired pneumonia) (Acute) Hypothyroid (Chronic) Medical History Pneumonia COPD (chronic obstructive pulmonary disease) Hypercholesterolemia Surgical History S/P tonsillectomy Social History (Updated 07/02/25 @ 22:23 by Lan Thompson) Smoking/Tobacco Use Status: Never Smoking risk assessment performed?: Yes Alcohol Intake: never Drug use: Never Substance use type: does not use Adopted: Yes Housing: house Do you feel safe at home: Yes Do you feel safe in your relationship?: Yes Additional Social history: Lives with Brother Ray and his in [facility]. 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, lived in [place] areas prior to moving in with brother Meds Allergies and Home Medications Allergies Allergy/AdvReac Type Severity Reaction Status Date / Time No Known Allergies Allergy Verified 07/02/25 14:41 Home Medications ?Medication ?Instructions ?Recorded ?Confirmed ?Type atorvastatin 10 mg tablet 10 mg PO QPM 07/01/23 07/02/25 History calcium carbonate (Calcium 600) 1,200 mg PO DAILY 07/01/23 07/02/25 History cholecalciferol (vitamin D3) 50 50 mcg PO DAILY 07/01/23 07/02/25 History mcg (2,000 unit) tablet (D3 DOTS) ferrous sulfate 325 mg (65 mg 325 mg PO DAILY 05/09/24 07/02/25 History iron) tablet (FeroSul) food supplemt, lactose-reduced 250 ml PO BID 05/09/24 07/02/25 History 0.08 gram-1.5 kcal/mL oral liquid (Ensure Enlive) levothyroxine 50 mcg tablet 75 mcg PO DAILY 05/09/24 07/02/25 History omeprazole 40 mg capsule,delayed 40 mg PO DAILY 05/09/24 07/02/25 History release ipratropium 0.5 mg-albuterol 3 mg 3 ml inhalation 4XD PRN 05/20/24 07/02/25 History (2.5 mg base)/3 mL nebulization soln Exam Narrative Exam Narrative: GEN: Alert and oriented to self and hospital, but not town or time. cachectic appearing. Pleasant and cooperative, but unable to relate recent history. No acute distress at rest. HEENT: Head atraumatic. Conjunctiva clear, no icterus. PEERL, EOMI. no rhinorrhea. MMM, OP benign. Neck is supple with no masses or lymphadenopathy, trachea midline LUNGS: CTAB except slight rales just at bases bilaterally. Normal effo rt CV: RRR with no murmurs, gallops, or rubs. No elevation JVP ABD: active bowel sounds, soft, nontender and nondistended. No masses. EXT: no cyanosis, clubbing. warm. 1-2+ RLE edema, trace-1+ on left. no cords. MSK: No joint redness. kyphotic, leans to right. hypertrophic deformities of fingers. NEURO: CN 2-12 grossly intact. Normal movement of 4 extremities. Normal speech and coordination. No tremor SKIN: No rashes or open wounds. PSYCH: normal mood and affect, normal speech. poor short term memory Results Imaging Chest x-ray: report reviewed ( No acute abnormality.) and image reviewed Abdomen CT scan report/results: report reviewed (No visible GI bleed. Extensive diverticulosis. No evidence of aneurysm or dissection. 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 ) EKG: report reviewed (ST elevation V2, AVF with T inversions, new since 03/28/25 ) and image reviewed Labs 07/02/25 17:05 07/02/25 17:05 Labs: Laboratory Results - last 24 hr 07/02/25 07/02/25 17:05 18:55 WBC 11.72 H RBC 3.69 L Hgb 10.7 L Hct 34.7 L MCV 94 MCH 29.0 MCHC 30.8 L RDW 15.7 H Plt Count 187 MPV 10.6 Immature Gran % 0.5 Neutrophils % 90.6 Lymphocytes % 3.4 Monocytes % 4.9 Eosinophils % 0.4 Basophils % 0.2 Nucleated RBC % 0.0 Absolute Neutrophils 10.62 H Absolute Lymphocytes 0.40 L Absolute Monocytes 0.57 Absolute Eosinophils 0.05 Absolute Basophils 0.02 PT 12.0 H INR 1.2 H VBG Lactate 1.2 Sodium 137 Potassium 4.5 Chloride 94 L Carbon Dioxide 36.0 H Anion Gap 6.5 BUN 30 H Creatinine 0.7 Est GFR (CKD-EPI 2020) 85.49 Glucose 97 Calcium 9.8 Magnesium 1.8 Total Bilirubin 0.40 AST 51 H ALT 12 Alkaline Phosphatase 120 H Troponin I 3477 H* 4662 H* Total Protein 7.8 Albumin 3.7 TSH 2.67 ABO/Rh O Positive Antibody Screen NEGATIVE Last Vital Signs Pulse 82 07/02/25 14:39 Resp 14 07/02/25 14:39 BP 122/84 07/02/25 14:39 VTE Prohylaxis Risk Level: Moderate/High Risk Prophylaxis: Patient anticoagulated Time Spent Time spent with Patient: 55-74 minutes Time was spent: preparing to see the patient(eg.review tests), obtaining and/or reviewing separately otained hiistory, ordering medications,tests, procedures, referring, communicating with other health health care administrator, indepentently interpreting results, counseling the patient and care coordination
[2025-07-02 22:08] LABS: Troponin I 7064 ng/L (<35)
[2025-07-02 22:35] VITALS: BP 118/70; PULSE 86; RESP 18; TEMP 36.5; O2SAT 100
--- NOTE | 2025-07-02 23:11 | W.PC.ACHO ---
Registration Status: REG ER Primary Language: Preferred Language: ED Information & Data Chief Complaint GenMedical 07/02/25 17:50 Chief Complaint GenMedical 07/02/25 15:49 Triage Note increase fatigue, pale, POC 07/02/25 14:39 HGB low at express care, Medical / Surgical History (Last Reviewed 04/08/25 @ 09:25 by Rosana Cantu RN) Pneumonia COPD (chronic obstructive pulmonary disease) Hypercholesterolemia (Last Reviewed 04/08/25 @ 09:25 by Rosana Cantu RN) S/P tonsillectomy Most Recent Vital Signs Temperature Source Tympanic 07/02/25 14:39 Pulse 82 07/02/25 14:39 Respiratory Rate 14 07/02/25 14:39 Respiratory Effort Normal, Non-Labored 07/02/25 20:53 Respiratory Depth Normal 07/02/25 20:53 Respiratory Pattern Normal 07/02/25 20:53 Blood Pressure 122/84 07/02/25 14:39 Oxygen Delivery Method Room Air 07/02/25 14:39 Oxygen Flow Rate 0 07/02/25 14:39 Allergies No Known Allergies Allergy (Verified 07/02/25 14:41) Precautions Isolation Standard precaution 07/02/25 17:50 Active Medications Generic Name Dose Route Start Last Admin Trade Name Freq PRN Reason Stop Dose Admin Heparin Sodium/Sodium Chloride 25,000 unit in 250 mls @ 0 mls/hr 07/02/25 20:30 07/02/25 20:49 IVINF 5 mls/hr INFUSION PAULO 5 mls/hr Protocol Administration Per Protocol Iohexol 100 ml 07/02/25 16:00 07/02/25 15:47 Omnipaque 350 Mg/Ml 100 Ml Btl IJ 08/01/25 23:59 60 ml DIRECTED PAULO Administration Sodium Chloride 0 ml 07/02/25 15:46 07/02/25 15:47 Normal Saline Flush 10 Ml Syr IVP 10 ml PRN PRN Administration Sodium Chloride 50 ml 07/02/25 16:00 07/02/25 15:47 Normal Saline - Diluent 50 Ml Vial IJ 50 ml DIRECTED PAULO Administration IV IV Catheter Type [Left Saline Lock Antecubital] IV Catheter Gauge [Left 20 Antecubital] Diet Orders Category Date Time Status Nothing Per Oral [DIET] Nutrition 07/02/25 20:49 Active Diagnostics 11/07/02/25 07/02/25 Range/Units 21:23 18:55 17:05 WBC 11.72 H (4.4-10.8) 10^3/uL RBC 3.69 L (3.93-5.22) 10^6/uL Hgb 10.7 L (11.2-15.7) g/dL Hct 34.7 L (36.0-46.0) % MCV 94 (80-95) fL MCH 29.0 (27.0-33.0) pg MCHC 30.8 L (32.0-36.0) % RDW 15.7 H (11.7-14.6) % Plt Count 187 (130-400) 10^3/uL MPV 10.6 (8.0-11.0) fL Immature Gran % 0.5 % Neutrophils % 90.6 % Lymphocytes % 3.4 % Monocytes % 4.9 % Eosinophils % 0.4 % Basophils % 0.2 % Nucleated RBC % 0.0 (0.0-0.3) % Absolute Neutrophils 10.62 H (1.2-6.7) 10^3/uL Absolute Lymphocytes 0.40 L (1.2-3.4) 10^3/uL Absolute Monocytes 0.57 (0.1-0.8) 10^3/uL Absolute Eosinophils 0.05 (0.0-0.7) 10^3/uL Absolute Basophils 0.02 (0.0-0.2) 10^3/uL PT 12.0 H (9.1-11.1) sec INR 1.2 H (0.9-1.1) VBG Lactate 1.2 (<or=2.0) mmol/L Sodium 137 (136-145) mmol/L Potassium 4.5 (3.5-5.1) mmol/L Chloride 94 L (98-107) mmol/L Carbon Dioxide 36.0 H (20.0-31.0) mmol/L Anion Gap 6.5 (3-11) mmol/L BUN 30 H (9-23) mg/dL Creatinine 0.7 (0.55-1.02) mg/dL Est GFR (CKD-EPI 2020) 85.49 (mL/min/1.73m2) Glucose 97 (74-106) mg/dL Calcium 9.8 (8.3-10.6) mg/dL Magnesium 1.8 (1.6-2.6) mg/dL Total Bilirubin 0.40 (0.2-1.2) mg/dL AST 51 H (<34) U/L ALT 12 (10-49) U/L Alkaline Phosphatase 120 H (46-116) U/L Troponin I 7064 H* 4662 H* 3477 H* (<35) ng/L Total Protein 7.8 (5.7-8.2) g/dL Albumin 3.7 (3.4-5.0) g/dL TSH 2.67 (0.55-4.78) uIU/mL ABO/Rh O Positive Antibody Screen NEGATIVE Intake and Output - 24 Hour Total 07/02/25 14:27 thru 07/02/25 14:39 Weight 40.823 kg Falls Risk Assessment History of Falls No History 07/02/25 17:50 Contributing Factors Confusion 07/02/25 17:50 Ambulatory Aids Uses ambulatory device + 07/02/25 17:50 Tubes/Lines With any additional score 07/02/25 17:50 Gait Evaluation No gait disturbance 07/02/25 17:50 Fall Total Score 53 07/02/25 17:50 Level of Risk High Risk 07/02/25 17:50 Problems (Last Reviewed 04/08/25 @ 09:25 by Rosana Cantu RN) GI bleeding (Chronic) STEMI (ST elevation myocardial infarction) (Acute) Dementia (Chronic) Anemia (Chronic ~04/19/24) Underweight (Acute) Hypothyroid (Chronic) Attestation Statement: By documenting the first initial, last name, and credentials of the reporting nurse below, both parties acknowledge that all relevant information regarding the patient handoff has been communicated, and that all questions have been addressed to ensure continuity and safety of care. Additional Patient Information/Comments: Received pt from ED nurse tamiko per ed bed,transferred pt tp BSC for bathroom needs with 2 assist using GB.Pt. able to urinate and defecate and assisted back to bed after potty and getting her wt. from standing scale.Pt with PIV on her left AC wit heparin drip running.Skin care to her back as pt complaint for itchiness and meplex applied to her protruded spine to protect the skin.Situeated pt. to comfort and ensured safety (bed alrm on) as pt is confused. Report Received From: TAMIKO VALDOVINOS nurse @ [phone]
[2025-07-02 23:12] LABS: PTT Activated 36.3 sec (20.6-30.2)
[2025-07-02] MEDS: Metoprolol 12.5 MG TAB PO (23:17)
[2025-07-02] MEDS: Atorvastatin 40 MG TAB 80 MG PO (23:18)
[2025-07-03 04:45] LABS: PTT Activated 45.7 sec (20.6-30.2)
[2025-07-03 05:01] VITALS: BP 102/68; PULSE 90; RESP 22; TEMP 35.9; O2SAT 92
[2025-07-03] MEDS: Levothyroxine 75 MCG TAB PO (05:33)
[2025-07-03 05:53] LABS: Troponin I 11889 ng/L (<35); Vitamin B12 733 pg/mL (211-911)
[2025-07-03 05:55] LABS: ALT 22 U/L (10-49); AST 140 U/L (<34); Albumin 3.5 g/dL (3.4-5.0); Alkaline Phosphatase 114 U/L (46-116); Anion Gap 6.2 mmol/L (3-11); BUN 28 mg/dL (9-23); Bilirubin, Total 0.40 mg/dL (0.2-1.2); CO2 35.4 mmol/L (20.0-31.0); Calcium 9.4 mg/dL (8.3-10.6); Chloride 96 mmol/L (98-107); Glucose 78 mg/dL (74-106); Magnesium 1.7 mg/dL (1.6-2.6); Potassium 4.3 mmol/L (3.5-5.1); Sodium 138 mmol/L (136-145); Total Protein 7.3 g/dL (5.7-8.2)
[2025-07-03 05:57] LABS: Iron 18 ug/dL (50-170); Total Iron Binding Capacity 248 ug/dL (250-425); Transferrin Sat 7 % (15-50)
[2025-07-03 06:01] LABS: HCT 30.7 % (36.0-46.0); HGB 9.7 g/dL (11.2-15.7); MCH 29.9 pg (27.0-33.0); MCHC 31.6 % (32.0-36.0); MCV 95 fL (80-95); MPV 10.6 fL (8.0-11.0); Platelet Count 231 10^3/uL (130-400); RBC 3.24 10^6/uL (3.93-5.22); RDW 15.6 % (11.7-14.6); RDW-SD 54.5 fL; WBC 10.74 10^3/uL (4.4-10.8)
[2025-07-03 07:00] LABS: Glucose Negative (Negative)
[2025-07-03 07:13] LABS: C & S Indicated? No; RBC 0-2 HPF (0-2); WBC Negative HPF (0-5)
[2025-07-03 07:55] VITALS: BP 102/64; PULSE 86; RESP 17; TEMP 35.8; O2SAT 90
--- NOTE | 2025-07-03 08:53 | W.PM.PROGNOT ---
Date of Service Date of service: 07/03/25 Time of Service: 07:30 Assessment and Plan Assessment and plan (1) STEMI (ST elevation myocardial infarction): Status: Acute Assessment and plan: - Presenting symptoms with dyspnea on exertion and weakness. -EKG and persistently elevating troponins (3477 > 4662>7064 >36432) diagnostic for STEMI -pt being medically managed with ASA 81 mg PO daily, clopidogrel 75 mg PO daily, atorvastatin 80 mg PO daily, and heparin infusion -continue monitoring on telemetry -pt is DNR/DNI (2) GI bleeding: Status: Chronic Assessment and plan: -Pt presented to ED with sx c/w UGIB (melena), no active bleeding noted on CTA abd/pel -continue pantoprazole 40 mg BID -continue monitoring H+H (hgb 10.7 > 9.7), no transfusion indicated at this time (consider if hgb <9.0 due to STEMI) -Pt's family declined intervention, surgery therefore not consulted -Pt to remain NPO -continue monitoring for signs of active bleeding (3) Hypothyroid: Status: Chronic Assessment and plan: -continue home dose of levothyroxine -TSH at goal, no change in therapy indicated (4) Underweight: Status: Acute Assessment and plan: -chronic, attributed to decreased appetite c/w dementia -consider nutrition consult when cleared for PO intake -continue boost nutritional supplement when cleared for PO intake (5) COPD (chronic obstructive pulmonary disease): Assessment and plan: -No signs of active exacerbation at this time -continue PRN duonebs as needed (6) Anemia: Status: Chronic Assessment and plan: -acute worsening of chronic iron-deficiency anemia due to UGIB -continue monitoring H+H (hgb 10.7 >9.7). -AM labs notable for low transferrin (7), iron (18), and TIBC (248); all decreased from previous on 03/22/24 (previous transferrin 8, iron 26, TIBC 321) -restart home iron supplementation (7) Dementia: Status: Chronic Assessment and plan: -chronic, no new features noted since hospitalization concerning for acute delirium (8) Synovial cyst of popliteal space [Santos], right knee: Status: Acute Assessment and plan: -Noted on LE ultrasound, no DVT. No acute treatment indicated, may use RHEA stockings/HILDA wrap/elevation/ice as needed for comfort. (9) Advanced care planning/counseling discussion: Status: Acute Assessment and plan: -Dr Thompson confirmed with her brother Venkat (who is DPOA) her wishes to be DNR/DNI. Family does not wish for pt to be transferred to tertiary care for aggressive treatment, but are agreeable to blood transfusion if needed. -palliative care consult ordered Subjective Subjective Interval history since last seen: No acute events reported overnight. Shannon is resting comfortably in bed, denies chest pain, dizziness, shortness of breath, nausea/vomiting, abdominal pain, or blood in stool or urine. She is notably confused, asking repeatedly when her brother is coming to visit; this does appear to be normal per baseline dementia. Exam Const General: cooperative and frail appearing Nutritional Appearance: cachectic Orientation: alert, oriented to person, oriented to place, not oriented to time and confused HENMT Head: normal to inspection and atraumatic Resp Effort & Inspection: normal respiratory effort and able to speak in complete sentences Auscultation: clear to auscultation bilaterally Cardio Rate: regular rate Rhythm: regular rhythm Heart Sounds: murmur Pulses: radial pulses present GI Inspection: normal to inspection and non-distended Palpation: soft, not firm and no masses Skin General skin exam: no rashes or lesions noted and no ecchymosis Extrem General: no pedal edema Objective Last Vital Signs Temp 96.4 F L 07/03/25 07:55 Pulse 86 07/03/25 07:55 Resp 17 07/03/25 07:55 BP 102/64 07/03/25 07:55 Pulse Ox 90 L 07/03/25 07:55 Laboratory Results - last 24 hr 07/02/25 07/02/25 07/02/25 17:05 18:55 21:23 WBC 11.72 H RBC 3.69 L Hgb 10.7 L Hct 34.7 L MCV 94 MCH 29.0 MCHC 30.8 L RDW 15.7 H Plt Count 187 MPV 10.6 Immature Gran % 0.5 Neutrophils % 90.6 Lymphocytes % 3.4 Monocytes % 4.9 Eosinophils % 0.4 Basophils % 0.2 Nucleated RBC % 0.0 Absolute Neutrophils 10.62 H Absolute Lymphocytes 0.40 L Absolute Monocytes 0.57 Absolute Eosinophils 0.05 Absolute Basophils 0.02 PT 12.0 H INR 1.2 H APTT VBG Lactate 1.2 Sodium 137 Potassium 4.5 Chloride 94 L Carbon Dioxide 36.0 H Anion Gap 6.5 BUN 30 H Creatinine 0.7 Est GFR (CKD-EPI 2020) 85.49 Glucose 97 Calcium 9.8 Magnesium 1.8 Iron TIBC Transferrin % Sat Total Bilirubin 0.40 AST 51 H ALT 12 Alkaline Phosphatase 120 H Troponin I 3477 H* 4662 H* 7064 H* Total Protein 7.8 Albumin 3.7 Vitamin B12 TSH 2.67 Urine Color Urine Clarity Urine pH Ur Specific [place] Urine Protein Urine Ketones Urine Blood Urine Nitrite Urine Bilirubin Urine Urobilinogen Ur Leukocyte Esterase Urine RBC Urine WBC Ur Epithelial Cells Urine Crystals Urine Bacteria Urine Casts Urine Mucus Ur Culture Indicated? Urine Glucose ABO/Rh O Positive Antibody Screen NEGATIVE 07/02/25 07/03/25 07/03/25 22:47 03:00 05:45 WBC 10.74 RBC 3.24 L Hgb 9.7 L Hct 30.7 L MCV 95 MCH 29.9 MCHC 31.6 L RDW 15.6 H Plt Count 231 MPV 10.6 Immature Gran % Neutrophils % Lymphocytes % Monocytes % Eosinophils % Basophils % Nucleated RBC % Absolute Neutrophils Absolute Lymphocytes Absolute Monocytes Absolute Eosinophils Absolute Basophils PT INR APTT 36.3 H 45.7 H VBG Lactate Sodium 138 Potassium 4.3 Chloride 96 L Carbon Dioxide 35.4 H Anion Gap 6.2 BUN 28 H Creatinine 0.7 Est GFR (CKD-EPI 2020) 84.02 Glucose 78 Calcium 9.4 Magnesium 1.7 Iron 18 L TIBC 248 L Transferrin % Sat 7 L Total Bilirubin 0.40 AST 140 H ALT 22 Alkaline Phosphatase 114 Troponin I [address] H* Total Protein 7.3 Albumin 3.5 Vitamin B12 733 TSH Urine Color Yellow Urine Clarity Clear Urine pH 6.5 Ur Specific [place] 1.010 Urine Protein 30 H Urine Ketones Negative Urine Blood Trace-intact H Urine Nitrite Negative Urine Bilirubin Negative Urine Urobilinogen 0.2 Ur Leukocyte Esterase Negative Urine RBC 0-2 Urine WBC Negative Ur Epithelial Cells Rare Urine Crystals Few Amorphous Urine Bacteria Negative Urine Casts Negative Urine Mucus Negative Ur Culture Indicated? No Urine Glucose Negative ABO/Rh Antibody Screen Time Spent with Patient Time Spent with Patient: >50 minutes Time was spent: preparing to see the patient(eg.review tests), obtaining and/or reviewing separately otained hiistory, ordering medications,tests, procedures, referring, communicating with other health home care physical therapist, indepentently interpreting results, counseling the patient and care coordination
[2025-07-03] MEDS: Aspirin 81 MG CHEW PO (09:49)
[2025-07-03] MEDS: Metoprolol 12.5 MG TAB PO ×2 (09:49→21:07)
[2025-07-03] MEDS: Pantoprazole 40 MG TABCR PO (09:49)
[2025-07-03] MEDS: Clopidogrel 75 MG TAB PO (09:49)
--- NOTE | 2025-07-03 09:58 | INITIAL_ITS ---
Date of service: 07/03/25 Time of Service: 09:58 Care Management Initial Assmt Initial Assessment Reason for Hospitalization: STEMI Functional Status/Living Situation Patient Presentation: Shannon presented to the ED yesterday afternoon with c/o fatigue, low Hgb and melena. She had been seen at [facility] earlier in the day with c/o genralized weakness and confusion over the last few days. She vomited in the waiting room there. Due to her symptoms it was recommended she go to the ED. She was found to have a STEMI and also an UGIB. Decision was made by the family to not transfer for procedure, but to stay at [facility] and treat medically. She was started on heparin - but no bolus was given due to her bleeding. Shannon was lying in bed when CM met with her. She was pleasantly confused. She was worried that she needs to get to the bank because she has 3 people to pay. She looked comfortable, and seemed calmed when CM stated that her brother,Venkat, would take care of it. called Jess Robledo's brother and [facility]. He was jackson. He stated that Jess has lived with him for 7years. They were children of the [facility], and hadn't spent much time together before then. Jess was never and has no children. Venkat stated that Jess is usually ambulatory, but has become increasingly weak over the last week or so. She generally uses a walker. Venkat stated that he has noticed that each time Shannon gets sick, she seems to be a little more confused and doesn't quite return to the capacity she was at prior to the illness. Shannon has a bedroom in Venkat's house. She has a commode in the room, and an lift chair in the living room. Venkat's daughter and granddaughter are both LNAs, and help Shannon with her personal care. Venkat intends to take Shannon home with him. He is open to services and also a referral to [facility] for options counseling. Referral was sent. Town of Residence: [place] Resides with: Other (brother, Venkat and his , Viridiana. 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) Instrumental Activities of Daily Living (ADLs): Requires support Medications Medication Management: No Issues/Barriers identified Physical Functioning/Mobility Assistive Device: walker Advance Directives Advance Directives: Do you have an Advance Directive: Y , 22:33 AD On File at [facility]: Y 07/02/25, 22:33 Date Asked 07/02/25 07/02/25, 22:33 AD Date Reviewed 07/02/25 07/02/25, 22:33 COLST On File at [facility] Yes 08/14/24, 12: COLST Date Scanned 08/14/24 08/14/24, 12: Code Status Resuscitation Status DNR/DNI Insurance Coverage/Financial Issues Insurance: Medicare Part A & B - Care Team Visit Care Team Role Provider Type Jemal Wing MD MD [facility] STAFF PHYSICIAN Sean Henderson Primary Care Provider NON-[facility] STAFF PHYSICIAN Micheline Escobar MD Emergency Provider [facility] STAFF PHYSICIAN Lna Thompson Admit Provider [facility] STAFF PHYSICIAN Attending Provider Discharge Potential Discharge Needs: PT Evaluation (will be ordered when off heparing drip) and PCP F/U Appt Anticipated Barriers to Discharge: None Identified Patient/Family Education Needs: Review discharge instructions, discuss Ask Me Three Transportation: Private vehicle (vs [facility] wheel chair van) Plan: Anticipate that Shannon will return home to with new services of [facility] SN, PT/OT. Referral was made to [facility] today for options counseling. Shannon will f/u with her PCP and continue per her plan of care. She will transport either with Venkat, or via [facility] wheelchair van, depending on progress with PT. CM will continue to follow and to update the plan as needed. Social Determinants of Health Screening Will the Patient Participate in the Screening?: Unable to obtain Do you worry about having a steady place to live?: no In the past 12 months, have you had to go without electric, gas, oil or water in your home?: no 1. Within the past 12 months, we worried whether our food would run out before we got money to buy more.: Never true 2. Within the past 12 months, the food we bought just didn't last and we didn't have money to get more.: Never true Has lack of transportation kept you from medical appointments or from doing things needed for daily living?: no Has anyone in your life made you feel unsafe or unsupported?: no How hard is it for you to pay for the very basics like food, housing, medical care, and heating? Would you say it is:: Not hard at all Do you want help finding or keeping work or a job?: I do not need or want help If for any reason you need help with day-to-day activities such as bathing, preparing meals, shopping, managing finances, etc., do you get the help you need?: I could use a little more help Do you speak a language other than Spanish at home?: No Health Related Social Needs Health related social needs: problems with daily activities (Z73.9) Health related social needs details: pt with history of dementia, lives with brother, appears well cared for PFS All Active Problems ST elevation (STEMI) myocardial infarction (Acute) Synovial cyst of popliteal space [Santos], right knee (Acute) GI bleeding (Chronic) STEMI (ST elevation myocardial infarction) (Acute) DNR (do not resuscitate) discussion (Acute) SASKIA (obstructive sleep apnea) (Chronic) Acute right hip pain (Acute) Dementia (Chronic) Anemia (Chronic ~04/19/24) Unsteady gait (Chronic) Advanced care planning/counseling discussion (Acute) Palliative care patient (Acute) Underweight (Acute) Mild cognitive impairment with memory loss (Acute) Bronchiectasis (Acute) [facility], last eval 05/2023 Hypothyroid (Chronic) CAP (community acquired pneumonia) (Acute) Medical History Pneumonia COPD (chronic obstructive pulmonary disease) Hypercholesterolemia Surgical History S/P tonsillectomy Social History (Updated 07/02/25 @ 22:23 by Lan Thompson) Smoking/Tobacco Use Status: Never Smoking risk assessment performed?: Yes Alcohol Intake: never Drug use: Never Substance use type: does not use Adopted: Yes Housing: house Do you feel safe at home: Yes Do you feel safe in your relationship?: Yes Additional Social history: [place]. 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
[2025-07-03 10:19] LABS: PTT Activated 72.1 sec (20.6-30.2)
[2025-07-03 11:02] VITALS: BP 109/65; PULSE 85; RESP 17; TEMP 36.3; O2SAT 93
--- NOTE | 2025-07-03 14:39 | CHAPLAIN ---
Shannon was curled up in bed when I visited, but was awake. Her brother, Venkat, was with her. Shannon was pleasant and asked a few questions, and appeared to be confused. Her brother was supportive and caring. Shannon seemed to like the comfort shawl I brought in for her.
[2025-07-03 14:58] VITALS: BP 106/67; PULSE 88; RESP 17; TEMP 36.1; O2SAT 93
--- NOTE | 2025-07-03 16:41 | PHA.REVIEW2 ---
Pharmacy Admission Review Admission Clinical Review Admission Pharmacy Review: Synovial cyst of popliteal space [Santos], right knee (Acute) STEMI (ST elevation myocardial infarction) (Acute) Advanced care planning/counseling discussion (Acute) Underweight (Acute) No Known Allergies Allergy (Verified 07/02/25 14:41) Resuscitation Status DNR/DNI Weight 39.825 kg Pharmacy Admission Review Renal Dosing Renal Dosing: BUN 28 mg/dL (9-23) H 07/03/25 03:00 Creatinine 0.7 mg/dL (0.55-1.02) 07/03/25 03:00 Medications needing adjustments: Reviewed (Scr=0.7; no meds need adjustment) Anticoagulation Anticoagulation: Hgb 9.7 g/dL (11.2-15.7) L 07/03/25 03:00 Hct 30.7 % (36.0-46.0) L 07/03/25 03:00 Plt Count 231 10^3/uL (130-400) 07/03/25 03:00 INR 1.2 (0.9-1.1) H 07/02/25 17:05 Creatinine 0.7 mg/dL (0.55-1.02) 07/03/25 03:00 Therapeutic Anticoagulation: Reviewed Medications: Heparin Opiate Usage Evaluate Pain Scale/Pains Meds: N/A Relevant Labs Relevant Labs: Sodium 138 mmol/L (136-145) 07/03/25 03:00 Potassium 4.3 mmol/L (3.5-5.1) 07/03/25 03:00 Chloride 96 mmol/L (98-107) L 07/03/25 03:00 Magnesium 1.7 mg/dL (1.6-2.6) 07/03/25 03:00 Electrolytes, C-Reactive P, ESR: Reviewed DM Control DM Control: Reviewed (glucose=78; no history of DM) Cardiac Review Cardiac Review: Troponin I 37127 ng/L (<35) H* 07/03/25 03:00 BP, HR, EF%: Reviewed List meds needing interventions: mt=235/67; hr=88 QTc Review QTc: Reviewed List meds needing interventions: [id number] IV to PO Switch IV Medications: Reviewed Home Meds Home Med List reviewed: Reviewed (home meds ordered) Pharmacy Antibiotic Review Comments: no antibiotics ordered at this time
[2025-07-03 17:29] LABS: PTT Activated 69.5 sec (20.6-30.2)
[2025-07-03] MEDS: OLANZapine 5 MG TAB 2.5 MG PO (17:35)
[2025-07-03 19:41] VITALS: BP 100/75; PULSE 65; RESP 15; TEMP 36.1; O2SAT 92
[2025-07-03] MEDS: Atorvastatin 40 MG TAB 80 MG PO (21:07)
[2025-07-03 23:02] VITALS: BP 134/66; PULSE 80; RESP 18; TEMP 36; O2SAT 90
[2025-07-04] MEDS: PANTOPRAZOLE 40 MG in Normal Saline 100 ML 10 MG IV (00:18)
[2025-07-04] MEDS: Normal Saline Flush 10 ML SYR IVP ×2 (03:53→12:20)
[2025-07-04] MEDS: Levothyroxine 75 MCG TAB PO (05:58)
[2025-07-04 06:32] LABS: PTT Activated 65.5 sec (20.6-30.2)
--- NOTE | 2025-07-04 07:35 | W.PM.PROGNOT ---
Date of Service Date of service: 07/04/25 Time of Service: 07:30 Assessment and Plan Assessment and plan (1) Comfort measures only status: Status: Acute Assessment and plan: After extensive discussion between palliative care and patient's family, decision made to transition patient to comfort measures only with clustered care, discontinuation of montioring and vital signs, and morphine PRN for comfort, with plan to initiate morphine infusion if needed. (2) STEMI (ST elevation myocardial infarction): Status: Acute Assessment and plan: - Presenting symptoms with dyspnea on exertion and weakness, diagnosed with STEMI -pt is DNR/DNI (3) GI bleeding: Status: Chronic Assessment and plan: -Pt presented to ED with sx c/w UGIB (melena), no active bleeding noted on CTA abd/pel, continues to have bloody stools (4) Encephalopathy acute: Status: Acute Assessment and plan: -undifferentiated, possible etiologies include spontaneous intracranial hemorrhage, cerebral hypoperfusion due to IN, hypoactive delirium. No history of metabolic derangements during hospitalization or trauma. 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 status (5) Hypothyroid: Status: Chronic Assessment and plan: -chronic, home levothyroxine discontinued due to WAX PATTERN ASSEMBLER status (6) Underweight: Status: Acute Assessment and plan: -chronic, attributed to decreased appetite c/w dementia (7) COPD (chronic obstructive pulmonary disease): Assessment and plan: -No signs of active exacerbation at this time -continue PRN duonebs as needed (8) Anemia: Status: Chronic Assessment and plan: -acute worsening of chronic iron-deficiency anemia due to UGIB =home supplementation discontinued due to WAX PATTERN ASSEMBLER status (9) Dementia: Status: Chronic Assessment and plan: -last night, noted to have agitation, given Seroquel for hyperactivity. -Today pt transitioned to WAX PATTERN ASSEMBLER care, haldol ordered for agitation as needed -chronic condition (10) Synovial cyst of popliteal space [Santos], right knee: Status: Acute Assessment and plan: -Noted on LE ultrasound, no DVT. No acute treatment indicated, may use RHEA stockings/HILDA wrap/elevation/ice as needed for comfort. (11) Advanced care planning/counseling discussion: Status: Acute Assessment and plan: -Dr Thompson confirmed with her brother Venkat (who is DPOA) her wishes to be DNR/DNI. Family does not wish for pt to be transferred to tertiary care for aggressive treatment, but are agreeable to blood transfusion if needed. -palliative care consulted, pt transitioned to WAX PATTERN ASSEMBLER care Subjective Subjective Patient reports: blood in stool Interval history since last seen: Shannon is noted to be increasingly confused today, unable to answer questions. She is sitting quietly in bed, will make eye contact when prompted but does not participate in interview or physical exam. This is new per RN since yesterday. Pt had one BM today, bloody. Speech therapy consult requested by RN as pt was noted to not be swalloing pills this morning, but rather pocketing them. Exam Const Nutritional Appearance: cachectic Orientation: alert, awake and confused Resp Effort & Inspection: normal respiratory effort Auscultation: clear to auscultation bilaterally Cardio Rate: regular rate Rhythm: regular rhythm Pulses: radial pulses present GI Inspection: normal to inspection Palpation: soft, not firm, no guarding and no masses Skin General skin exam: no rashes or lesions noted Trauma: no lacerations or abrasions Neuro General: patient alert and patient awake Cranial Nerves: facial strength normal Objective Last Vital Signs Temp 96.8 F L 07/03/25 23:02 Pulse 80 07/03/25 23:02 Resp 18 07/03/25 23:02 BP 134/66 07/03/25 23:02 Pulse Ox 90 L 07/03/25 23:02 Laboratory Results - last 24 hr 07/03/25 07/03/25 07/04/25 10:00 17:09 05:48 APTT 72.1 H 69.5 H 65.5 H Troponin I 07339 H* Time Spent with Patient Time Spent with Patient: >50 minutes Time was spent: preparing to see the patient(eg.review tests), obtaining and/or reviewing separately otained hiistory, ordering medications,tests, procedures, referring, communicating with other health critical care physician, indepentently interpreting results, counseling the patient and care coordination
[2025-07-04 07:44] VITALS: BP 92/61; PULSE 88; RESP 16; TEMP 36.7; O2SAT 89
[2025-07-04] MEDS: Pantoprazole 40 MG VIAL IVP (08:24)
--- NOTE | 2025-07-04 09:19 | PDOC.CMPRO ---
Date of service: 07/04/25 Time of Service: 09:19 Social Determinants of Health Screening Will the Patient Participate in the Screening?: Unable to obtain Do you worry about having a steady place to live?: no In the past 12 months, have you had to go without electric, gas, oil or water in your home?: no Has lack of transportation kept you from medical appointments or from doing things needed for daily living?: no Has anyone in your life made you feel unsafe or unsupported?: no How hard is it for you to pay for the very basics like food, housing, medical care, and heating? Would you say it is:: Not hard at all Do you want help finding or keeping work or a job?: I do not need or want help If for any reason you need help with day-to-day activities such as bathing, preparing meals, shopping, managing finances, etc., do you get the help you need?: I could use a little more help Do you speak a language other than Latvian at home?: No Health Related Social Needs Health related social needs: problems with daily activities (Z73.9) Health related social needs details: pt with history of dementia, lives with brother, appears well cared for
--- NOTE | 2025-07-04 10:14 | W.PALLCONSUL ---
Date of service: 07/04/25 Time of Service: 10:14 History of Present Illness Narrative: Shannon was seen for palliative consultation to discuss GOC. She presented to ED with STEMI and the decision was made to manage medically, she did not want transfer to a tertiary care center. Due to underlying dementia and increased fatigue, her family preferred to meet outside of her room. Meeting with her brother/HCA, Venkat and great niece, Jagdeep. Discussed her current condition. She is weak, fatigued, not eating. Her troponin continues to increase, it is up to nearly 22k today. Her brother took her in 7 years ago and has been taking care of her. He feels she would want to be kept comfortable in this situation, Jagdeep agrees. Venkat prefers for Shannon to transition to NEURO UROLOGIST. Discussed stopping all treatments/medications and ordering comfort meds. Will start with PRN MS and consider drip depending on how much she requires to maintain comfort. Assessment and Plan Assessment and plan (1) Comfort measures only status: Status: Acute Assessment and plan: Shannon is an 85 year old female who presented to ED with STEMI, declined tertiary transfer, and continues to decline. She is weak, taking very little PO, fatigued. She is unable to participate in the visit due to underlying dementia and fatigue/sleeping. Her brother/DPOA decided to transition to NEURO UROLOGIST. Her life expectancy is measured in hours to days, less likely weeks. Her family prefers to keep her here at the hospital for end of life care. Discussed with Dr. Wing. She will transition at this time to comfort care. (2) Altered mental status: Status: Acute (3) ST elevation (STEMI) myocardial infarction: Status: Acute (4) Advanced care planning/counseling discussion: Status: Acute Assessment and plan: See above. Meeting with brother/CGR/DPOA and meli. Plan to transition to NEURO UROLOGIST here at [facility]. Review of Systems Narrative: unable PFSH All Active Problems (Updated 07/04/25 @ 11:38 by Aviva Oneil) Comfort measures only status (Acute) Encephalopathy acute (Acute) Altered mental status (Acute) ST elevation (STEMI) myocardial infarction (Acute) Synovial cyst of popliteal space [Santos], right knee (Acute) GI bleeding (Chronic) STEMI (ST elevation myocardial infarction) (Acute) DNR (do not resuscitate) discussion (Acute) SASKIA (obstructive sleep apnea) (Chronic) Acute right hip pain (Acute) Dementia (Chronic) Anemia (Chronic ~04/19/24) Unsteady gait (Chronic) Advanced care planning/counseling discussion (Acute) Palliative care patient (Acute) Underweight (Acute) Mild cognitive impairment with memory loss (Acute) Bronchiectasis (Acute) [facility], last eval 05/2023 Hypothyroid (Chronic) CAP (community acquired pneumonia) (Acute) Medical History Pneumonia COPD (chronic obstructive pulmonary disease) Hypercholesterolemia Surgical History S/P tonsillectomy Social History (Updated 07/02/25 @ 22:23 by Lan Thompson) Smoking/Tobacco Use Status: Never Smoking risk assessment performed?: Yes Alcohol Intake: never Drug use: Never Substance use type: does not use Adopted: Yes Housing: house Do you feel safe at home: Yes Do you feel safe in your relationship?: Yes Additional Social history: Lives with Brother Ray and his in [facility]. 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 She appears fatigued. She is unable to participate in visit due to falling asleep. She does not appear to be in distress HEENT: atraumatic, EOMI, mm dry. Neck: supple Respiratory: respirations appear unabored. Ext: extremities are cool to touch, faint mottling noted to BLEs. Results Last Vital Signs Temp 36.7 C 07/04/25 07:44 Pulse 88 07/04/25 07:44 Resp 16 07/04/25 07:44 BP 92/61 L 07/04/25 07:44 Pulse Ox 89 L 07/04/25 07:44 Labs 07/03/25 03:00 07/03/25 03:00 Labs: Laboratory Results - last 24 hr 07/03/25 07/03/25 07/04/25 10:00 17:09 05:48 APTT 72.1 H 69.5 H 65.5 H Troponin I 11797 H* Time Spent Time Spent with Patient Time Spent(min): 122
[2025-07-04] MEDS: MORPHine 10 MG/ML VIAL 2 MG IV/SC (12:19)
--- NOTE | 2025-07-04 13:06 | W.PM.DDS ---
Date of service: 07/04/25 Time of Service: 13:06 Discharge Plan Disposition Patient Disposition: Discharge Details Reason For Visit: STEMI, GI bleeding Admit Date/Time: 07/02/25 20:48 Admit Provider: Lan Thompson Attending Provider: Lan Thompson Primary Care Provider: Sean Henderson Hospital Course Hospital Course: Patient initially presented to the hospital with chest pain was found to have STEMI. The patient has advanced dementia at family's request they declined transfer to higher level of care and patient was only treated with aspirin, heparin drip, Plavix. During hospitalization patient's condition slowly worsened and ultimately she was transitioned to comfort measures only on the morning of 07/04/2025. However, given severity of patient's illness she ultimately passed 12:56 PM on 07/04/2025 from cardiac arrest secondary to STEMI. Discharge Data Cause of : Cardiac arrest Discharge Sum: Prov Provider Consults: 07/02/25 20:51 Palliative Care Consult [CONS] Routine Consultation Status:: Follow-up needed Clarification:: Manage/follow per spec. Reason for consult:: 85 yo with STEMI declining transfer, also GI bleed Discharge Sum: Diag PCOD Cause of : Cardiac arrest Contributing Factors (1) Comfort measures only status: (2) STEMI (ST elevation myocardial infarction): (3) GI bleeding: (4) Encephalopathy acute: (5) Hypothyroid: (6) Underweight: (7) COPD (chronic obstructive pulmonary disease): (8) Anemia: (9) Dementia: (10) Synovial cyst of popliteal space [Santos], right knee: (11) Advanced care planning/counseling discussion:
--- NOTE | 2025-07-04 13:20 | NUR.NOTE ---
208 Santos, 1256, Maura Renteria RN, Liam Acosta RN declared passing of patient. TOD 1256. Dr Jemal Wing notified via secure chat at 1302 family at bedside, no distress present/noted before passing. called [facility], referral . referral declined due to patient history of dementia, no further intervention at this time
--- NOTE | 2025-07-04 14:34 | CHAPLAIN ---
I was notified after Shannon and spent some time with her brother, Venkat and another family members. They had done a terffic job caring for her since she moved back to the area seven years ago and are making the arrangements now for her burial as she discussed with them, Venkat said.
--- NOTE | 2025-07-04 14:44 | CMPROGNOTE_ITS ---
Date of service: 07/04/25 Time of Service: 14:44 Care Management Progress Note Progress Note Text Progress Note Text: Shannon's brother and niece visited this morning and Shannon was made ROLLER HELPER. She had grown progressively worse over night and she peacefully at 12:56pm with her brother and niece at her side Social Determinants of Health Screening Will the Patient Participate in the Screening?: Unable to obtain Do you worry about having a steady place to live?: no In the past 12 months, have you had to go without electric, gas, oil or water in your home?: no Has lack of transportation kept you from medical appointments or from doing things needed for daily living?: no Has anyone in your life made you feel unsafe or unsupported?: no How hard is it for you to pay for the very basics like food, housing, medical care, and heating? Would you say it is:: Not hard at all Do you want help finding or keeping work or a job?: I do not need or want help If for any reason you need help with day-to-day activities such as bathing, preparing meals, shopping, managing finances, etc., do you get the help you need?: I could use a little more help Do you speak a language other than Slovenian at home?: No Health Related Social Needs Health related social needs: problems with daily activities (Z73.9) Health related social needs details: pt with history of dementia, lives with brother, appears well cared for
== END 2025-07-04 15:15 | disposition expired ==
LOC: ER 22:33 → MS 22:34
PROVIDERS: Hospitalist; Admitting Provider Family Medicine; Emergency Provider Emergency Medicine; PCP Student in an Organized Health Care Education/Training Program; Responsible Provider Family Medicine; Visit Provider Family Medicine
DX: I21.3 ST elevation (STEMI) myocardial infarction of unspecified site (principal); E03.9 Hypothyroidism, unspecified; R63.6 Underweight; F01.B0 Vascular dementia, moderate, without behavioral disturbance, psychotic disturbance, mood disturbance, and anxiety; M70.21 Olecranon bursitis, right elbow; Z51.5 Encounter for palliative care; Z66 Do not resuscitate; R53.1 Weakness; J44.9 Chronic obstructive pulmonary disease, unspecified; G47.33 Obstructive sleep apnea (adult) (pediatric); R26.81 Unsteadiness on feet; J47.9 Bronchiectasis, uncomplicated; E78.00 Pure hypercholesterolemia, unspecified; Z79.899 Other long term (current) drug therapy; K92.1 Melena; Z68.1 Body mass index [BMI] 19.9 or less, adult; D50.9 Iron deficiency anemia, unspecified; M79.89 Other specified soft tissue disorders
CPT/HCPCS: 00123; 36415; 80053; 85027; 86850; 86900; 86901; 93005; 96361; 96365; 96375; 99291; 74174; 81003; 81015; 82607; 83540; 83550; 83605; 83735; 84443; 84484; 85025; 85610; 85730; 93010; 93971; 99222; 99233; J1644; J2270; J2470; J3490